=== PATIENT | female | born 1940 | race Caucasian/White ===

== ENCOUNTER 2020-07-02 05:53 | Day surgery (SDC) | payer MEDICARE, BC ==
[2020-06-30 13:35] VITALS: BMI 28.3
[~2020-07-02 05:53] MED LIST: ACETAMINOPHEN TAB 500 MG TAB PO PRN; DEXAMETHASONE SOD PHOSPHATE 4 MG/ML 1 ML VIAL IV ONE; LACTATED RINGERS 1,000 ML IV SCH; MIDAZOLAM 2 MG/2 ML VIAL IV PRN; ONDANSETRON 4 MG/2 ML VIAL IVP ONE; Pre Op ABX Message 1 EACH MISC MISCELLANE ONE
[2020-07-02] MEDS ORDERED: HEPARIN SODIUM,PORCINE 5,000 UNIT/ML 1 ML VIAL SQ PRN (06:00)
[2020-07-02 06:59] LABS: Glucose,Whole Blood 87 mg/dL (75-99)
[2020-07-02] MEDS ORDERED: HYDROmorphone 0.5 MG/0.5 ML SYRINGE IVP PRN (07:00)
[2020-07-02 07:27] LABS: Anisocytosis Slight; Basophils # (A) 0.1 k/uL (0-0.2); Basophils % (A) 1 %; Eosinophils # (A) 0.2 k/uL (0-0.7); Eosinophils % (A) 3 %; HCT 41.3 % (34.0-46.0); HGB 13.6 gm/dL (11.4-16.0); Lymphocytes # (A) 1.6 k/uL (1.0-4.8); Lymphocytes % (A) 25 %; MCH 29.6 pg (25.0-35.0); MCHC 32.8 g/dL (31.0-37.0); MCV 90.4 fL (80.0-100.0); Mean Platelet Volume 7.2; Monocytes # (A) 0.7 k/uL (0-1.0); Monocytes % (A) 10 %; Neutrophils # (A) 3.9 k/uL (1.3-7.7); Neutrophils % (A) 59 %; Platelet Count 228 k/uL (150-450); RBC 4.57 m/uL (3.80-5.40); RDW 16.6 % (11.5-15.5); WBC 6.6 k/uL (3.8-10.6)
[2020-07-02 07:36] LABS: Partial Thromboplastin Time 24.7 sec (22.0-30.0); Prothrombin Time 10.4 sec (9.0-12.0)
[2020-07-02 07:38] LABS: Albumin 3.4 g/dL (3.5-5.0); Calcium 9.5 mg/dL (8.4-10.2); Potassium 4.3 mmol/L (3.5-5.1); Total Bilirubin 1.2 mg/dL (0.2-1.3); Total Protein 6.1 g/dL (6.3-8.2)
[2020-07-02] MEDS ORDERED: SUCCINYLCHOLINE CHLORIDE 100 MG/5 ML SYR IV ONE (07:52)
[2020-07-02] MEDS ORDERED: PROPOFOL 10 MG/ML 20 ML VIAL IV ONE (07:52)
[2020-07-02] MEDS ORDERED: fentaNYL (PF) 50 MCG/ML 2 ML AMP ONE (07:52)
[2020-07-02] MEDS ORDERED: DEXAMETHASONE SOD PHOSPHATE 10 MG/ML 1 ML VIAL ONE (07:52)
[2020-07-02] MEDS ORDERED: ePHEDrine SULFATE/0.9% NACL/PF 50 MG/5 ML SYRINGE IV ONE (07:52)
[2020-07-02] MEDS ORDERED: LIDOCAINE 1% INJ 10MG/ML (20 ML MDV) ONE (07:52)
[2020-07-02] MEDS ORDERED: MIDAZOLAM 2 MG/2 ML VIAL ONE (07:52)
[2020-07-02] MEDS ORDERED: LACTATED RINGERS 1,000 ML IV ONE ×2 (09:19→09:40)
--- NOTE | 2020-07-02 09:35 | P.GSHP ---
History of Present Illness H&P Date: 07/02/20 Chief Complaint: Thyroid goiter This is a 72-year-old female who is developed a massive thyroid goiter. Patient is having compressive symptoms. She presents today for total thyroidectomy. 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 "recent ultrasound showed something on my kidney" History of Any Multi-Drug Resistant Organisms: None Reported Past Surgical History: Adenoidectomy, Appendectomy, Cholecystectomy, Orthopedic Surgery, Tonsillectomy Additional Past Surgical History / Comment(s): mona cataract surgery, bilateral knee surgeries, Past Anesthesia/Blood Transfusion Reactions: No Reported Reaction Smoking Status: Former smoker - Past Family History Mother Family Medical History: Diabetes Mellitus Son(s) Family Medical History: Cancer Additional Family Medical History / Comment(s): brain tumor Medications and Allergies Home Medications Medication Instructions Recorded Confirmed Type Aspirin 81 mg PO DAILY 06/11/15 07/02/20 History Benazepril [Lotensin] 10 mg PO DAILY 06/11/15 07/02/20 History Calcium Carbonate/Vitamin D3 1 each PO DAILY 06/11/15 07/02/20 History [Calcium 600 + Vit D Tablet] Furosemide [Lasix] 40 mg PO DAILY 06/11/15 07/02/20 History Glimepiride [Amaryl] 2 mg PO BID 06/11/15 07/02/20 History Metoprolol Tartrate 25 mg PO BID 06/11/15 07/02/20 History Oxybutynin Chloride 5 mg PO DAILY 06/11/15 07/02/20 History Simvastatin [Zocor] 20 mg PO HS 06/11/15 07/02/20 History Warfarin Sodium 4 mg PO DAILY 06/11/15 07/02/20 History Allergies Allergy/AdvReac Type Severity Reaction Status Date / Time No Known Allergies Allergy Verified 07/02/20 06:37 Surgical - Exam Vital Signs Temp Pulse Resp BP Pulse Ox 98.2 F 45 L 18 167/72 97 07/02/20 06:34 07/02/20 06:34 07/02/20 06:34 07/02/20 06:34 07/02/20 06:34 - General well developed, well nourished, no distress - Eyes PERRL - ENT normal pinna - Neck Massive thyroid gland with left side being greater than the right side no masses - Respiratory normal expansion - Cardiovascular Rhythm: regular - Abdomen Abdomen: soft, non tender Results - Labs 07/02/20 07:00 07/02/20 07:00 Abnormal Lab Results - Last 24 Hours (Table) 07/02/20 07/02/20 Range/Units 07:00 07:00 RDW 16.6 H (11.5-15.5) % Chloride 108 H (98-107) mmol/L BUN 37 H (7-17) mg/dL Creatinine 1.46 H (0.52-1.04) mg/dL Total Protein 6.1 L (6.3-8.2) g/dL Albumin 3.4 L (3.5-5.0) g/dL Diabetes panel 07/02/20 Range/Units 07:00 Sodium 141 (137-145) mmol/L Potassium 4.3 (3.5-5.1) mmol/L Chloride 108 H (98-107) mmol/L Carbon Dioxide 29 (22-30) mmol/L BUN 37 H (7-17) mg/dL Creatinine 1.46 H (0.52-1.04) mg/dL Glucose 93 (74-99) mg/dL Calcium 9.5 (8.4-10.2) mg/dL AST 29 (14-36) U/L ALT 20 (4-34) U/L Alkaline Phosphatase 60 (38-126) U/L Total Protein 6.1 L (6.3-8.2) g/dL Albumin 3.4 L (3.5-5.0) g/dL Calcium panel 07/02/20 Range/Units 07:00 Calcium 9.5 (8.4-10.2) mg/dL Albumin 3.4 L (3.5-5.0) g/dL Pituitary panel 07/02/20 Range/Units 07:00 Sodium 141 (137-145) mmol/L Potassium 4.3 (3.5-5.1) mmol/L Chloride 108 H (98-107) mmol/L Carbon Dioxide 29 (22-30) mmol/L BUN 37 H (7-17) mg/dL Creatinine 1.46 H (0.52-1.04) mg/dL Glucose 93 (74-99) mg/dL Calcium 9.5 (8.4-10.2) mg/dL Adrenal panel 07/02/20 Range/Units 07:00 Sodium 141 (137-145) mmol/L Potassium 4.3 (3.5-5.1) mmol/L Chloride 108 H (98-107) mmol/L Carbon Dioxide 29 (22-30) mmol/L BUN 37 H (7-17) mg/dL Creatinine 1.46 H (0.52-1.04) mg/dL Glucose 93 (74-99) mg/dL Calcium 9.5 (8.4-10.2) mg/dL Total Bilirubin 1.2 (0.2-1.3) mg/dL AST 29 (14-36) U/L ALT 20 (4-34) U/L Alkaline Phosphatase 60 (38-126) U/L Total Protein 6.1 L (6.3-8.2) g/dL Albumin 3.4 L (3.5-5.0) g/dL Assessment and Plan Assessment: Thyroid goiter with compressive symptoms. Patient will undergo total thyroidectomy. Patient aware the risks of surgery including injury to the re current laryngeal nerve and parathyroidectomy and vocal paralysis/hoarseness.
[2020-07-02] MEDS ORDERED: HYDROcodone/APAP 5-325MG 1 EACH TAB PO PRN (09:40)
[2020-07-02] MEDS ORDERED: NALOXONE 0.4 MG/ML 1 ML VIAL IV PRN (09:40)
[2020-07-02] MEDS ORDERED: Acetaminophen-Codeine 300-30mg TAB PO PRN (09:40)
[2020-07-02] MEDS ORDERED: ACETAMINOPHEN TAB 325 MG TAB PO PRN (09:40)
[2020-07-02] MEDS ORDERED: ONDANSETRON 4 MG/2 ML VIAL IVP PRN (09:40)
--- NOTE | 2020-07-02 09:40 | P.OP ---
Date of Procedure: 07/02/20 Preoperative Diagnosis: Thyroid goiter Postoperative Diagnosis: Thyroid goiter Procedure(s) Performed: Total thyroidectomy Anesthesia: REYNALDO Surgeon: Carmelo Kamara Estimated Blood Loss (ml): 100 Pathology: other (Thyroid) Condition: stable Disposition: PACU Description of Procedure: The patient was placed on the operative table in supine position. She received general anesthesia. Her neck was prepped and draped usual sterile fashion. Patient had a large thyroid goiter with the left side being greater than right side. A standard Keene incision was made and then using electrocautery the subcu tissues and platysma was divided. A week later traction placed a wound. The anatomy was distorted due to the large thyroid gland the strap muscles were divided midline. And then using blunt dissection the strap muscles were elevated off of the thyroid gland. The left thyroid gland was massive measured approximately 16 cm in length. The thyroid gland was rotated medially into the wound and then the superior thyroid vessels were ligated with 2-0 silk ties. The inferior thyroid vessels were ligated 2-0 silk ties. And then the gland was further rotated medially. Several small vessels were ligated with the Harmonic scissors. The middle thyroid vessels were ligated 2-0 silk ties. The gland was then dissected off of the trachea. Care was taken to identify and preserve the recurrent laryngeal nerve. The parathyroid glands could not be visualized. The dissection continued on top the trachea using the Harmonic scissors. And then the right thyroid gland was examined. The right thyroid gland appeared to be atrophic using the Harmonic scissors the right thyroid gland was dissected free. The specimen sent to pathology. The wound history of cysts. There is no bleeding seen. A piece of Surgicel was placed in the surgical bed. A MATT drains placed over top of this and brought out through separate stab incision. The strap muscle reapproximated in the midline using 3-0 Vicryl. Platysma was closed 3-0 Vicryl. Skin was closed interrupted 3-0 Monocryl. Dermabond was applied. Patient top she will was sent to recovery in stable condition.
[2020-07-02] MEDS ORDERED: CALCIUM CARBONATE 500 MG CHEWABLE PO PRN (09:45)
[2020-07-02 11:13] VITALS: RESP 16
[2020-07-02 11:53] LABS: Glucose,Whole Blood 218 mg/dL (75-99)
[2020-07-02] MEDS: KETOROLAC 15 MG/ML 1 ML VIAL IVP SCH ×3 (12:06→23:41)
[2020-07-02 17:06] LABS: Glucose,Whole Blood 337 mg/dL (75-99)
[2020-07-02] MEDS: INSULIN ASPART (NovoLOG) 100 UNIT/ML VIAL SQ SCH ×2 (19:05→20:42)
[2020-07-02 20:38] LABS: Glucose,Whole Blood 397 mg/dL (75-99)
[2020-07-02] MEDS: DOCUSATE 100 MG CAP PO SCH (20:42)
[2020-07-02] MEDS: METOPROLOL TARTRATE 25 MG TAB PO SCH (20:42)
[2020-07-03] MEDS: KETOROLAC 15 MG/ML 1 ML VIAL IVP SCH (04:22)
[2020-07-03 04:57] VITALS: BP 132/64; PULSE 63; TEMP 97.6
[2020-07-03 07:36] LABS: Glucose,Whole Blood 224 mg/dL (75-99)
[2020-07-03] MEDS: DOCUSATE 100 MG CAP PO SCH (08:04)
[2020-07-03] MEDS: METOPROLOL TARTRATE 25 MG TAB PO SCH (08:04)
[2020-07-03] MEDS: INSULIN ASPART (NovoLOG) 100 UNIT/ML VIAL SQ SCH (08:04)
[2020-07-03] MEDS ORDERED: CALCIUM CARB-VIT D 500 MG-5 MCG TAB PO SCH (09:00)
[2020-07-03] MEDS ORDERED: lisinopriL 10 MG TAB PO SCH (09:00)
[2020-07-03] MEDS ORDERED: ENOXAPARIN 40 MG/0.4 ML SYRINGE SQ SCH (09:00)
--- NOTE | 2020-07-03 11:34 | P.DS ---
Providers Expected date of discharge: 07/03/20 Attending physician: Carmelo Kamara Consults: 07/02/20 09:40 Consult Physician Routine Consulting Provider: Conner Warren Consult Reason/Comments: Medical management Do you want consulting provider notified?: Yes Primary care physician: Conner Warren Hospital Course: Patient doing well today after thyroidectomy yesterday. Drain with minimal o utput. Calcium 9.0. Patient would like to go home. We'll discharge after drain removal. Follow-up next week. Plan - Discharge Summary Discharge Rx Participant: Yes New Discharge Prescriptions: No Action Calcium Carbonate/Vitamin D3 [Calcium 600 + Vit D Tablet] 1 each PO DAILY Aspirin 81 mg PO DAILY Warfarin Sodium 4 mg PO DAILY Simvastatin [Zocor] 20 mg PO HS Benazepril [Lotensin] 10 mg PO DAILY Glimepiride [Amaryl] 2 mg PO BID Furosemide [Lasix] 40 mg PO DAILY Oxybutynin Chloride 5 mg PO DAILY Metoprolol Tartrate 25 mg PO BID Discharge Medication List Aspirin 81 mg PO DAILY 06/11/15 [History] Benazepril [Lotensin] 10 mg PO DAILY 06/11/15 [History] Calcium Carbonate/Vitamin D3 [Calcium 600 + Vit D Tablet] 1 each PO DAILY 06/11/15 [History] Furosemide [Lasix] 40 mg PO DAILY 06/11/15 [History] Glimepiride [Amaryl] 2 mg PO BID 06/11/15 [History] Metoprolol Tartrate 25 mg PO BID 06/11/15 [History] Oxybutynin Chloride 5 mg PO DAILY 06/11/15 [History] Simvastatin [Zocor] 20 mg PO HS 06/11/15 [History] Warfarin Sodium 4 mg PO DAILY 06/11/15 [History] Follow up Appointment(s)/Referral(s): Carmelo Kamara MD [STAFF PHYSICIAN] - 1 Week
[2020-07-03 12:15] LABS: Glucose,Whole Blood 133 mg/dL (75-99)
--- NOTE | 2020-07-03 20:43 | PN ---
PROGRESS NOTE DATE OF SERVICE: 07/03/2020 CHIEF COMPLAINT: Status post removal of goiter. HISTORY OF PRESENT ILLNESS: This lady is doing well. She is awake and alert. Speech seems to be normal. She has had no twitching or muscle cramps. PHYSICAL EXAMINATION: Chest is clear. Cardiac exam is normal. Abdomen is soft, nontender. Dressing is dry. IMPRESSION: 1. Status post removal of goiter. 2. Previous cerebrovascular accident. 3. Diabetes. PLAN: Increase activity and diet and probably home today or tomorrow. MMODL / IJN: [id number] /
--- NOTE | 2020-07-03 20:55 | CONS ---
CONSULTATION CHIEF COMPLAINT: Neck mass. HISTORY OF PRESENT ILLNESS: This is another admission for this 80-year-old white female who was discovered to have a large neck mass when she was in the office recently. She comes in infrequently. 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 She is on Coumadin and she follows her INR at home. She is brought in for an elective resection of the neck mass. REVIEW OF SYSTEMS: Other than her previous CVA she has had no other problems. She has had no headaches, visual changes, chest pain, shortness of breath, cough, hemoptysis, palpitations, angina, orthopnea, PND, abdominal pain, nausea, vomiting, melena, hematochezia, jaundice, etc. Past medical history, family history and personal and social histories reveal that she is not allergic to any medication. She is on Coumadin daily, benazepril 10 mg once a day, Simvastatin 20 mg once a day, glimepiride 4 mg twice a day, metoprolol 25 mg twice a day, Lasix 40 mg once a day, oxybutynin 5 mg twice a day, 81 mg of aspirin, and calcium 600 mg twice a day. Surgically, she has had a T and A, hysterectomy and cholecystectomy. She used to smoke but does not any longer. PHYSICAL EXAMINATION: Blood pressure is 110/60 with a pulse of 66 and regular, respirations 12, and she is afebrile. In general she appeared to be well developed, well nourished, in no acute distress. Skin color is normal. Skin is warm and dry. Lymph nodes are not enlarged. Head, ears, eyes, nose, mouth and throat were normal. Neck could not be assessed due to her surgical scar. Chest is clear to auscultation and percussion. Cardiac exam is normal sinus rhythm and no murmurs or extra sounds. Abdomen is soft and nontender without any visceromegaly or masses. Bowel sounds are present. Extremities are normal. Neurologically she is intact. She was admitted to the hospital with diagnoses: 1. Large neck mass, presumably goiter. 2. Previous cerebrovascular accident. 3. History of hypertension. 4. Type 2 diabetes mellitus. RECOMMENDATIONS: None at this time and she is in excellent condition for her proposed procedure. MMODL / IJN: [id number] /
== END 2020-07-03 14:20 ==
LOC: OR 05:53 → 5NMEDONC 10:23 → OR 07-03 14:20
PROVIDERS: ATTEND Surgery
DX: C73 Malignant neoplasm of thyroid gland (principal); E11.9 Type 2 diabetes mellitus without complications; E78.5 Hyperlipidemia, unspecified; I10 Essential (primary) hypertension; K76.9 Liver disease, unspecified; I69.351 Hemiplegia and hemiparesis following cerebral infarction affecting right dominant side; Z20.822 Contact with and (suspected) exposure to COVID-19; Z99.3 Dependence on wheelchair; Z86.19 Personal history of other infectious and parasitic diseases; Z90.89 Acquired absence of other organs; Z90.49 Acquired absence of other specified parts of digestive tract; Z98.890 Other specified postprocedural states; Z98.41 Cataract extraction status, right eye; Z98.42 Cataract extraction status, left eye; Z87.891 Personal history of nicotine dependence; Z79.82 Long term (current) use of aspirin; Z79.899 Other long term (current) drug therapy; Z79.84 Long term (current) use of oral hypoglycemic drugs; Z79.01 Long term (current) use of anticoagulants; Z90.710 Acquired absence of both cervix and uterus; Z97.2 Presence of dental prosthetic device (complete) (partial); Z83.3 Family history of diabetes mellitus; Z80.8 Family history of malignant neoplasm of other organs or systems
CPT/HCPCS: 60240; 80053; 82310; 85025; 85610; 85730; 88307; 87635; J2250; J1644; J1100 ×2; J2405; J2001; J1650; J3010; J1885; J0330; J2704

== ENCOUNTER → 2020-09-15 | Outpatient (CLI) | payer MEDICARE, BC | END | disposition home or self-care (01) | LOC: LABWHC1 10:25 | PROVIDERS: ATTEND Internal Medicine Endocrinology, Diabetes & Metabolism | DX: C73 Malignant neoplasm of thyroid gland (principal) | CPT/HCPCS: 36415; 84432; 84443; 86800 ==

== ENCOUNTER → 2020-12-06 | Outpatient (CLI) | payer MEDICARE, BC | END | disposition home or self-care (01) | LOC: LABWHC1 09:48 | PROVIDERS: ATTEND Internal Medicine Endocrinology, Diabetes & Metabolism | DX: C73 Malignant neoplasm of thyroid gland (principal) | CPT/HCPCS: 36415; 84432; 84443; 86800 ==

== ENCOUNTER → 2021-01-11 | Outpatient (CLI) | payer MEDICARE, BC ==
[2021-01-11 19:04] LABS: Basophils # (A) 0.06 X 10*3/uL (0.00-0.10); Basophils % (A) 0.8 %; Eosinophils # (A) 0.17 X 10*3/uL (0.04-0.35); Eosinophils % (A) 2.4 %; HCT 45.1 % (37.2-46.3); HGB 14.3 g/dL (12.0-15.0); Lymphocytes % (A) 22.7 %; MCHC 31.7 g/dL (32.0-37.0); MCV 94.5 fL (80.0-97.0); Mean Platelet Volume 10.3 fL (9.5-12.2); Monocytes # (A) 0.69 X 10*3/uL (0.20-1.00); Monocytes % (A) 9.8 %; Neutrophils # (A) 4.52 X 10*3/uL (1.80-7.70); Platelet Count 261 X 10*3/uL (140-440); RBC 4.77 X 10*6/uL (4.10-5.20); RDW 15.3 % (11.5-14.5); WBC 7.06 X 10*3/uL (4.50-10.00)
[2021-01-13 02:50] LABS: % Iron Saturation 16.84 (12.00-45.00); African American GFR (CKD) 37.7 (60.0-200.0); Albumin 3.7 g/dL (3.8-4.9); Anion Gap 14.6 mmol/L (4.00-12.00); BUN/Creat Ratio 19.28 Ratio (12.00-20.00); Blood Urea Nitrogen 29.3 mg/dL (9.0-27.0); Calcium 9.7 mg/dL (8.7-10.3); Carbon Dioxide 23.9 mmol/L (21.6-31.8); Ferritin 86.6 ng/mL (10.0-291.0); Magnesium 2.2 mg/dL (1.5-2.4); Non-African American GFR(CKD) 32.5 (60.0-200.0); Phosphorus 3.2 mg/dL (2.4-5.1); Potassium 5.1 mmol/L (3.5-5.5)
== END | disposition home or self-care (01) ==
LOC: LABWHC1 10:32
PROVIDERS: ATTEND Nurse Practitioner Family
DX: E55.9 Vitamin D deficiency, unspecified (principal); D63.1 Anemia in chronic kidney disease; N18.4 Chronic kidney disease, stage 4 (severe); N39.0 Urinary tract infection, site not specified; N25.81 Secondary hyperparathyroidism of renal origin; R80.9 Proteinuria, unspecified
CPT/HCPCS: 36415; 80048; 82040; 82306; 82728; 83540; 83550; 83735; 83970; 84100; 85025

== ENCOUNTER → 2021-04-25 | Outpatient (CLI) | payer MEDICARE, BC ==
[2021-04-25 11:54] LABS: Appearance,Urine Clear (Clear); Bacteria,Urine Occasional /hpf; Bilirubin,Urine Negative (Negative); Blood,Urine Negative (Negative); Color,Urine Colorless; Glucose,Urine (UA) Negative (Negative); Ketones,Urine Negative (Negative); Leukocyte Esterase,Urine Trace (Negative); Nitrite,Urine Negative (Negative); Protein,Urine Negative (Negative); Specific Gravity,Urine 1.007 (1.001-1.035); Squamous Epithelial Cell,Urine 1 /hpf (0-4); Urobilinogen,Urine <2.0 mg/dL (<2.0); WBC,Urine 2 /hpf (0-5)
[2021-04-25 12:08] LABS: Creatinine,Urine Random 16.3 mg/dL; Protein/Creatinine Ratio,Urine 0.736
[2021-04-25 14:19] LABS: Basophils # (A) 0.06 X 10*3/uL (0.00-0.10); Basophils % (A) 0.8 %; Eosinophils # (A) 0.17 X 10*3/uL (0.04-0.35); Eosinophils % (A) 2.2 %; HCT 47.8 % (37.2-46.3); HGB 14.8 g/dL (12.0-15.0); Lymphocytes # (A) 1.66 X 10*3/uL (0.90-5.00); Lymphocytes % (A) 21.2 %; MCH 29.2 pg (27.0-32.0); MCV 94.5 fL (80.0-97.0); Mean Platelet Volume 10.2 fL (9.5-12.2); Monocytes # (A) 0.79 X 10*3/uL (0.20-1.00); Monocytes % (A) 10.1 %; Neutrophils # (A) 5.13 X 10*3/uL (1.80-7.70); Neutrophils % (A) 65.4 %; Platelet Count 282 X 10*3/uL (140-440); RBC 5.06 X 10*6/uL (4.10-5.20); WBC 7.83 X 10*3/uL (4.50-10.00)
[2021-04-25 15:57] LABS: % Iron Saturation 15.24 (12.00-45.00); African American GFR (CKD) 42.4 (60.0-200.0); Albumin 3.8 g/dL (3.8-4.9); Anion Gap 11.3 mmol/L (10.00-18.00); BUN/Creat Ratio 15.55 Ratio (12.00-20.00); Blood Urea Nitrogen 21.3 mg/dL (9.0-27.0); Calcium 10.2 mg/dL (8.7-10.3); Carbon Dioxide 30.2 mmol/L (20.0-27.5); Ferritin 72.9 ng/mL (10.0-291.0); Non-African American GFR(CKD) 36.6 (60.0-200.0); Phosphorus 3.6 mg/dL (2.4-5.1); Potassium 4.2 mmol/L (3.5-5.5)
== END | disposition home or self-care (01) ==
LOC: LABWHC1 09:32
PROVIDERS: ATTEND Nurse Practitioner Family
DX: N18.4 Chronic kidney disease, stage 4 (severe) (principal); N39.0 Urinary tract infection, site not specified; D64.9 Anemia, unspecified; R80.9 Proteinuria, unspecified; E83.39 Other disorders of phosphorus metabolism
CPT/HCPCS: 36415; 80048; 81001; 82040; 82306; 82570; 82728; 83540; 83550; 83735; 83970; 84100; 84156; 85025

== ENCOUNTER → 2021-06-27 | Outpatient (CLI) | payer MEDICARE, BC | END | disposition home or self-care (01) | LOC: LABWHC1 14:27 | PROVIDERS: ATTEND Internal Medicine Endocrinology, Diabetes & Metabolism | DX: C73 Malignant neoplasm of thyroid gland (principal) | CPT/HCPCS: 36415; 84432; 84443; 86800 ==

== ENCOUNTER → 2021-08-25 | Outpatient (CLI) | payer MEDICARE, BC ==
[2021-08-25 17:51] LABS: Basophils # (A) 0.08 X 10*3/uL (0.00-0.10); Basophils % (A) 1.1 %; Eosinophils # (A) 0.12 X 10*3/uL (0.04-0.35); Eosinophils % (A) 1.7 %; HCT 44.4 % (37.2-46.3); HGB 13.5 g/dL (12.0-15.0); Immature Grans, Automated 0.4 %; Lymphocytes # (A) 1.76 X 10*3/uL (0.90-5.00); Lymphocytes % (A) 24.5 %; MCH 28.2 pg (27.0-32.0); MCHC 30.4 g/dL (32.0-37.0); MCV 92.9 fL (80.0-97.0); Mean Platelet Volume 10.6 fL (9.5-12.2); Monocytes # (A) 0.95 X 10*3/uL (0.20-1.00); Monocytes % (A) 13.2 %; NRBC Per 100 WBC 0 /100 WBCS (0.0-0.0); Neutrophils # (A) 4.25 X 10*3/uL (1.80-7.70); Neutrophils % (A) 59.1 %; Platelet Count 305 X 10*3/uL (140-440); RBC 4.78 X 10*6/uL (4.10-5.20); WBC 7.19 X 10*3/uL (4.50-10.00)
[2021-08-25 18:30] LABS: % Iron Saturation 17.06 (12.00-45.00); African American GFR (CKD) 29.7 (60.0-200.0); Anion Gap 10.6 mmol/L (10.00-18.00); Blood Urea Nitrogen 36.8 mg/dL (9.0-27.0); Calcium 9.6 mg/dL (8.7-10.3); Carbon Dioxide 27.3 mmol/L (20.0-27.5); Magnesium 2.2 mg/dL (1.5-2.4); Non-African American GFR(CKD) 25.6 (60.0-200.0); Phosphorus 3.7 mg/dL (2.4-5.1); Potassium 4.9 mmol/L (3.5-5.5); Uric Acid 10.2 mg/dL (2.9-7.7)
[2021-08-25 18:58] LABS: Albumin 3.7 g/dL (3.8-4.9)
== END | disposition home or self-care (01) ==
LOC: LABWHC1 10:25
PROVIDERS: ATTEND Internal Medicine Nephrology
DX: N18.4 Chronic kidney disease, stage 4 (severe) (principal)
CPT/HCPCS: 36415; 80048; 82040; 82306; 82728; 83540; 83550; 83735; 83970; 84100; 84550; 85025

== ENCOUNTER 2021-09-14 18:46 | Inpatient (IN) | payer MEDICARE, BC ==
--- NOTE | 2021-09-14 19:22 | ED ---
Fall HPI - General Chief Complaint: Fall Stated Complaint: Fall Time Seen by Provider: 09/14/21 19:05 Source: patient, EMS Mode of arrival: EMS - History of Present Illness Initial Comments: 81-year-old female who is a long-term resident who try to get into her wheelchair at 4 AM this morning when she was unsuccessful slipped out of bed. She vomited floor and injured her left foot. She presents now for evaluation for complaints or reports of head neck or back pain no nausea no vomiting no other symptoms reported complaints. MD Complaint: fall - Related Data Home Medications Medication Instructions Recorded Confirmed Aspirin 81 mg PO DAILY 06/11/15 09/14/21 Benazepril [Lotensin] 5 mg PO DAILY 06/11/15 09/14/21 Metoprolol Tartrate 25 mg PO BID 06/11/15 09/14/21 Oxybutynin Chloride 5 mg PO BID 06/11/15 09/14/21 Simvastatin [Zocor] 20 mg PO DAILY 06/11/15 09/14/21 Warfarin Sodium 4 mg PO Q48H 06/11/15 09/14/21 Glimepiride [Amaryl] 4 mg PO BID 09/14/21 09/14/21 Levothyroxine Sodium [Synthroid] 75 mcg PO DAILY 09/14/21 09/14/21 Warfarin [Coumadin] 3 mg PO Q48H 09/14/21 09/14/21 Allergies Allergy/AdvReac Type Severity Reaction Status Date / Time No Known Allergies Allergy Verified 09/14/21 20:31 Review of Systems ROS Statement: Those systems with pertinent positive or pertinent negative responses have been documented in the HPI. ROS Other: All systems not noted in ROS Statement are negative. 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 "recent ultrasound showed something on my kidney" History of Any Multi-Drug Resistant Organisms: None Reported Past Surgical History: Adenoidectomy, Appendectomy, Cholecystectomy, Hyste rectomy, Orthopedic Surgery, Tonsillectomy Additional Past Surgical History / Comment(s): mona cataract surgery, bilateral knee surgeries, Past Anesthesia/Blood Transfusion Reactions: No Reported Reaction Past Psychological History: No Psychological Hx Reported Smoking Status: Former smoker Past Alcohol Use History: None Reported Past Drug Use History: None Reported - Past Family History Mother Family Medical History: Diabetes Mellitus Son(s) Family Medical History: Cancer Additional Family Medical History / Comment(s): brain tumor General Exam - General Exam Comments Initial Comments: This is a well up well-nourished awake alert female demonstrate a Livingston Coma Scale of 15 Limitations: physical limitation General appearance: alert, in no apparent distress Head exam: Present: atraumatic, normocephalic, normal inspection Eye exam: Present: normal appearance, PERRL, EOMI. Absent: scleral icterus, conjunctival injection, periorbital swelling ENT exam: Present: normal exam, mucous membranes moist Neck exam: Present: normal inspection, full ROM, other (No stridor JVD or bruits). Absent: tenderness, meningismus, lymphadenopathy Respiratory exam: Present: normal lung sounds bilaterally. Absent: respiratory distress, wheezes, rales, rhonchi, stridor Cardiovascular Exam: Present: normal rhythm, bradycardia, normal heart sounds. Absent: systolic murmur, diastolic murmur, rubs, gallop, clicks GI/Abdominal exam: Present: soft, normal bowel sounds. Absent: distended, tenderness, guarding, rebound, rigid Extremities exam: Present: tenderness (Tenderness to palpation over the left hip as well as left foot with some discoloration noted to the foot patient has limited range of motion left side due to previous stroke.), normal capillary refill, other (Examination left foot demonstrates edema and some ecchymosis tenderness palpation no step-off or crepitation. No neurovascular compromise noted.). Absent: full ROM, pedal edema, joint swelling, calf tenderness Back exam: Present: normal inspection Neurological exam: Present: alert, oriented X3, CN II-XII intact, motor sensory deficit Psychiatric exam: Present: normal affect, normal mood Skin exam: Present: warm, dry, intact, normal color. Absent: rash Course Vital Signs 09/14/21 09/14/21 18:55 22:19 Temperature 98.5 F Pulse Rate 58 L 59 L Respiratory 16 18 Rate Blood Pressure 193/73 176/60 O2 Sat by Pulse 96 92 L Oximetry - Reevaluation(s) Reevaluation #1: 09/14/21 22:27 Reevaluation patient finds no new complaints other than the left hip which was ultimately x-rayed and found to be fractured. Patient has not required any pain medication thus far. Medical Decision Making - Medical Decision Making I did discuss findings with the patient and family members were present also with Dr. Gomez patient will be admitted with consultation to Dr. Lawson for medical clearance. 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 - Radiology Data Radiology results: report reviewed (Imaging reviewed x-rays of the foot show no evidence of fracture or subluxation there is however a left hip intertrochanteric fracture), image reviewed Disposition Clinical Impression: Fall, Closed left hip fracture Disposition: ADMITTED IP TO THIS [facility] Condition: Stable Referrals: Conner Warren MD [Primary Care Provider] - 1-2 days Decision Date: 09/14/21 Decision Time: 22:00
--- NOTE | 2021-09-14 19:44 | XR ---
EXAMINATION TYPE: XR foot complete LT DATE OF EXAM: 09/14/2021 7:37 PM INDICATION: Patient age:Female; 81 years old; Reason for study: Trauma; COMPARISON: None TECHNIQUE: The left foot was examined in the AP, oblique, and lateral projections. FINDINGS: No evidence of any acute osseous pathology. No evidence of soft tissue swelling. Joints are preserve d. Atherosclerosis of the arterial vasculature. Calcaneal Achilles enthesophyte. IMPRESSION: No evidence of acute fracture.
--- NOTE | 2021-09-14 22:27 | XR ---
EXAMINATION TYPE: XR Hip LT and AP Pelvis DATE OF EXAM: 09/14/2021 COMPARISON: NONE HISTORY: Fall. Pain. TECHNIQUE: 4 views FINDINGS: There is acute comminuted intertrochanteric fracture left femur. There is mild coxa vera de formity. Pelvic ring is intact. IMPRESSION: Acute intertrochanteric fracture left femur.
[2021-09-14] MEDS ORDERED: HYDROmorphone 0.5 MG/0.5 ML SYRINGE IVP PRN (22:28)
[2021-09-14] MEDS ORDERED: NALOXONE 0.4 MG/ML 1 ML VIAL IV PRN (22:28)
--- NOTE | 2021-09-14 22:28 | XR ---
EXAMINATION TYPE: XR chest 1V DATE OF EXAM: 09/14/2021 COMPARISON: 04/18/2012 HISTORY: Fall. Pain TECHNIQUE: 2 views FINDINGS: 2 AP supine views were obtained of the chest. Heart is normal. Lungs are clear of consolida tion. There is small linear density left midlung field. No heart failure seen. There is slight blunti ng of the costophrenic angles. IMPRESSION: Pulmonary edema and pleural fluid is mostly cleared compared to old exam and consistent w ith resolved heart failure. Normal heart size.
[2021-09-14] MEDS: SODIUM CHLORIDE 0.9% 1,000 ML IV SCH (23:03)
[2021-09-14 23:34] LABS: Basophils % (A) 0 %; Eosinophils # (A) 0.1 k/uL (0-0.7); Eosinophils % (A) 0 %; HCT 38.9 % (34.0-46.0); HGB 12.5 gm/dL (11.4-16.0); Hypochromasia Moderate; Lymphocytes # (A) 0.9 k/uL (1.0-4.8); Lymphocytes % (A) 7 %; MCH 29.1 pg (25.0-35.0); MCHC 32.2 g/dL (31.0-37.0); MCV 90.4 fL (80.0-100.0); Mean Platelet Volume 7.9; Monocytes # (A) 0.9 k/uL (0-1.0); Monocytes % (A) 7 %; Neutrophils # (A) 10.1 k/uL (1.3-7.7); Neutrophils % (A) 84 %; Platelet Count 287 k/uL (150-450); Poikilocytosis Slight; RDW 15.8 % (11.5-15.5)
[2021-09-14 23:47] LABS: Albumin 3.4 g/dL (3.5-5.0); Calcium 9.1 mg/dL (8.4-10.2); Potassium 4.6 mmol/L (3.5-5.1); Total Bilirubin 1.8 mg/dL (0.2-1.3)
[2021-09-15] MEDS: LEVOTHYROXINE 75 MCG TAB PO SCH (05:40)
[2021-09-15] MEDS: ASPIRIN 81 MG PO SCH (08:09)
[2021-09-15] MEDS: GLIMEPIRIDE 4 MG TAB PO SCH ×2 (08:09→21:44)
[2021-09-15] MEDS: OXYBUTYNIN CHLORIDE 5 MG TAB PO SCH ×2 (08:09→21:44)
[2021-09-15] MEDS: ATORVASTATIN 10 MG TAB PO SCH (08:09)
[2021-09-15] MEDS: METOPROLOL TARTRATE 25 MG TAB PO SCH ×2 (08:09→21:44)
[2021-09-15] MEDS: lisinopriL 5 MG TAB PO SCH (08:09)
--- NOTE | 2021-09-15 09:45 | P.HPOR ---
History of Present Illness H&P Date: 09/15/21 Chief Complaint: Left hip pain. This is a 81-year-old female with history of CVA several years ago resulting in left-sided hemiparesis. She typically uses a wheelchair. She was transferring to her wheelchair and fell, sustaining injury to her left hip. She was brought to the emergency department early this morning and admitted to our service for surgical intervention and care for an intertrochanteric hip fracture. The patient takes Coumadin daily for atrial fibrillation. Past Medical History Past Medical History: CVA/TIA, Diabetes Mellitus, Hyperlipidemia, Hypertension, Liver Disease, Thyroid Disorder Additional Past Medical History / Comment(s): Stroke 2005-left sided paralysis, rheumatic fever as child, goiter, hx hepatitis as child' "from water". "recent ultrasound showed something on my kidney" History of Any Multi-Drug Resistant Organisms: None Reported Past Surgical History: Adenoidectomy, Appendectomy, Cholecystectomy, Hysterectomy, Orthopedic Surgery, Tonsillectomy Additional Past Surgical History / Comment(s): mona cataract surgery, bilateral knee surgeries, Past Anesthesia/Blood Transfusion Reactions: No Reported Reaction Past Psychological History: No Psychological Hx Reported Smoking Status: Former smoker Past Alcohol Use History: None Reported Additional Past Alcohol Use History / Comment(s): quit smoking 2015, smoked since age 18 Past Drug Use History: None Reported - Past Family History Mother Family Medical History: Diabetes Mellitus Son(s) Family Medical History: Cancer Additional Family Medical History / Comment(s): brain tumor Medications and Allergies Home Medications Medication Instructions Recorded Confirmed Type Aspirin 81 mg PO DAILY 06/11/15 09/14/21 History Benazepril [Lotensin] 5 mg PO DAILY 06/11/15 09/14/21 History Metoprolol Tartrate 25 mg PO BID 06/11/15 09/14/21 History Oxybutynin Chloride 5 mg PO BID 06/11/15 09/14/21 History Simvastatin [Zocor] 20 mg PO DAILY 06/11/15 09/14/21 History Warfarin Sodium 4 mg PO Q48H 06/11/15 09/14/21 History Glimepiride [Amaryl] 4 mg PO BID 09/14/21 09/14/21 History Levothyroxine Sodium [Synthroid] 75 mcg PO DAILY 09/14/21 09/14/21 History Warfarin [Coumadin] 3 mg PO Q48H 09/14/21 09/14/21 History Allergies Allergy/AdvReac Type Severity Reaction Status Date / Time No Known Allergies Allergy Verified 09/14/21 20:31 Physical Examination This is a pleasant 81-year-old female in no acute distress. She is alert and oriented at this time. Exam of the head neck reveal no obvious deformity. She has full cervical spine motion without difficulty or pain. No paraspinal musculature tenderness noted. Exam of the upper extremities is unremarkable. She has paralysis to her left upper extremity. She has no active motion to the shoulder, elbow, wrist or fingers. Right upper extremity is unremarkable. Exam of the lower extremities reveals shortening and external rotation to the left leg. She does have inability to wiggle her toes slightly. Her pedal pulse is +1/4 bilaterally. Neurovascular status grossly intact to the right lower extremity. Results X-rays of the left hip reveal a comminuted intertrochanteric fracture. - Labs Labs: Abnormal Lab Results - Last 24 Hours (Table) 09/14/21 09/14/21 Range/Units 23:06 23:06 WBC 12.0 H (3.8-10.6) k/uL RDW 15.8 H (11.5-15.5) % Neutrophils # 10.1 H (1.3-7.7) k/uL Lymphocytes # 0.9 L (1.0-4.8) k/uL Chloride 111 H (98-107) mmol/L BUN 20 H (7-17) mg/dL Creatinine 1.27 H (0.52-1.04) mg/dL Glucose 211 H (74-99) mg/dL Total Bilirubin 1.8 H (0.2-1.3) mg/dL Creatine Kinase 159 H (30-135) U/L Total Protein 6.0 L (6.3-8.2) g/dL Albumin 3.4 L (3.5-5.0) g/dL H & H 09/14/21 Range/Units 23:06 Hgb 12.5 (11.4-16.0) gm/dL Hct 38.9 (34.0-46.0) % Result Diagrams: 09/14/21 23:06 09/14/21 23:06 Assessment and Plan (1) Closed intertrochanteric fracture of left hip Current Visit: Yes Status: Acute Code(s): S72.142A - DISPLACED INTERTROCHANTERIC FRACTURE OF LEFT FEMUR, INIT SNOMED Code(s): 50269395 Plan: The clinical and x-ray findings are discussed with the patient. We are planning closed reduction with insertion of intertrochanteric nail tomorrow if cleared medically. The patient is on Coumadin which has been held. She will likely require inpatient rehab postoperatively.
[2021-09-15] MEDS: SODIUM CHLORIDE 0.9% 1,000 ML IV SCH (13:52)
[2021-09-16] MEDS: ONDANSETRON 4 MG/2 ML VIAL IVP PRN ×2 (01:21→19:53)
[2021-09-16] MEDS: SODIUM CHLORIDE 0.9% 1,000 ML IV SCH ×3 (02:13→19:53)
[2021-09-16] MEDS: LEVOTHYROXINE 75 MCG TAB PO SCH (05:54)
[2021-09-16] MEDS ORDERED: ceFAZolin 2 GM in SODIUM CHLORIDE 0.9% 100 ML IVPB PRN (06:00)
[2021-09-16] MEDS ORDERED: TRANEXAMIC ACID 1,000 MG in SODIUM CHLORIDE 0.9% 100 ML IVPB PRN (06:13)
[2021-09-16] MEDS: OXYBUTYNIN CHLORIDE 5 MG TAB PO SCH ×2 (07:31→20:24)
[2021-09-16] MEDS: GLIMEPIRIDE 4 MG TAB PO SCH ×2 (07:31→20:24)
[2021-09-16] MEDS: ATORVASTATIN 10 MG TAB PO SCH (07:31)
[2021-09-16] MEDS: ASPIRIN 81 MG PO SCH (07:31)
[2021-09-16 08:56] LABS: INR 1.7 (<1.2); Prothrombin Time 17.6 sec (9.0-12.0)
[2021-09-16 09:33] LABS: ALT 15 U/L (4-34); AST 19 U/L (14-36); African American GFR (CKD) 53 (>60 ml/min/1.73 sqM); Albumin/Globulin Ratio 1.1; Alkaline Phosphatase 63 U/L (38-126); Anion Gap 7 mmol/L; Blood Urea Nitrogen 20 mg/dL (7-17); Calcium 8.7 mg/dL (8.4-10.2); Carbon Dioxide 25 mmol/L (22-30); Chloride 111 mmol/L (98-107); Globulin 2.7 g/dL; Glucose 253 mg/dL (74-99); Non-African American GFR(CKD) 46 (>60 ml/min/1.73 sqM); Potassium 4.7 mmol/L (3.5-5.1); Sodium 143 mmol/L (137-145); Total Bilirubin 1.4 mg/dL (0.2-1.3); Total Protein 5.7 g/dL (6.3-8.2)
[2021-09-16 09:42] LABS: Basophils # (A) 0.1 k/uL (0-0.2); Basophils % (A) 0 %; Eosinophils % (A) 0 %; HCT 38.2 % (34.0-46.0); HGB 11.9 gm/dL (11.4-16.0); Hypochromasia Marked; Lymphocytes # (A) 0.8 k/uL (1.0-4.8); Lymphocytes % (A) 6 %; MCH 28.9 pg (25.0-35.0); MCHC 31.2 g/dL (31.0-37.0); MCV 92.7 fL (80.0-100.0); Mean Platelet Volume 8.3; Monocytes # (A) 0.8 k/uL (0-1.0); Monocytes % (A) 6 %; Neutrophils # (A) 11.8 k/uL (1.3-7.7); Neutrophils % (A) 87 %; Platelet Count 307 k/uL (150-450); Poikilocytosis Slight; RBC 4.12 m/uL (3.80-5.40); RDW 15.9 % (11.5-15.5); WBC 13.6 k/uL (3.8-10.6)
[2021-09-16] MEDS: METOPROLOL TARTRATE 25 MG TAB PO SCH ×2 (10:13→20:24)
[2021-09-16] MEDS: lisinopriL 5 MG TAB PO SCH (10:13)
--- NOTE | 2021-09-16 11:20 | P.PN ---
Subjective Progress Note Date: 09/16/21 This is a 81-year-old female who is admitted for left hip fracture. Patient is seen and evaluated at bedside today. Patient developed coffee-ground emesis today and is being transferred to selective care unit for further management. Objective - Vital Signs Vital signs: Vital Signs Temp 98.2 F 09/16/21 07:12 Pulse 61 09/16/21 07:12 Resp 17 09/16/21 07:12 BP 122/66 09/16/21 07:12 Pulse Ox 97 09/16/21 07:12 FiO2 Intake & Output 09/15/21 09/16/21 09/16/21 18:59 06:59 18:59 Intake Total 120 Output Total 400 100 Balance -280 -100 Intake: Oral 120 Output: Urine 400 100 Other: Voiding Method External Catheter External Catheter # Bowel Movements 0 - Exam Vital signs are stable. Patient is in no acute distress and is alert and oriented 3. Calf is soft and nontender to palpation. Patient has full foot and ankle motion without pain or difficulty. Sensation intact. Neurovascular status and circulatory status are intact. - Labs CBC & Chem 7: 09/16/21 08:18 09/16/21 08:18 Labs: Abnormal Lab Results - Last 24 Hours (Table) 09/16/21 09/16/21 09/16/21 Range/Units 08:18 08:18 08:18 WBC 13.6 H (3.8-10.6) k/uL RDW 15.9 H (11.5-15.5) % Neutrophils # 11.8 H (1.3-7.7) k/uL Lymphocytes # 0.8 L (1.0-4.8) k/uL PT 17.6 H (9.0-12.0) sec INR 1.7 H (<1.2) Chloride 111 H (98-107) mmol/L BUN 20 H (7-17) mg/dL Creatinine 1.14 H (0.52-1.04) mg/dL Glucose 253 H (74-99) mg/dL Total Bilirubin 1.4 H (0.2-1.3) mg/dL Total Protein 5.7 L (6.3-8.2) g/dL Albumin 3.0 L (3.5-5.0) g/dL Assessment and Plan (1) GI bleed Current Visit: Yes Status: Acute Code(s): K92.2 - GASTROINTESTINAL HEMORRHAGE, UNSPECIFIED SNOMED Code(s): 50734834 (2) Closed intertrochanteric fracture of left hip Current Visit: Yes Status: Acute Code(s): S72.142A - DISPLACED INTERTROCHANTERIC FRACTURE OF LEFT FEMUR, INIT SNOMED Code(s): 02260875 (3) Fall Current Visit: Yes Status: Acute Code(s): W19.XXXA - UNSPECIFIED FALL, INITIAL ENCOUNTER SNOMED Code(s): 8190969 Plan: 1. Patient is being transferred to select care unit for management of GI bleed. Appreciate input from medicine. 2. Patient's surgery for today will be postponed until the patient is medically cleared.
--- NOTE | 2021-09-16 11:27 | CONS ---
CONSULTATION CHIEF COMPLAINT: Fall with pain in the left hip. HISTORY OF PRESENT ILLNESS: This is another admission for this 81-year-old white female. She has had a prior right- sided CVA with left hemiparesis, but is maintained very well at home by her . She apparently got up and her left leg gave out from under her. She denies any chest pain, dizziness, syncope, other neurologic signs or symptoms, etc. She states her leg frequently gives way and she is able usually to prevent a fall. She sustained a fracture and was admitted. REVIEW OF SYSTEMS: She denies any new neurologic signs or symptoms, and she has had no headaches, confusion, change in vision or hearing, chest pain, palpitations, abdominal pain, nausea, vomiting, diarrhea, urinary complaints, etc. Past medical history, family history and personal and social histories are otherwise unremarkable. She does have type 2 NIDDM and blood sugars have been good. Her PT/INR is usually well and checked in the therapeutic range. Past medical history, family history, personal and social histories reveal that she is on simvastatin 20 mg a day, glimepiride 4 mg twice a day, benazepril 10 mg once a day, Lasix 40 mg once a day, metoprolol 25 mg twice a day, Coumadin 4 mg a day, oxybutynin 5 mg twice a day, calcium and 81 mg of aspirin. The remainder of her history is unremarkable. PHYSICAL EXAMINATION: Blood pressure is 132/82 with a pulse of 75 and irregularly irregular. Respirations were 25. In general, she appeared to be well developed, well nourished, in no acute distress. Skin color is normal. Head, ears, eyes, nose, mouth and throat are normal. Chest is clear. She has atrial fibrillation. Abdomen is soft and nontender. There are no masses. Extremities normal except for the irritable left hip. She does have a left hemiparesis. Neurologic exam is usual for her. She is awake, alert, and very well oriented. Speech is fairly normal. IMPRESSION: 1. Fall with left hip fracture. 2. 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 3. Type 2 noninsulin dependent diabetes mellitus. 4. Atrial fibrillation. 5. History of carcinoma of the thyroid. PLAN: 1. Bedrest. 2. IV fluids. 3. Stop Coumadin. 4. Lovenox. 5. ORIF of left hip once determined that she is stable. MMODL / IJN: [id number] /
[2021-09-16 16:44] LABS: Glucose,Whole Blood 289 mg/dL (75-99)
--- NOTE | 2021-09-16 16:49 | CDI ---
Documentation Clarification Form Date: 09/16/2021 04:33:01 PM From: Monika Hoffman RN, CCDS Admit Date: 09/14/2021 10:28:00 PM Patient Name: Phoebe Matamoros Visit Number: [id number] Discharge Date: ATTENTION: The Clinical Documentation Specialists (CDI) and [facility] Coding Staff appreciate your assistance in clarifying documentation. Please respond to the clarification below the line at the bottom and electronically sign. The CDI & [facility] Coding staff will review the response and follow-up if needed. Please note: Queries are made part of the Legal Health Record. If you have any questions, please contact the author of this message via ITS. Dr. Conner Warren Atrial Fibrillation is documented in the past medical history and consult on 09/16/21. Additional clarification regarding the type of atrial fibrillation is requested. History/Risk Factors: Atrial Fibrillation, CVA with left side hemiparesis, Hypertension, Liver Disease, Diabetes Mellitus Clinical Indicators: 81-year-old female present from ECF fall left hip pain. She was ruled in for left comminuted intertrochanteric fracture. She has history of atrial fibrillation with ongoing treatment per home meds of Coumadin 3 mg po q 48 hours. 09/14 Vital signs 193/73 58 16 98.5 96 % on room air. Treatment: Cardiac/Telemetry monitoring Coumadin (hold per orders) Monitor PT/INR per orders Please clarify the type of atrial fibrillation, if known: [ ] Chronic [ ] Permanent [ ] Paroxysmal [ ] Persistent [ ] Other, please specify [ ] Unable to determine (Template Last Revised: August 2020) MTDD
--- NOTE | 2021-09-16 19:07 | PN ---
PROGRESS NOTE CHIEF COMPLAINT: Fracture of the left hip. HISTORY OF PRESENT ILLNESS: During the night this lady was having episodes of nausea and vomiting with some dark material. Her pulses remained slow, however, and her blood pressure has been study. On physical exam her color is good and she is awake and alert. She is not complaining of any abdominal pain. She has had no hematochezia or melena. Her chest is clear. Cardiac exam is unchanged. The abdomen is soft and nontender. IMPRESSION: 1. Fracture of the left hip. 2. Nausea and vomiting, etiology unknown. PLAN: 1. Cancel surgery for today. 2. CBC and chemistry profile. 3. Protonix IV. MMODL / IJN: [id number] /
[2021-09-16 20:10] LABS: Glucose,Whole Blood 275 mg/dL (75-99)
[2021-09-17] MEDS: LEVOTHYROXINE 75 MCG TAB PO SCH (05:58)
[2021-09-17 06:17] LABS: Glucose,Whole Blood 221 mg/dL (75-99)
[2021-09-17] MEDS: OXYBUTYNIN CHLORIDE 5 MG TAB PO SCH ×2 (08:56→20:49)
[2021-09-17] MEDS: GLIMEPIRIDE 4 MG TAB PO SCH ×3 (08:56→20:49)
[2021-09-17] MEDS: lisinopriL 5 MG TAB PO SCH (08:56)
[2021-09-17] MEDS: METOPROLOL TARTRATE 25 MG TAB PO SCH ×2 (08:56→20:49)
[2021-09-17] MEDS: ASPIRIN 81 MG PO SCH (08:56)
--- NOTE | 2021-09-17 10:08 | P.PN ---
Subjective Progress Note Date: 09/17/21 Principal diagnosis: Intertrochanteric fracture left hip. Acute GI bleed. This is a 81-year-old female who was admitted to [facility] on 09/15/2021 after falling and sustaining injury to her left hip. The next evening she had multiple episodes of vomiting with coffee-ground emesis. Surgery was held secondary to GI bleed. The patient is currently nothing by ezequiel and has had decreased vomiting. She has not yet been cleared for surgical intervention for the hip. Vital signs are stable. No new labs today. Objective - Vital Signs Vital signs: Vital Signs Temp 97.8 F 09/17/21 08:00 Pulse 64 09/17/21 08:00 Resp 18 09/17/21 08:00 BP 191/81 09/17/21 08:00 Pulse Ox 90 L 09/17/21 08:00 FiO2 Intake & Output 09/16/21 09/17/21 09/17/21 18:59 06:59 18:59 Intake Total 150 1485 Output Total 202 Balance 150 1283 Intake: Intake, IV Titration 150 1000 Amount Sodium Chloride 0.9% 1, 150 1000 000 ml @ 75 mls/hr IV . [id number] [facility] Rx#:[id number] Oral 485 Output: Urine 202 Other: Voiding Method Indwelling Catheter External Catheter - Exam This is a pleasant 81-year-old female in no acute distress. She is alert and oriented to person and place. She does have some confusion as to recent events. Exam is essentially unchanged. She has external rotation and shortening to the left hip. She has full foot and ankle motion without difficulty or pain. Neurovascular status to the lower extremity is intact. - Labs CBC & Chem 7: 09/16/21 08:18 09/16/21 08:18 Labs: Abnormal Lab Results - Last 24 Hours (Table) 09/16/21 09/16/21 09/17/21 Range/Units 16:42 20:08 06:15 POC Glucose (mg/dL) 289 H 275 H 221 H (75-99) mg/dL Assessment and Plan (1) Closed intertrochanteric fracture of left hip Current Visit: Yes Status: Acute Code(s): S72.142A - DISPLACED I NTERTROCHANTERIC FRACTURE OF LEFT FEMUR, INIT SNOMED Code(s): 17174710 Plan: The clinical and x-ray findings are discussed with the patient. We are planning closed reduction with insertion of intertrochanteric nail whenever she is cleared medically. We will await word from primary care as to when we can proceed. She will likely require inpatient rehab postoperatively.
[2021-09-17 11:44] LABS: Glucose,Whole Blood 185 mg/dL (75-99)
[2021-09-17] MEDS ORDERED: METOCLOPRAMIDE 5 MG/ML 2 ML VIAL IVP PRN (12:47)
[2021-09-17 13:35] LABS: HCT 35.6 % (34.0-46.0); HGB 10.9 gm/dL (11.4-16.0); Hypochromasia Marked; MCHC 30.6 g/dL (31.0-37.0); MCV 94.7 fL (80.0-100.0); Mean Platelet Volume 8.1; Platelet Count 284 k/uL (150-450); Poikilocytosis Slight; RBC 3.76 m/uL (3.80-5.40); RDW 15.7 % (11.5-15.5); WBC 14.9 k/uL (3.8-10.6)
[2021-09-17 13:46] LABS: INR 1.7 (<1.2); Prothrombin Time 16.9 sec (9.0-12.0)
[2021-09-17] MEDS: hydrALAZINE HCL 10 MG TAB PO SCH ×2 (14:20→20:49)
[2021-09-17] MEDS: PANTOPRAZOLE 40 MG/10 ML VIAL IVP SCH ×2 (14:20→20:48)
[2021-09-17] MEDS: lisinopriL 20 MG TAB PO SCH (14:20)
--- NOTE | 2021-09-17 15:21 | PN ---
PROGRESS NOTE CHIEF COMPLAINT: Fracture of left hip. HISTORY OF PRESENT ILLNESS: This lady is stable. There has been concern about whether not she has an upper GI bleed, but she has never developed melena, hematochezia or tachycardia. It is likely she has gastritis. She still awaits surgery. EKG was ordered yesterday, but has not been performed. IV Protonix was also given as a verbal order a nurse yesterday, and it has not been instituted. REVIEW OF SYSTEMS: She has no complaints other than the discomfort. PHYSICAL EXAMINATION: Vital signs are normal. Her chest is clear. Cardiac exam is normal. Abdomen is soft, nontender. Bowel sounds are normal. IMPRESSION: 1. Fracture of the left hip. 2. Previous right-sided cerebrovascular accident with left hemiparesis. 3. History of thyroid carcinoma. PLAN: 1. Reorder Protonix IV. 2. Reorder EKG. 3. Reglan and Maalox will be prescribed. She should be able to go to surgery tomorrow pending any other issues. This is also pending electrocardiogram report. Otherwise, she is cleared for surgery. MMODL / IJN: [id number] /
[2021-09-17] MEDS: MAG HYDROX/AL HYDROX/SIMETH 30 ML CUP PO SCH ×3 (15:52→20:49)
[2021-09-17 16:39] LABS: Glucose,Whole Blood 191 mg/dL (75-99)
[2021-09-17] MEDS: INSULIN ASPART (NovoLOG) 100 UNIT/ML VIAL SQ SCH (18:45)
[2021-09-17] MEDS: SODIUM CHLORIDE 0.9% 1,000 ML IV SCH (19:39)
[2021-09-17 20:21] LABS: Glucose,Whole Blood 174 mg/dL (75-99)
[2021-09-18] MEDS: INSULIN ASPART (NovoLOG) 100 UNIT/ML VIAL SQ SCH ×3 (05:44→18:00)
[2021-09-18] MEDS: LEVOTHYROXINE 75 MCG TAB PO SCH (05:44)
[2021-09-18] MEDS: SODIUM CHLORIDE 0.9% 1,000 ML IV SCH ×3 (06:15→21:37)
[2021-09-18 06:17] LABS: Glucose,Whole Blood 118 mg/dL (75-99)
[2021-09-18] MEDS: MAG HYDROX/AL HYDROX/SIMETH 30 ML CUP PO SCH ×4 (07:31→19:56)
[2021-09-18] MEDS: GLIMEPIRIDE 4 MG TAB PO SCH ×2 (07:31→19:55)
[2021-09-18] MEDS: ASPIRIN 81 MG PO SCH (08:01)
[2021-09-18] MEDS: lisinopriL 20 MG TAB PO SCH (08:34)
[2021-09-18] MEDS: OXYBUTYNIN CHLORIDE 5 MG TAB PO SCH ×2 (08:34→19:55)
[2021-09-18] MEDS: hydrALAZINE HCL 10 MG TAB PO SCH ×2 (08:35→22:10)
[2021-09-18] MEDS: METOPROLOL TARTRATE 25 MG TAB PO SCH (08:35)
[2021-09-18] MEDS: PANTOPRAZOLE 40 MG/10 ML VIAL IVP SCH (08:35)
--- NOTE | 2021-09-18 09:04 | P.GSCN ---
History of Present Illness Consult date: 09/18/21 Reason for Consult: Upper GI bleeding History of present illness: 81-year-old female hospitalized after a fall with hip fracture. Patient with history of previous CVA. Is on Coumadin at home. During the hospital stay has had what sounds like 3 separate episodes of vomiting 2 of which were thought to be coffee ground with some blood. The last episode was yesterday morning at 2 AM and this was bilious. Denies abdominal pain. No history of ulcers. Does not take NSAIDs at home. No melanotic stools per the patient. Review of Systems The patient denies any acute changes in vision or hearing, no dysphagia or odynophagia, no chest pain or shortness of breath, no dysuria or hematuria, no headache, no runny nose, no rectal bleeding or melena, no unexplained weight loss Past Medical History Past Medical History: CVA/TIA, Diabetes Mellitus, Hyperlipidemia, Hypertension, Liver Disease, Thyroid Disorder Additional Past Medical History / Comment(s): Stroke 2005-left sided paralysis, rheumatic fever as child, goiter, hx hepatitis as child' "from water". "recent ultrasound showed something on my kidney" History of Any Multi-Drug Resistant Organisms: None Reported Past Surgical History: Adenoidectomy, Appendectomy, Cholecystectomy, Hysterectomy, Orthopedic Surgery, Tonsillectomy Additional Past Surgical History / Comment(s): mona cataract surgery, bilateral knee surgeries, Past Anesthesia/Blood Transfusion Reactions: No Reported Reaction Past Psychological History: No Psychological Hx Reported Smoking Status: Former smoker Past Alcohol Use History: None Reported Additional Past Alcohol Use History / Comment(s): quit smoking 2015, smoked since age 18 Past Drug Use History: None Reported - Past Family History Mother Family Medical History: Diabetes Mellitus Son(s) Family Medical History: Cancer Additional Family Medical History / Comment(s): brain tumor Medications and Allergies Home Medications Medication Instructions Recorded Confirmed Type Aspirin 81 mg PO DAILY 06/11/15 09/14/21 History Benazepril [Lotensin] 5 mg PO DAILY 06/11/15 09/14/21 History Metoprolol Tartrate 25 mg PO BID 06/11/15 09/14/21 History Oxybutynin Chloride 5 mg PO BID 06/11/15 09/14/21 History Simvastatin [Zocor] 20 mg PO DAILY 06/11/15 09/14/21 History Warfarin Sodium 4 mg PO Q48H 06/11/15 09/14/21 History Glimepiride [Amaryl] 4 mg PO BID 09/14/21 09/14/21 History Levothyroxine Sodium [Synthroid] 75 mcg PO DAILY 09/14/21 09/14/21 History Warfarin [Coumadin] 3 mg PO Q48H 09/14/21 09/14/21 History Allergies Allergy/AdvReac Type Severity Reaction Status Date / Time No Known Allergies Allergy Verified 09/14/21 20:31 Surgical - Exam Vital Signs Temp Pulse Resp BP Pulse Ox 98.5 F 58 L 16 193/73 96 09/14/21 18:55 09/14/21 18:55 09/14/21 18:55 09/14/21 18:55 09/14/21 18:55 Physical exam: General: Well-developed, well-nourished HEENT: Normocephalic, sclerae nonicteric Abdomen: Nontender, nondistended Extremities: Left hip swelling Neuro: Alert and oriented Results - Labs 09/17/21 13:05 09/16/21 08:18 Abnormal Lab Results - Last 24 Hours (Table) 09/17/21 09/17/21 09/17/21 Range/Units 11:37 13:05 13:05 WBC 14.9 H (3.8-10.6) k/uL RBC 3.76 L (3.80-5.40) m/uL Hgb 10.9 L (11.4-16.0) gm/dL MCHC 30.6 L (31.0-37.0) g/dL RDW 15.7 H (11.5-15.5) % PT 16.9 H (9.0-12.0) sec INR 1.7 H (<1.2) POC Glucose (mg/dL) 185 H (75-99) mg/dL 09/17/21 09/17/21 09/18/21 Range/Units 16:38 20:19 06:16 WBC (3.8-10.6) k/uL RBC (3.80-5.40) m/uL Hgb (11.4-16.0) gm/dL MCHC (31.0-37.0) g/dL RDW (11.5-15.5) % PT (9.0-12.0) sec INR (<1.2) POC Glucose (mg/dL) 191 H 174 H 118 H (75-99) mg/dL Assessment and Plan (1) GI bleed Narrative/Plan: 81-year-old female with upper GI bleed that appears to be resolving. Patient is stable to proceed with hip surgery from our point of view at this time. Hold anticoagulation for now other than DVT prophylaxis. We'll tentatively proceed with upper endoscopy on Sunday. Continue antiacids. Current Visit: Yes Status: Acute Code(s): K92.2 - GASTROINTESTINAL HEMORRHAGE, UNSPECIFIED SNOMED Code(s): 30333038
[2021-09-18] MEDS ORDERED: GLYCOPYRROLATE 0.2 MG/ML 2 ML VIAL ONE (09:37)
[2021-09-18] MEDS ORDERED: fentaNYL (PF) 50 MCG/ML 2 ML AMP ONE (09:37)
[2021-09-18] MEDS ORDERED: NEOSTIGMINE 1 MG/ML 10 ML VIAL ONE (09:37)
[2021-09-18] MEDS ORDERED: ePHEDrine 50 MG/ML 1 ML VIAL ONE (09:37)
[2021-09-18] MEDS ORDERED: LIDOCAINE 2% INJ 20 MG/ML (2 ML VIAL) ONE (09:37)
[2021-09-18] MEDS ORDERED: ONDANSETRON 4 MG/2 ML VIAL ONE (09:37)
[2021-09-18] MEDS ORDERED: ROCURONIUM 10 MG/ML (5 ML VIAL) IV ONE (09:37)
[2021-09-18] MEDS ORDERED: PROPOFOL 10 MG/ML 20 ML VIAL IV ONE (09:37)
[2021-09-18] MEDS ORDERED: SODIUM CHLORIDE 0.9% 1,000 ML IV ONE (09:40)
[2021-09-18] MEDS ORDERED: HYDROmorphone 0.5 MG/0.5 ML SYRINGE IVP PRN ×3 (10:27)
[2021-09-18] MEDS ORDERED: MAGNESIUM HYDROXIDE 2,400 MG/10 ML CUP PO PRN (10:27)
[2021-09-18] MEDS ORDERED: NALOXONE 0.4 MG/ML 1 ML VIAL IV PRN (10:27)
--- NOTE | 2021-09-18 10:37 | P.OP ---
Date of Procedure: 09/18/21 Preoperative Diagnosis: Four-part intertrochanteric fracture left hip Postoperative Diagnosis: Four-part intertrochanteric fracture left hip Procedure(s) Performed: Close reduction and intramedullary nailing left hip Implants: [employer] Tri[employer] Intertan nail 125, 11.5 mm x 18 cm. [employer] Intertan integrated-interlocking lag screw, 100 mm lag screw, 95 mm compression screw. [employer] L-P screw, 5.0 mm x 35 mm. Anesthesia: spinal Surgeon: Christiano Stock Estimated Blood Loss (ml): 50 Pathology: none sent Condition: stable Disposition: PACU Indications for Procedure: This is a 81-year-old female that sustained a ground-level fall at home. She was originally scheduled for a close reduction and intramedullary nailing of her left hip on Sunday, but due to medical complications her surgery was delayed. I've seen and evaluated patient as well as reviewed the x-rays and discussed the surgical treatment options with the patient and her family. They're agreeable to close intramedullary nailing of her left hip and informed consent was obtained. Operative Findings: The operative findings are consistent with a four-part intertrochanteric fracture left hip. Description of Procedure: The patient was seen in the preoperative area, consent was reviewed, and the operative site was marked with a skin marker. The surgical procedure was discussed at length with both the patient and the family at the bedside. All questions were answered to the best of my ability. The patient was brought to the operating room and placed on the fracture table. Anesthesia was administered by the anesthesia department. 2 g of Ancef were administered intravenously. The patient was placed supine on the fracture table with the fractured extremity in traction boot. The other extremity was placed in a well leg peterson and the bony prominences were well padded. A universal timeout was then performed which confirmed the patient's name, surgical site, ALLERGIES, and consent. Fracture reduction was performed with a traction and abduction maneuver which was confirmed with fluoroscopy, both AP and lateral views.. After reduction was performed, the extremity was then prepped with ChloraPrep solution and draped in the usual sterile fashion. Utilizing fluoroscopy to identify the tip of the greater trochanter, a 3 cm longitudinal incision was made just proximal to the greater trochanter. Incision was carried through the fascia to the tip of the greater trochanter. Utilizing a curved awl, the entry point was created at the tip of the greater trochanter and centralized in the AP and lateral planes. These locations were confirmed by fluoroscopy. A guidewire was then inserted down the medullary canal. Sequentially reaming of the femur was performed to 13 mm distally and 17 mm proximally with the channel reamer. After reaming, appropriate size nail was inserted over the guidewire. The nail was inserted to the appropriate depth and the guidewire was removed. Placement of the johny was confirmed with both AP and lateral fluoroscopic views. The lag screw drill sleeve was placed in the jig and a small skin incision was made on the lateral aspect of the leg and the lag screw drill sleeve was locked into the guide. The 3.2 mm guide pin sleeve was inserted through the lag screw drill sleeve down to bone. A 3.2 mm distally threaded guidewire was inserted through the guide pin sleeve. The guidewire was inserted in the desired position in the femoral head, both anterior and posterior. The lag screw length cage was inserted over the guidepin to the back of the lag screw drill sleeve. Lag screw length was then measured from the cage. Next, the 7.0 mm compression screw starter drill was inserted in the lag screw drill sleeve beneath the guidepin. The compression screw starter drill was advanced under power until it abutted the back and of the lag screw drill sleeve. The 7.0 mm compression screw drill was inserted through the lag screw drill sleeve into the hole created by the compression screw starter drill. This was advanced under fluoroscopy to a depth 5 mm less and the measurement taken for the guidepin. The compression screw drill was removed and the antirotation bar was inserted into the same hole. The 3.2 mm guide pin sleeve was then removed from the drill guide. The lag screw drill was then inserted to a depth that was measured by the lag screw gauge. This was done under fluoroscopy. The lag screw was inserted over the guidewire to the appropriate depth using fluoroscopy. Traction was then released. The antirotation bar was then removed and the compression screw was advanced through the lag screw drill sleeve beneath the lag screw. This was advanced to the appropriate compression was achieved. The proximal drill guide was then removed and the distal drill guide was then inserted in the jig. Skin incision was made down to bone and the distal drill guide was then placed. Distal hole was then drilled with a 4.0 mm drill and measured to the appropriate depth. Distal screw was then placed. The entire assembly was then removed and final fluoroscopic x-rays were obtained. The wounds were then irrigated copiously with saline solution. Fascia was closed with 0-Vicryl. Subcutaneous tissues were closed with 2-0 Vicryl and the skin was closed with maya. Sterile dressings were applied. The patient was transported to the recovery room in stable condition.
--- NOTE | 2021-09-18 10:42 | FL ---
EXAMINATION TYPE: FL guidance operating room DATE OF EXAM: 09/18/2021 HISTORY: Fluoroscopy time 31 seconds of fluoroscopy provided. IMPRESSION: 1. Fluoroscopy time.
--- NOTE | 2021-09-18 10:43 | XR ---
EXAMINATION TYPE: XR Hip Limited LT DATE OF EXAM: 09/18/2021 COMPARISON: NONE HISTORY: Postop TECHNIQUE: One view submitted. FINDINGS: There is postsurgical change in near anatomic alignment. There is soft tissue edema and emphysema. IMPRESSION: 1. Postoperative change. Appears in near-anatomic alignment.
[2021-09-18 11:04] LABS: Glucose,Whole Blood 99 mg/dL (75-99)
[2021-09-18] MEDS ORDERED: HYDROmorphone 0.5 MG/0.5 ML SYRINGE IVP ONE (11:15)
[2021-09-18 11:35] LABS: Appearance,Urine Turbid (Clear); Bacteria,Urine Many /hpf; Bilirubin,Urine Negative (Negative); Blood,Urine Small (Negative); Color,Urine Yellow; Glucose,Urine (UA) Negative (Negative); Ketones,Urine Trace (Negative); Leukocyte Esterase,Urine Large (Negative); Nitrite,Urine Positive (Negative); Protein,Urine 2+ (Negative); RBC,Urine 30 /hpf (0-5); Specific Gravity,Urine 1.021 (1.001-1.035); Squamous Epithelial Cell,Urine 6 /hpf (0-4); Urobilinogen,Urine <2.0 mg/dL (<2.0); WBC,Urine >182 /hpf (0-5)
[2021-09-18 12:10] LABS: Basophils # (A) 0.1 k/uL (0-0.2); Basophils % (A) 1 %; Eosinophils # (A) 0.2 k/uL (0-0.7); Eosinophils % (A) 2 %; HCT 34.9 % (34.0-46.0); HGB 10.3 gm/dL (11.4-16.0); Hypochromasia Marked; Lymphocytes # (A) 1.1 k/uL (1.0-4.8); Lymphocytes % (A) 11 %; MCH 27.9 pg (25.0-35.0); MCHC 29.5 g/dL (31.0-37.0); MCV 94.6 fL (80.0-100.0); Mean Platelet Volume 9.9; Monocytes # (A) 0.9 k/uL (0-1.0); Monocytes % (A) 9 %; Neutrophils # (A) 7.2 k/uL (1.3-7.7); Neutrophils % (A) 75 %; Platelet Count 244 k/uL (150-450); Poikilocytosis Slight; RBC 3.69 m/uL (3.80-5.40); RDW 15.6 % (11.5-15.5); WBC 9.7 k/uL (3.8-10.6)
--- NOTE | 2021-09-18 13:03 | PN ---
PROGRESS NOTE DATE OF SERVICE: 09/18/2021 CHIEF COMPLAINT: Status post ORIF of the left hip. HISTORY OF PRESENT ILLNESS: This lady is doing well postoperatively. She is not having any chest pain, shortness of breath, confusion, nausea, etc. PHYSICAL EXAMINATION: Her chest is clear. Cardiac exam is normal. The abdomen is soft and nontender. Dressing on the left hip is dry. IMPRESSION: 1. Fracture of the left hip, status post open reduction internal fixation. 2. Old right-sided cerebrovascular accident. 3. Nausea and vomiting, resolved. PLAN: 1. Follow for routine medical management postoperatively. 2. EKG was ordered twice and has still not been done. MMODL / IJN: [id number] /
[2021-09-18 16:28] LABS: Glucose,Whole Blood 64 mg/dL (75-99)
[2021-09-18 16:49] LABS: Glucose,Whole Blood 67 mg/dL (75-99)
[2021-09-18 17:09] LABS: Glucose,Whole Blood 81 mg/dL (75-99)
[2021-09-18] MEDS ORDERED: DILTIAZEM DRIP BOLUS FROM BAG 1 MG SOLN IV ONE (17:36)
[2021-09-18] MEDS ORDERED: ENOXAPARIN 40 MG/0.4 ML SYRINGE SQ STA (17:37)
[2021-09-18] MEDS ORDERED: DILTIAZEM 125 MG in SODIUM CHLORIDE 0.9% 100 ML IV SCH (17:45)
[2021-09-18] MEDS: ACETAMINOPHEN TAB 325 MG TAB PO PRN (18:11)
[2021-09-18] MEDS: METOPROLOL SUCCINATE (ER) 25 MG TAB.ER.24H PO SCH (18:12)
[2021-09-18] MEDS: SENNOSIDES-DOCUSATE SODIUM 1 EACH TAB PO SCH (19:56)
[2021-09-18] MEDS: PANTOPRAZOLE 40 MG TABLET PO SCH (19:56)
[2021-09-18 20:34] LABS: Glucose,Whole Blood 120 mg/dL (75-99)
[2021-09-18] MEDS: LACTATED RINGERS 1,000 ML IV SCH (21:36)
[2021-09-19] MEDS: ACETAMINOPHEN TAB 325 MG TAB PO PRN (01:47)
[2021-09-19 06:14] LABS: Glucose,Whole Blood 55 mg/dL (75-99)
[2021-09-19 06:41] LABS: Glucose,Whole Blood 67 mg/dL (75-99)
[2021-09-19] MEDS: INSULIN ASPART (NovoLOG) 100 UNIT/ML VIAL SQ SCH ×3 (06:43→17:06)
[2021-09-19] MEDS: LEVOTHYROXINE 75 MCG TAB PO SCH (06:50)
[2021-09-19 07:07] LABS: Glucose,Whole Blood 85 mg/dL (75-99)
[2021-09-19] MEDS: SODIUM CHLORIDE 0.9% 1,000 ML IV SCH ×2 (09:06→17:06)
[2021-09-19] MEDS: MAG HYDROX/AL HYDROX/SIMETH 30 ML CUP PO SCH ×4 (09:09→19:49)
[2021-09-19] MEDS: ENOXAPARIN 40 MG/0.4 ML SYRINGE SQ SCH (09:13)
[2021-09-19] MEDS: lisinopriL 20 MG TAB PO SCH (09:13)
[2021-09-19] MEDS: OXYBUTYNIN CHLORIDE 5 MG TAB PO SCH ×2 (09:13→19:50)
[2021-09-19] MEDS: PANTOPRAZOLE 40 MG TABLET PO SCH ×2 (09:13→19:49)
[2021-09-19] MEDS: METOPROLOL SUCCINATE (ER) 25 MG TAB.ER.24H PO SCH (09:13)
[2021-09-19] MEDS: LACTATED RINGERS 1,000 ML IV SCH (09:14)
[2021-09-19 11:46] LABS: Glucose,Whole Blood 220 mg/dL (75-99)
--- NOTE | 2021-09-19 12:07 | P.PN ---
Subjective Progress Note Date: 09/19/21 CHIEF COMPLAINT: Upper GI bleed HISTORY OF PRESENT ILLNESS: Surgical service is following in regards to helen elias's upper GI bleed. She had been having coffee ground emesis. This has resolved. Patient did have atrial fibrillation with rapid ventricular response and is currently on a Cardizem drip. Cardiology is now on consult. Patient denies any abdominal pain. Hemoglobin yesterday 10.3. CBC for today is pending PHYSICAL EXAM: VITAL SIGNS: Reviewed. GENERAL: Well-developed in no acute distress. HEENT: No sclera icterus. Extraocular movements grossly intact. Moist buccal mucosa. Head is atraumatic, normocephalic. ABDOMEN: Soft. Nondistended. Nontender. NEUROLOGIC: Alert and oriented. Cranial nerves II through XII grossly intact. ASSESSMENT: 1. Upper GI bleed with coffee-ground emesis. Now resolved. 2. Atrial fibrillation with rapid ventricular response. Followed by cardiology 3. Left hip fracture status post orthopedic intervention PLAN: -Patient tentatively scheduled for EGD tomorrow, 09/20/[address] Borwn -continue PPI -Continue to hold Coumadin -Continue to monitor hemoglobin -Continue to monitor for any signs or symptoms of bleeding Physician Control Room Operator note has been reviewed by physician. Signing provider agrees with the documented findings, assessment, and plan of care. Patient doing well. No further nausea or vomiting. Denies abdominal pain. Pain at the left hip improving. Continue antiacids. Tentatively plan EGD tomorrow. Objective - Vital Signs Vital signs: Vital Signs Temp 98.0 F 09/19/21 09:00 Pulse 121 H 09/19/21 11:11 Resp 16 09/19/21 11:11 BP 92/64 09/19/21 11:11 Pulse Ox 90 L 09/19/21 11:38 FiO2 Intake & Output 09/18/21 09/19/21 09/19/21 18:59 06:59 18:59 Intake Total 720 240 Output Total 225 325 Balance 495 -85 Intake: IV 450 Oral 270 240 Output: Urine 175 325 Stool 0 Urine/Stool Mix 0 Emesis 0 Estimated Blood Loss 50 Other: Voiding Method External Catheter Indwelling Catheter Indwelling Catheter # Voids 0 # Bowel Movements 0 - Labs CBC & Chem 7: 09/19/21 12:08 09/16/21 08:18 Labs: Abnormal Lab Results - Last 24 Hours (Table) 09/18/21 09/18/21 09/18/21 Range/Units 11:58 16:26 16:47 RBC 3.69 L (3.80-5.40) m/uL Hgb 10.3 L (11.4-16.0) gm/dL MCHC 29.5 L (31.0-37.0) g/dL RDW 15.6 H (11.5-15.5) % POC Glucose (mg/dL) 64 L 67 L (75-99) mg/dL 09/18/21 09/19/21 09/19/21 Range/Units 20:33 06:13 06:39 RBC (3.80-5.40) m/uL Hgb (11.4-16.0) gm/dL MCHC (31.0-37.0) g/dL RDW (11.5-15.5) % POC Glucose (mg/dL) 120 H 55 L 67 L (75-99) mg/dL 09/19/21 Range/Units 11:45 RBC (3.80-5.40) m/uL Hgb (11.4-16.0) gm/dL MCHC (31.0-37.0) g/dL RDW (11.5-15.5) % POC Glucose (mg/dL) 220 H (75-99) mg/dL Microbiology - Last 24 Hours (Table) 09/18/21 10:55 Urine Culture - Preliminary Urine,Voided
[2021-09-19] MEDS ORDERED: METOPROLOL TARTRATE 25 MG TAB PO STA (12:11)
[2021-09-19] MEDS: hydrALAZINE HCL 10 MG TAB PO SCH (12:15)
[2021-09-19] MEDS: GLIMEPIRIDE 4 MG TAB PO SCH (12:15)
[2021-09-19 12:23] LABS: HCT 34.5 % (34.0-46.0); HGB 10.1 gm/dL (11.4-16.0); Hypochromasia Marked; MCH 27.6 pg (25.0-35.0); MCHC 29.3 g/dL (31.0-37.0); MCV 94.3 fL (80.0-100.0); Mean Platelet Volume 8.9; Platelet Count 309 k/uL (150-450); Poikilocytosis Slight; RBC 3.65 m/uL (3.80-5.40); RDW 15.6 % (11.5-15.5); WBC 11.6 k/uL (3.8-10.6)
--- NOTE | 2021-09-19 13:03 | XR ---
EXAMINATION TYPE: XR chest 1V DATE OF EXAM: 09/19/2021 COMPARISON: 09/14/2021 HISTORY: 81 year-old female shortness of breath TECHNIQUE: Single frontal view of the chest is obtained. FINDINGS: Heart upper limits of normal in size. Hyperinflation. Interstitial prominence persists. Wo rsening bilateral lower lung airspace opacities. IMPRESSION: Worsening bilateral lower lung airspace opacities. Correlate for possible pneumonia.
--- NOTE | 2021-09-19 13:41 | P.PN ---
Subjective Progress Note Date: 09/19/21 This patient is a 81-year-old female who is status-post closed reduction and intramedullary nailing left hip. Today is postoperative day #1. The patient is seen and examined bedside. She is currently up to the bedside chair. She states the pain in the left hip is well controlled. Currently patient in atrial fibrillation with RVR and is receiving a Cardizem drip. Patient is tentatively scheduled for an EGD with Dr. Brown tomorrow for upper GI bleed. Patient has no new complaints this morning. Objective - Vital Signs Vital signs: Vital Signs Temp 98.0 F 09/19/21 09:00 Pulse 121 H 09/19/21 11:11 Resp 16 09/19/21 11:11 BP 92/64 09/19/21 11:11 Pulse Ox 90 L 09/19/21 11:38 FiO2 Intake & Output 09/18/21 09/19/21 09/19/21 18:59 06:59 18:59 Intake Total 720 240 Output Total 225 325 Balance 495 -85 Intake: IV 450 Oral 270 240 Output: Urine 175 325 Stool 0 Urine/Stool Mix 0 Emesis 0 Estimated Blood Loss 50 Other: Voiding Method External Catheter Indwelling Catheter Indwelling Catheter # Voids 0 # Bowel Movements 0 - Exam on examination, the patient is sitting up in the bedside chair in no apparent distress. She is alert and oriented 3. Inspection of her left hip, there is a clean, dry, intact surgical dressing in place. No bleeding or drainage to the dressing. There is mild swelling in the thigh, the thigh soft and compressible. Patient is able to wiggle her left toes appropriately. The dorsalis pedis pulses palpable, the left lower extremity is warm and well perfused with brisk capillary refill distally. Calf is soft and nontender to palpation. - Labs CBC & Chem 7: 09/19/21 12:08 09/16/21 08:18 Labs: Abnormal Lab Results - Last 24 Hours (Table) 09/18/21 09/18/21 09/18/21 Range/Units 16:26 16:47 20:33 WBC (3.8-10.6) k/uL RBC (3.80-5.40) m/uL Hgb (11.4-16.0) gm/dL MCHC (31.0-37.0) g/dL RDW (11.5-15.5) % POC Glucose (mg/dL) 64 L 67 L 120 H (75-99) mg/dL Troponin I (0.000-0.034) ng/mL 09/19/21 09/19/21 09/19/21 Range/Units 06:13 06:39 11:45 WBC (3.8-10.6) k/uL RBC (3.80-5.40) m/uL Hgb (11.4-16.0) gm/dL MCHC (31.0-37.0) g/dL RDW (11.5-15.5) % POC Glucose (mg/dL) 55 L 67 L 220 H (75-99) mg/dL Troponin I (0.000-0.034) ng/mL 09/19/21 09/19/21 Range/Units 12:08 12:08 WBC 11.6 H (3.8-10.6) k/uL RBC 3.65 L (3.80-5.40) m/uL Hgb 10.1 L (11.4-16.0) gm/dL MCHC 29.3 L (31.0-37.0) g/dL RDW 15.6 H (11.5-15.5) % POC Glucose (mg/dL) (75-99) mg/dL Troponin I 0.045 H* (0.000-0.034) ng/mL Microbiology - Last 24 Hours (Table) 09/18/21 10:55 Urine Culture - Preliminary Urine,Voided Assessment and Plan Assessment: Status-post closed reduction and intramedullary nailing left hip on 09/18/21. Post-operative day #1. Plan: - Toe-touch weightbearing on the operative extremity. Up with assistance, with a walker. - Physical therapy for gait and balance training. - Daily dressing changes to left hip. - Patient currently receiving Lovenox for DVT prophylaxis. We will defer anti- coagulation to internal medicine, as patient has upper GI bleeding and is scheduled for EGD tomorrow with Dr. Brown. - Pain management as needed. - Medical management per internal medicine, cardiology. - Case management consult for discharge planning.
[2021-09-19 16:46] LABS: Glucose,Whole Blood 182 mg/dL (75-99)
[2021-09-19] MEDS ORDERED: FUROSEMIDE 10 MG/ML 4 ML VIAL IV STA (17:55)
[2021-09-19] MEDS: HYDROcodone/APAP 5-325MG 1 EACH TAB PO PRN (19:06)
--- NOTE | 2021-09-19 19:08 | PN ---
PROGRESS NOTE DATE OF SERVICE: 09/15/2021 CHIEF COMPLAINT: Fracture of the left hip. HISTORY OF PRESENT ILLNESS: This lady is fairly comfortable. Because she fractured the hip on her paralytic side, her sensation is diminished. She is on Coumadin, and this will be stopped. She is being prepared for surgery, but further studies should be performed first, including EKG. There is also a history that she has been throwing up some dark material. Her pulse has been slow at 59 and blood pressure is stable. She has had no diarrhea or melena. PHYSICAL EXAMINATION: Her color is good. She is awake and alert. Chest is clear. Cardiac exam sounds like sinus rhythm. Abdomen is soft and nontender. There is no tenderness in the epigastrium. Bowel sounds are present. IMPRESSION: 1. Fracture of the left hip. 2. Nausea and vomiting. 3. Possible hematemesis. 4. Previous right-sided cerebrovascular accident with left hemiparesis. PLAN: 1. Stop Coumadin. 2. Follow vital signs closely. 3. Start IV Protonix. 4. Hold surgery today, possible. MMODL / IJN: [id number] /
--- NOTE | 2021-09-19 19:14 | PN ---
PROGRESS NOTE DATE OF SERVICE: 09/19/2021 CHIEF COMPLAINT: Status post left hip fracture with ORIF. HISTORY OF PRESENT ILLNESS: This lady has had some difficulties. She has gone back into atrial fibrillation with a fairly rapid ventricular response, considering her age and condition. Rates are going up to around 120. Her pulse ox is fluctuating slightly and she seems a little bit short of breath. She denies any chest pain. She has had no further vomiting. She does have a slightly elevated troponin as well as a BNP. PHYSICAL EXAMINATION: Color is good. She is awake and alert. She does not seem to be short of breath and she is not complaining of any chest pain or nausea. Chest is clear and the cardiac exam demonstrates a rate which is irregularly irregular over 110. Abdomen is soft and non-tender. Extremities are normal. The dressing is dry. IMPRESSION: 1. Status post open reduction internal fixation of the left hip. 2. Atrial fibrillation with rapid ventricular response. 3. Congestive heart failure. 4. Previous right-sided cerebrovascular accident with left hemiparesis. 5. Elevated troponin. PLAN: Cardizem has been administered. Her pulse remains fairly high. She will be referred to Cardiology. A daughter called that yesterday her . He was not a patient of mine, but apparently he [facility] and had recently had a myocardial infarction and placement of a stent. He then developed COVID and wound up in a [facility] on a ventilator. Considering this patient's lack of stability, it was decided that she would not be told of her 's demise for another 24 hours. MMODL / IJN: [id number] /
[2021-09-19] MEDS: METOPROLOL TARTRATE 25 MG TAB PO SCH (19:49)
[2021-09-19] MEDS: SENNOSIDES-DOCUSATE SODIUM 1 EACH TAB PO SCH (19:50)
[2021-09-19] MEDS: ALBUTEROL NEBULIZED 2.5 MG/3 ML INHALATION SCH (20:06)
[2021-09-19 20:41] LABS: Glucose,Whole Blood 175 mg/dL (75-99)
[2021-09-20] MEDS ORDERED: DILTIAZEM 125 MG in SODIUM CHLORIDE 0.9% 100 ML IV SCH (02:45)
[2021-09-20] MEDS: HYDROcodone/APAP 5-325MG 1 EACH TAB PO PRN (03:31)
[2021-09-20 06:23] LABS: Glucose,Whole Blood 72 mg/dL (75-99)
[2021-09-20] MEDS: INSULIN ASPART (NovoLOG) 100 UNIT/ML VIAL SQ SCH ×3 (06:23→17:10)
[2021-09-20 07:52] LABS: Basophils % (A) 1 %; Eosinophils # (A) 0.3 k/uL (0-0.7); Eosinophils % (A) 3 %; HCT 32.4 % (34.0-46.0); HGB 9.6 gm/dL (11.4-16.0); Hypochromasia Marked; Lymphocytes # (A) 1.2 k/uL (1.0-4.8); Lymphocytes % (A) 13 %; MCH 27.8 pg (25.0-35.0); MCHC 29.7 g/dL (31.0-37.0); MCV 93.6 fL (80.0-100.0); Mean Platelet Volume 8.3; Monocytes % (A) 10 %; Neutrophils % (A) 73 %; Platelet Count 298 k/uL (150-450); Poikilocytosis Slight; RBC 3.46 m/uL (3.80-5.40); WBC 9.7 k/uL (3.8-10.6)
[2021-09-20] MEDS: ALBUTEROL NEBULIZED 2.5 MG/3 ML INHALATION SCH ×3 (08:20→20:28)
--- NOTE | 2021-09-20 08:49 | P.PN ---
Progress Note - Text Progress Note Date: 09/20/21 Orthopedics: History of present illness: Patient is a very pleasant 81-year-old female who is seen and examined at bedside for follow up evaluation of her left hip. She is status post left closed reduction and intramedullary nailing of the left hip performed by Dr. Christiano Stock on 09/18/2021. Patient does continue to have some pain at her left hip. Patient states she does have chronic weakness with her left lower extremity which has been ongoing over the past 16 years following a CVA with left-sided hemiparesis. She has chronic difficulty with active range of motion of her left lower extremity. She usually uses a wheelchair to aid in ambulation. She is able to wiggle her toes at the bedside today. Currently her left hip pain is actively controlled. She is currently being seen and examined by general surgery for upper GI bleed. She is currently scheduled for EGD testing today. She currently being seen by cardiology who is planning for bedside testing this morning. Patient has no other complaints at the bedside. She is currently nothing by mouth status. Physical Exam: Status post surgical day number 2 Patient is examined lying in bed Patient is awake and alert, and oriented 3 Vital signs stable Adequate chest excursion with deep inspiration and expiration; patient currently on O2 nasal cannula No signs or symptoms of DVT; no calf pain Lower extremity cuffs not currently in place bilaterally Dressing of the hip is clean, dry, and intact; no erythema, purulence, or signs of infection No pain with palpation over the surgical sites Patient has significant difficulty with any active range of motion of the left lower extremity, which the patient states is chronic over the past 16 years Patient is able to wiggle toes of the left lower extremity independently Neurovascularly intact left lower extremity Assessment: Status post closed reduction left intramedullary nailing for left intertrochanteric hip fracture Status post fall Left hip pain Chronic left lower extremity weakness Upper GI bleed Atrial fibrillation with rapid ventricular response History of CVA with resulted left-sided hemiparesis Diabetes mellitus Hypertension Hyperlipidemia History of liver disease History of thyroid disorder Plan: 1. Patient to remain toe-touch weightbearing on the left lower extremity with the assistance of a walker; patient may work with physical therapy to increase mobility and ambulation 2. Keep dressing over the left hip clean, dry, and intact 3. Continue pain control with oral Silt and IV Dilaudid as needed for pain control 4. Continue with anticoagulation therapy with Lovenox; will defer anticoagulation to internal medicine 5. Medicine, general surgery, and cardiology to continue following the patient for their other medical diagnosis 6. We'll continue to follow the patient closely; patient may need discharge to a rehabilitation facility at the time of discharge 7. Patient can follow-up with Dr. Christiano Stock at [facility] in 2-3 weeks following discharge
[2021-09-20] MEDS ORDERED: DEXTROSE 5% IN WATER 100 ML with AMIODARONE 150 MG IV ONE (09:00)
[2021-09-20] MEDS ORDERED: AMIODARONE 360 MG in DEXTROSE 5% IN WATER 200 ML IV ONE ×2 (09:20)
--- NOTE | 2021-09-20 10:42 | P.CRDCN ---
History of Present Illness History of present illness: HISTORY OF PRESENTING ILLNESS This is a pleasant 81-year-old female past medical history significant for rheumatic fever, CVA 16 years ago and states she was started on Coumadin (she denies every being told of an arrythmia or atrial fibrillation), hypothyroidism, dyslipidemia, hypertension. She does not follow with a physician credentialing specialist. We have been asked to see in consultation for atrial fibrillation with RVR. Patient presented to the ER [facility], she apparently slipped out of bed. She presented with left hip pain. Xray revealed acute intertrochanteric fracture left femur. She underwent close reduction and intramedullarly nailing left hip on 09/18/21. She also had episodes of coffee ground emesis, surgery was consulted. And plan for EGD today. She denies any history of CAD, IA, diabetes, atrial fibrillation or atrial flutter. Patient seen and examined at bedside, no distress. She denies any chest pain, shortness of breath, palpitations, lightheadedness or dizziness. Patient was in atrial fibrillation with rapid ventricular response yesterday, she was started on IV Cardizem, she converted to sinus rhythm around 4PM on 09/19. Overnight patient went back into each fibrillation with rapid ventricular response heart rate in the [id number]. Patient is currently asymptomatic. She states her left hip pain is controlled DIAGNOSTICS EKG initially on admission revealed sinus rhythm, heart rate 70, nonspecific ST-T-wave abnormalities Repeat EKG revealed atrial fibrillation with rapid ventricular response Chest xray Hyperinflation, heart is mildly enlarged. Worsening bilateral lower lung airspace opacities Laboratory reviewed, troponin negative, proBNP 14,600, WBC 9.7, hemoglobin 9.6, platelets 298 Current home cardiac medications include Coumadin, simvastatin 20 mg daily, metoprolol titrate 25 mg twice a day, benazepril 5 mg daily, aspirin 81 mg daily REVIEW OF SYSTEMS At the time of my exam: CONSTITUTIONAL: Denies fever or chills. CARDIOVASCULAR: Denies chest pain, shortness of breath, orthopnea, PND or palpitations. RESPIRATORY: Denies cough. GASTROINTESTINAL: Denies abdominal pain, diarrhea, constipation, nausea or vomiting. MUSCULOSKELETAL: Denies myalgias. NEUROLOGIC: Denies numbness, tingling, headacbe or weakness. ENDOCRINE: Denies fatigue, weight change, polydipsia or polyurina. GENITOURINARY: Denies burning, hematuria or urgency with micturation. HEMATOLOGIC: Denies history of anemia or bleeding. PHYSICAL EXAMINATION Blood pressure 136/56, heart rate 126, afebrile, saturations 98% on 2 L nasal cannula CONSTITUTIONAL: No apparent distress. HEENT: Head is normocephalic. Pupils are equal, round. Sclerae anicteric. Mucous membranes of the mouth are moist. No JVD. No carotid bruit. CHEST EXAMINATION: Lungs are diminished to auscultation. No chest wall tenderness is noted on palpation or with deep breathing. HEART EXAMINATION: Irregular tachycardic rate and rhythm. S1, S2 heard. Systolic ejection murmur at apex, no gallops or rub. ABDOMEN: Soft, nontender. Positive bowel sounds. EXTREMITIES: 2+ peripheral pulses, no lower extremity edema and no calf tenderness. NEUROLOGIC EXAMINATION: Patient is awake, alert and oriented x3. ASSESSMENT Paroxysmal atrial fibrillation with RVR Acute intertrochanteric fracture left femur s/p close reduction and intramedullarly nailing left hip on 09/18/21 Reports of coffee ground emesis Acute on chronic kidney disease Hypothyroidism Dyslipidemia Hypertension History of rheumatic fever History of CVA 16 years ago and started on Coumadin at that time PLAN Start IV amiodarone 150mg bolus and drip Stop Cardizem Continue metoprolol tartrate 25mg BID Coumadin on hold secondary to EGD and coffee ground emesis and recent orthopedic surgery, recommend restarting anticoagulation pending clearance from Surgery. Ok to restart from Orthopedics. Patient could be evaluated for Eliquis coverage Obtain 2D echocardiogram and doppler study to assess cardiac structure and func tion. Further recommendations based on clinical course Nurse practitioner note has been reviewed by physician. Signing provider agrees with the documented findings, assessment, and plan of care. 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 "recent ultrasound showed something on my kidney" History of Any Multi-Drug Resistant Organisms: None Reported Past Surgical History: Adenoidectomy, Appendectomy, Cholecystectomy, Hysterectomy, Orthopedic Surgery, Tonsillectomy Additional Past Surgical History / Comment(s): mona cataract surgery, bilateral knee surgeries, Past Anesthesia/Blood Transfusion Reactions: No Reported Reaction Past Psychological History: No Psychological Hx Reported Smoking Status: Former smoker Past Alcohol Use History: None Reported Additional Past Alcohol Use History / Comment(s): quit smoking 2015, smoked since age 18 Past Drug Use History: None Reported - Past Family History Mother Family Medical History: Diabetes Mellitus Son(s) Family Medical History: Cancer Additional Family Medical History / Comment(s): brain tumor Medications and Allergies Home Medications Medication Instructions Recorded Confirmed Type Aspirin 81 mg PO DAILY 06/11/15 09/14/21 History Benazepril [Lotensin] 5 mg PO DAILY 06/11/15 09/14/21 History Metoprolol Tartrate 25 mg PO BID 06/11/15 09/14/21 History Oxybutynin Chloride 5 mg PO BID 06/11/15 09/14/21 History Simvastatin [Zocor] 20 mg PO DAILY 06/11/15 09/14/21 History Warfarin Sodium 4 mg PO Q48H 06/11/15 09/14/21 History Glimepiride [Amaryl] 4 mg PO BID 09/14/21 09/14/21 History Levothyroxine Sodium [Synthroid] 75 mcg PO DAILY 09/14/21 09/14/21 History Warfarin [Coumadin] 3 mg PO Q48H 09/14/21 09/14/21 History Allergies Allergy/AdvReac Type Severity Reaction Status Date / Time No Known Allergies Allergy Verified 09/14/21 20:31 Physical Exam Vitals: Vital Signs Temp Pulse Resp BP Pulse Ox 09/19/21 11:38 90 L 09/19/21 11:13 93 L 09/19/21 11:11 121 H 16 92/64 94 L 09/19/21 09:03 94 L 09/19/21 09:00 98.0 F 139 H 20 125/71 95 09/19/21 04:00 98.1 F 126 H 16 106/69 95 09/18/21 23:40 97.9 F 128 H 16 110/60 93 L 09/18/21 21:39 99/64 09/18/21 20:00 98.4 F 129 H 16 90/64 95 09/18/21 16:00 136 H 18 132/62 94 L Intake and Output 06/09/0409/19/21 09/19/21 22:59 06:59 14:59 Intake Total 270 240 Output Total 175 325 Balance 95 -85 Intake: Oral 270 240 Output: Urine 175 325 Other: Voiding Method Indwelling Catheter Indwelling Catheter Indwelling Catheter Results 09/20/21 07:17 09/16/21 08:18 Cardiac Enzymes 09/19/21 Range/Units 12:08 Troponin I 0.045 H* (0.000-0.034) ng/mL CBC 09/19/21 Range/Units 12:08 WBC 11.6 H (3.8-10.6) k/uL RBC 3.65 L (3.80-5.40) m/uL Hgb 10.1 L (11.4-16.0) gm/dL Hct 34.5 (34.0-46.0) % Plt Count 309 (150-450) k/uL Current Medications Generic Name Dose Route Start Last Admin Trade Name Freq PRN Reason Stop Dose Admin Acetaminophen 650 mg 09/14/21 22:28 09/19/21 01:47 Acetaminophen Tab 325 Mg Tab PO 650 mg Q6HR PRN Administration Mild Pain or Fever > 100.5 Hydrocodone Bitart/Acetaminophen 1 each 09/18/21 10:27 Hydrocodone/Apap 5-325mg 1 Each Tab PO Q6HR PRN Pain Al Hydroxide/Mg Hydroxide 30 ml 09/17/21 13:00 09/19/21 12:37 Mag Hydrox/Al Hydrox/Simeth 30 Ml Cup PO Not Given QID [facility] Enoxaparin Sodium 40 mg 09/19/21 09:00 09/19/21 09:13 Enoxaparin 40 Mg/0.4 Ml Syringe SQ 40 mg DAILY NETTIE Administration Hydromorphone HCl 0.125 mg 09/18/21 10:27 Hydromorphone 0.5 Mg/0.5 Ml Syringe IVP Q3HR PRN Pain Scale 1 to 3 Hydromorphone HCl 0.25 mg 09/18/21 10:27 Hydromorphone 0.5 Mg/0.5 Ml Syringe IVP Q3HR PRN Pain Scale 4 to 6 Hydromorphone HCl 0.5 mg 09/18/21 10:27 Hydromorphone 0.5 Mg/0.5 Ml Syringe IVP Q3HR PRN Pain Scale 7 to 10 Lactated Ringer's 1,000 mls @ 20 mls/hr 09/18/21 09:55 09/19/21 09:14 Lactated Ringers IV Not Given .Q24H NETTIE Sodium Chloride 1,000 mls @ 100 mls/hr 09/18/21 10:30 09/19/21 09:06 Saline 0.9% IV Not Given .Q10H NETTIE Diltiazem HCl 125 mg/ Sodium 125 mls @ 5 mls/hr 09/18/21 17:45 09/18/21 18:10 Chloride IV 5 mg/hr .Q24H NETTIE 5 mls/hr Administration 5 MG/HR Insulin Aspart 0 unit 09/17/21 17:30 09/19/21 12:37 Insulin Aspart (Novolog) 100 Unit/Ml Vial SQ 3 unit AC-TID NETTIE Administration Protocol Levothyroxine Sodium 75 mcg 09/15/21 06:30 09/19/21 06:50 Levothyroxine 75 Mcg Tab PO 75 mcg DAILY@0630 NETTIE Administration Lisinopril 20 mg 09/17/21 12:45 09/19/21 09:13 Lisinopril 20 Mg Tab PO 20 mg DAILY NETTIE Administration Magnesium Hydroxide 2,400 mg 09/18/21 10:27 Magnesium Hydroxide 2,400 Mg/10 Ml Cup PO DAILY PRN Constipation Metoclopramide HCl 5 mg 09/17/21 12:47 Metoclopramide 5 Mg/Ml 2 Ml Vial IVP Q6HR PRN Nausea And Vomiting Metoprolol Tartrate 25 mg 09/19/21 21:00 Metoprolol Tartrate 25 Mg Tab PO BID [facility] Naloxone HCl 0.2 mg 09/18/21 10:27 Naloxone 0.4 Mg/Ml 1 Ml Vial IV Q2M PRN Opioid Reversal Ondansetron HCl 4 mg 09/16/21 01:13 09/16/21 19:53 Ondansetron 4 Mg/2 Ml Vial IVP 4 mg Q6HR PRN Administration Nausea And Vomiting Oxybutynin Chloride 5 mg 09/15/21 09:00 09/19/21 09:13 Oxybutynin Chloride 5 Mg Tab PO 5 mg BID NETTIE Administration Pantoprazole Sodium 40 mg 09/18/21 21:00 09/19/21 09:13 Pantoprazole 40 Mg Tablet PO 40 mg BID NETTIE Administration Senna/Docusate Sodium 2 each 09/18/21 21:00 09/18/21 19:56 Sennosides-Docusate Sodium 1 Each Tab PO 2 each HS NETTIE Administration Intake and Output 09/18/21 09/19/21 09/19/21 22:59 06:59 14:59 Intake Total 270 240 Output Total 175 325 Balance 95 -85 Intake: Oral 270 240 Output: Urine 175 325 Other: Voiding Method Indwelling Catheter Indwelling Catheter Indwelling Catheter 09/19/21 12:08 09/16/21 08:18
[2021-09-20 11:29] LABS: African American GFR (CKD) 56 (>60 ml/min/1.73 sqM); Anion Gap 3 mmol/L; Blood Urea Nitrogen 20 mg/dL (7-17); Calcium 8.2 mg/dL (8.4-10.2); Carbon Dioxide 28 mmol/L (22-30); Chloride 108 mmol/L (98-107); Glucose 116 mg/dL (74-99); Non-African American GFR(CKD) 49 (>60 ml/min/1.73 sqM); Sodium 139 mmol/L (137-145)
--- NOTE | 2021-09-20 11:32 | CA ---
Transthoracic Echo Report Name: Phoebe Matamoros Age: 81 Gender: F : 1940 Exam Date: 09/20/2021 07:51 Exam Location: [facility] Ht (in): 62 Wt (lb): 162 Ordering Physician: Sonia Loza Attending/Referring Phys: Yoga Teacher Rosana Guillen RDCS Procedure CPT: Indications: a fib Cardiac Hx: Hx of stroke, rhuematic fever, murmur,htn,chol and diabetes Technical Quality: Good Contrast 1: Total Dose (mL): Contrast 2: Total Dose (mL): MEASUREMENTS (Male / Female) Normal Values 2D ECHO LV Diastolic Diameter PLAX 2.1 cm 4.2 - 5.9 / 3.9 - 5.3 cm LV Systolic Diameter PLAX 1.0 cm IVS Diastolic Thickness 1.1 cm 0.6 - 1.0 / 0.6 - 0.9 cm LVPW Diastolic Thickness 1.1 cm 0.6 - 1.0 / 0.6 - 0.9 cm LV Relative Wall Thickness 1.0 RV Internal Dim ED PLAX 3.3 cm LA Volume 50.9 cm??? 18 - 58 / 22 - 52 cm??? M-MODE Aortic Root Diameter MM 3.0 cm LA Systolic Diameter MM 3.0 cm LA Ao Ratio MM 1.0 MV E Point Septal Separation 0.9 cm AV Cusp Separation MM 1.1 cm DOPPLER AV Peak Velocity 114.3 cm/s AV Peak Gradient 5.2 mmHg MR Peak Velocity 98.2 cm/s MR Peak Gradient 3.9 mmHg TR Peak Velocity 124.7 cm/s TR Peak Gradient 6.2 mmHg Right Ventricular Systolic Press 20.7 mmHg PV Peak Velocity 113.0 cm/s PV Peak Gradient 5.1 mmHg PI Peak Gradient 23.6 mmHg FINDINGS Left Ventricle Pt in Afib. Normal Left ventricular size, wall thickness, systolic function with no obvious regional wall motion abnormalities. Normal Left ventricular diastolic filling pattern. Left ventricular ejection fraction is estimated at 55-60_ %. Right Ventricle The right ventricle is normal in size and function. Right Atrium The right atrium is normal in size. Left Atrium The left atrium is normal in size. Mitral Valve Structurally normal mitral valve without significant stenosis or prolapse. There is mild mitral regurgitation. Mitral valve thickened. Aortic Valve Structurally normal aortic valve without significant sclerosis or stenosis. There is no aortic regurgitation. Tricuspid Valve Structurally normal tricuspid valve without significant stenosis. Pulmonary artery systolic pressure is normal. Mild tricuspid regurgitation. Pulmonic Valve Structurally normal pulmonic valve without significant stenosis. There is mild pulmonic regurgitation. Pericardium Normal pericardium without effusion. Echo free space anterior to the right ventricle likely represents a fat pad. Aorta Normal aortic root dimension. CONCLUSIONS #1. Normal left ventricle size and function. #2 patient is in A. fib with RVR #3. Normal valvular function Previewed by: Dr. Nellie Vance MD (Electronically Signed) Final Date: 20 September 2021 11:31
[2021-09-20 11:36] LABS: Glucose,Whole Blood 136 mg/dL (75-99)
--- NOTE | 2021-09-20 11:49 | XR ---
EXAMINATION TYPE: XR chest 1V portable DATE OF EXAM: 09/20/2021 COMPARISON: 09/19/2021. HISTORY: Shortness of breath TECHNIQUE: Single frontal view of the chest is obtained. FINDINGS: Heart upper limits of normal in size. Hyperinflation. Interstitial prominence persists. St able bilateral lower lung airspace opacities. Atherosclerotic change aorta. IMPRESSION: Stable bilateral infiltrates. Follow resolution to exclude underlying neoplasm.
[2021-09-20] MEDS: MAG HYDROX/AL HYDROX/SIMETH 30 ML CUP PO SCH ×5 (11:56→21:09)
[2021-09-20] MEDS: OXYBUTYNIN CHLORIDE 5 MG TAB PO SCH ×2 (12:11→19:52)
[2021-09-20] MEDS: METOPROLOL TARTRATE 25 MG TAB PO SCH ×2 (12:11→19:52)
[2021-09-20] MEDS: LEVOTHYROXINE 75 MCG TAB PO SCH (12:11)
[2021-09-20] MEDS: PANTOPRAZOLE 40 MG TABLET PO SCH ×2 (12:11→19:52)
[2021-09-20] MEDS: lisinopriL 20 MG TAB PO SCH (12:12)
[2021-09-20] MEDS: ENOXAPARIN 40 MG/0.4 ML SYRINGE SQ SCH (12:12)
[2021-09-20 12:18] LABS: Potassium 4.2 mmol/L (3.5-5.1)
[2021-09-20] MEDS: SULFAMETHOX-TMP 800-160MG 1 EACH TAB PO SCH ×2 (12:23→19:52)
--- NOTE | 2021-09-20 12:40 | P.PN ---
Subjective Progress Note Date: 09/20/21 CHIEF COMPLAINT: Upper GI bleed HISTORY OF PRESENT ILLNESS: Surgical service is following in regards to helen elias's upper GI bleed. Patient has had no further episode of coffee-ground emesis. She denies any nausea or vomiting. Denies any abdominal pain. Hemoglobin has gone down from 10.1-9.6. Patient has been in atrial fibrillation with rapid ventricular response they have added an amiodarone drip today. Patient followed by cardiology. Afebrile heart rate 129 PHYSICAL EXAM: VITAL SIGNS: Reviewed. GENERAL: Well-developed in no acute distress. HEENT: No sclera icterus. Extraocular movements grossly intact. Moist buccal mucosa. Head is atraumatic, normocephalic. ABDOMEN: Soft. Nondistended. Nontender. NEUROLOGIC: Alert and oriented. Cranial nerves II through XII grossly intact. ASSESSMENT: 1. Upper GI bleed with coffee-ground emesis. Now resolved. 2. Atrial fibrillation with rapid ventricular response. Followed by cardiology 3. Left hip fracture status post orthopedic intervention PLAN: -We will hold off on EGD today due to atrial fibrillation with rapid ventricular response. Patient will need an EGD when medically stable. -Start patient on heart healthy carbohydrate consistent diet -continue PPI -Continue to hold Coumadin -Continue to monitor hemoglobin -Continue to monitor for any signs or symptoms of bleeding Physician Wire Frame Lampshade Maker note has been reviewed by physician. Signing provider agrees with the documented findings, assessment, and plan of care. I have personally seen and examined the patient, reviewed the SHAKER TENDER /PAs history, exam and MDM and agree with the assessment and plan as written. Based on total visit time, I have performed more than 50% of the visit. As above: Patient doing better today. Her pain is improved. Hemoglobin 9.6. She has not had a bowel movement since her fall. Son was present at the bedside. We discussed options of endoscopy with both of them. If melanotic stools noted would recommend EGD this admission. If stool is brown and no further symptoms patient would like to hold off on EGD and I think that is reasonable. Continue antiacids for now. Will follow. Objective - Vital Signs Vital signs: Vital Signs Temp 98.9 F 09/20/21 11:42 Pulse 76 09/20/21 11:49 Resp 20 09/20/21 11:42 BP 115/69 09/20/21 11:42 Pulse Ox 94 L 09/20/21 11:42 FiO2 Intake & Output 09/19/21 09/20/21 09/20/21 18:59 06:59 18:59 Intake Total 720 Output Total 300 1700 250 Balance 420 -1700 -250 Intake: Oral 720 Output: Urine 300 1700 250 Other: Voiding Method Indwelling Catheter External Catheter External Catheter - Labs CBC & Chem 7: 09/20/21 07:17 09/20/21 10:50 Labs: Abnormal Lab Results - Last 24 Hours (Table) 09/19/21 09/19/21 09/19/21 Range/Units 12:08 16:44 20:34 RBC (3.80-5.40) m/uL Hgb (11.4-16.0) gm/dL Hct (34.0-46.0) % MCHC (31.0-37.0) g/dL RDW (11.5-15.5) % Chloride (98-107) mmol/L BUN (7-17) mg/dL Creatinine (0.52-1.04) mg/dL Glucose (74-99) mg/dL POC Glucose (mg/dL) 182 H 175 H (75-99) mg/dL Calcium (8.4-10.2) mg/dL Troponin I 0.045 H* (0.000-0.034) ng/mL 09/20/21 09/20/21 09/20/21 Range/Units 06:21 07:17 10:50 RBC 3.46 L (3.80-5.40) m/uL Hgb 9.6 L (11.4-16.0) gm/dL Hct 32.4 L (34.0-46.0) % MCHC 29.7 L (31.0-37.0) g/dL RDW 16.0 H (11.5-15.5) % Chloride 108 H (98-107) mmol/L BUN 20 H (7-17) mg/dL Creatinine 1.09 H (0.52-1.04) mg/dL Glucose 116 H (74-99) mg/dL POC Glucose (mg/dL) 72 L (75-99) mg/dL Calcium 8.2 L (8.4-10.2) mg/dL Troponin I (0.000-0.034) ng/mL 09/20/21 Range/Units 11:34 RBC (3.80-5.40) m/uL Hgb (11.4-16.0) gm/dL Hct (34.0-46.0) % MCHC (31.0-37.0) g/dL RDW (11.5-15.5) % Chloride (98-107) mmol/L BUN (7-17) mg/dL Creatinine (0.52-1.04) mg/dL Glucose (74-99) mg/dL POC Glucose (mg/dL) 136 H (75-99) mg/dL Calcium (8.4-10.2) mg/dL Troponin I (0.000-0.034) ng/mL Microbiology - Last 24 Hours (Table) 09/18/21 10:55 Urine Culture - Final Urine,Voided Enterobacter cloacae
[2021-09-20 14:21] VITALS: BMI 28.5
[2021-09-20] MEDS: AMIODARONE 450 MG in DEXTROSE 5% IN WATER 250 ML IV SCH ×2 (16:19)
[2021-09-20] MEDS: LACTATED RINGERS 1,000 ML IV SCH (16:25)
[2021-09-20 16:34] LABS: Glucose,Whole Blood 135 mg/dL (75-99)
[2021-09-20] MEDS: SENNOSIDES-DOCUSATE SODIUM 1 EACH TAB PO SCH (19:52)
[2021-09-20 19:57] LABS: Glucose,Whole Blood 170 mg/dL (75-99)
--- NOTE | 2021-09-20 20:48 | MISC ---
MISCELLANOUS REPORT QUERY: Atrial fibrillation, chronic. MMODL / IJN: [id number] /
--- NOTE | 2021-09-20 20:48 | PN ---
PROGRESS NOTE DATE OF SERVICE: 09/20/2021 CHIEF COMPLAINT: Status post left hip fracture and congestive heart failure. HISTORY OF PRESENT ILLNESS: This lady is doing much better. Pulse is slowed down. Her breathing is better. She remains wide awake, oriented and alert and not in a great deal of pain. PHYSICAL EXAMINATION: Breath sounds are clear bilaterally when heard while she is lying in bed. She still has tachycardia. Abdomen is soft, nontender. IMPRESSION: 1. Status post left hip fracture. 2. Acute congestive heart failure. 3. Atrial fibrillation. 4. Previous cerebrovascular accident. PLAN: Continue with diuresis and continue to monitor her heart failure and start to work on a discharge plan. MMODL / IJN: [id number] /
[2021-09-21 05:50] LABS: Glucose,Whole Blood 90 mg/dL (75-99)
[2021-09-21] MEDS: LEVOTHYROXINE 75 MCG TAB PO SCH (05:52)
[2021-09-21] MEDS: INSULIN ASPART (NovoLOG) 100 UNIT/ML VIAL SQ SCH ×3 (06:03→17:04)
--- NOTE | 2021-09-21 08:03 | P.PN ---
Subjective Progress Note Date: 09/21/21 Principal diagnosis: Intertrochanteric fracture left hip. Acute GI bleed. Atrial fibrillation with RVR. This is a 81-year-old female who was admitted to [facility] on 09/15/2021 after falling and sustaining injury to her left hip. The next evening she had multiple episodes of vomiting with coffee-ground emesis. Surgery was held secondary to GI bleed. She did end up going to surgery on 09/18/2021 for close reduction with insertion of intertrochanteric nail of the left hip. 09/21/2021: Today is postoperative day #3 status post closed reduction with insertion of intertrochanteric nail of the left hip. She remains inpatient on the Cardiac step down unit with a-fib w RVR. Orthopedically she is stable. Vital signs are stable. Objective - Vital Signs Vital signs: Vital Signs Temp 98.2 F 09/21/21 03:40 Pulse 53 L 09/21/21 03:40 Resp 18 09/21/21 03:40 BP 144/60 09/21/21 03:40 Pulse Ox 94 L 09/21/21 03:40 FiO2 Intake & Output 09/20/21 09/21/21 09/21/21 18:59 06:59 18:59 Intake Total 469.8 116.113 Output Total 250 500 Balance 219.8 -383.887 Weight 70.76 kg Intake: Intake, IV Titration 469.8 116.113 Amount Amiodarone 360 mg In 199.8 Dextrose 5% in Water 200 ml @ 1 MG/MIN 33.333 mls/ hr IV .Q6H [facility] Rx#: [id number] Amiodarone 450 mg In 116.113 Dextrose 5% in Water 250 ml @ 0.5 MG/MIN 16.667 mls/hr IV .Q15H [facility] Rx#: [id number] Dextrose 5% in Water 100 100 ml @ 618 mls/hr IV .Q10M [facility] with Amiodarone 150 mg Rx#:[id number] Diltiazem 125 mg In 10 Sodium Chloride 0.9% 100 ml @ 5 MG/HR 5 mls/hr IV .Q24H [facility] Rx#:[id number] Sodium Chloride 0.9% 1, 160 000 ml @ 100 mls/hr IV . Q10H [facility] Rx#:[id number] Output: Urine 250 500 Other: Voiding Method External Catheter External Catheter - Exam This is a pleasant 81-year-old female in no acute distress. She is alert and oriented to person and place. Exam of the Left hip reveals Serosanguineous drainage from the proximal incision. There is mild soft tissue swelling. She has full foot and ankle motion without difficulty or pain. Neurovascular status to the lower extremity is intact. - Labs CBC & Chem 7: 09/20/21 07:17 09/20/21 10:50 Labs: Abnormal Lab Results - Last 24 Hours (Table) 09/20/21 09/20/21 09/20/21 Range/Units 10:50 11:34 16:33 Chloride 108 H (98-107) mmol/L BUN 20 H (7-17) mg/dL Creatinine 1.09 H (0.52-1.04) mg/dL Glucose 116 H (74-99) mg/dL POC Glucose (mg/dL) 136 H 135 H (75-99) mg/dL Calcium 8.2 L (8.4-10.2) mg/dL 09/20/21 Range/Units 19:56 Chloride (98-107) mmol/L BUN (7-17) mg/dL Creatinine (0.52-1.04) mg/dL Glucose (74-99) mg/dL POC Glucose (mg/dL) 170 H (75-99) mg/dL Calcium (8.4-10.2) mg/dL Microbiology - Last 24 Hours (Table) 09/18/21 10:55 Urine Culture - Final Urine,Voided Enterobacter cloacae Assessment and Plan (1) Closed intertrochanteric fracture of left hip Current Visit: Yes Status: Acute Code(s): S72.142A - DISPLACED INTERTROCHANTERIC FRACTURE OF LEFT FEMUR, INIT SNOMED Code(s): 59800980 Plan: The clinical and x-ray findings are discussed with the patient. She is cleared from an orthopedic standpoint for discharge. We will transfer tending to internal medicine.
[2021-09-21] MEDS: AMIODARONE 450 MG in DEXTROSE 5% IN WATER 250 ML IV SCH ×2 (08:06)
[2021-09-21] MEDS: MAG HYDROX/AL HYDROX/SIMETH 30 ML CUP PO SCH ×4 (08:07→20:10)
[2021-09-21] MEDS: OXYBUTYNIN CHLORIDE 5 MG TAB PO SCH ×2 (08:11→20:02)
[2021-09-21] MEDS: METOPROLOL TARTRATE 25 MG TAB PO SCH ×2 (08:11→20:02)
[2021-09-21] MEDS: PANTOPRAZOLE 40 MG TABLET PO SCH ×2 (08:11→20:02)
[2021-09-21] MEDS: ENOXAPARIN 40 MG/0.4 ML SYRINGE SQ SCH (08:11)
[2021-09-21] MEDS: lisinopriL 20 MG TAB PO SCH (08:11)
[2021-09-21] MEDS: SULFAMETHOX-TMP 800-160MG 1 EACH TAB PO SCH ×2 (08:11→20:03)
[2021-09-21] MEDS: LACTATED RINGERS 1,000 ML IV SCH (08:12)
[2021-09-21] MEDS: ALBUTEROL NEBULIZED 2.5 MG/3 ML INHALATION SCH ×3 (08:21→19:12)
[2021-09-21 08:44] LABS: Anisocytosis Slight; HCT 32.6 % (34.0-46.0); Hypochromasia Marked; MCH 28.7 pg (25.0-35.0); MCHC 30.6 g/dL (31.0-37.0); MCV 93.8 fL (80.0-100.0); Mean Platelet Volume 8.6; Platelet Count 337 k/uL (150-450); Poikilocytosis Slight; RBC 3.48 m/uL (3.80-5.40); RDW 16.3 % (11.5-15.5)
[2021-09-21] MEDS: AMIODARONE 200 MG TAB PO SCH (08:46)
--- NOTE | 2021-09-21 11:18 | CDI ---
Documentation Clarification Form Date: 09/21/2021 10:49:25 AM From: Monika Hoffman RN, CCDS Admit Date: 09/14/2021 10:28:00 PM Patient Name: Phoebe Matamoros Visit Number: [id number] Discharge Date: ATTENTION: The Clinical Documentation Specialists (CDI) and [facility] Coding Staff appreciate your assistance in clarifying documentation. Please respond to the clarification below the line at the bottom and electronically sign. The CDI & [facility] Coding staff will review the response and follow-up if needed. Please note: Queries are made part of the Legal Health Record. If you have any questions, please contact the author of this message via ITS. Dr. Conner Warren Your patient has the documented diagnosis of unspecified acute CHF in your progress note on 09/20/21. Additional information regarding the type of CHF is requested. History/Risk Factors: Atrial fibrillation, CVA, Diabetes Mellitus, Hypertension Hypothyroidism , Dyslipidemia Clinical Indicators: 75-year-old female status post fall with left hip fracture with ORIF. 09/19 VS/Pulse OX: (11:11) 92/64 121 16 94 % 2/l NC 09/19 BNP: 98967, Troponin 0.045 09/20 Echocardiogram Results: Patient in Afib. Normal left ventricular size. Left ventricular ejection fraction is estimated at 55-60 %. Milt mitral regurgitation. 09/19 Chest X Ray: Worsening bilateral lower lung airspace opacities. 09/20 Chest X-ray: Stable bilateral infiltrates. Correlate for possible pneumonia. Treatment: Cardiac/Telemetry monitoring Lopressor 25 MG PO BID Lasix 40 MG IV Once (09/19) In your professional opinion, can you please clarify the type of acute CHF if known? [ ] Acute Diastolic Heart Failure (preserved EF) [ ] Other, please specify [ ] Unable to determine (Template Last Revised: May 2020) MTDD
[2021-09-21 11:42] LABS: Glucose,Whole Blood 169 mg/dL (75-99)
--- NOTE | 2021-09-21 11:47 | CDI ---
Documentation Clarification Form Date: 09/21/2021 11:23:31 AM From: Monika Hoffman RN, CCDS Admit Date: 09/14/2021 10:28:00 PM Patient Name: Phoebe Matamoros Visit Number: [id number] Discharge Date: ATTENTION: The Clinical Documentation Specialists (CDI) and [facility] Coding Staff appreciate your assistance in clarifying documentation. Please respond to the clarification below the line at the bottom and electronically sign. The CDI & [facility] Coding staff will review the response and follow-up if needed. Please note: Queries are made part of the Legal Health Record. If you have any questions, please contact the author of this message via ITS. Dr. Conner Warren Your patient has an abnormal lab value: urine final culture Enterobacter cloacae on , Please clarify if there is an additional diagnosis and/or clinical significance related to this value. History/Risk Factors: Atrial fibrillation, CVA, Diabetes Mellitus, Hypertension Hypothyroidism Dyslipidemia Clinical indicators: 81-year-old female present to ED with fall ruled in for closed left hip fracture. 09/18/21 UA: appearance Turbid, Urine Nitrite Positive, Ur Leukocyte esterase - Large, wbc >182; Urine culture Final: Enterobacter cloacae Treatment: Bactrim Ds 1 PO BID (09/20-09/21 Is there an additional diagnosis and/or clinical significance related to the above lab result/information? [ ] UTI with Enterobacter cloacae POA [ ] UA and urine culture, No additional diagnosis/Not clinically significant [ ] Other, please specify [ ] Unable to determine (Template Last Revised: May 2020) MTDD
--- NOTE | 2021-09-21 12:34 | P.PN ---
Subjective This is a pleasant 81-year-old female past medical history significant for rheumatic fever, CVA 16 years ago and states she was started on Coumadin (she denies every being told of an arrythmia or atrial fibrillation), hypothyroidism, dyslipidemia, hypertension. She does not follow with a mobile developer. We have been asked to see in consultation for atrial fibrillation with RVR. Patient presented to the ER 09/14/2021 with fall at longterm, she apparently slipped out of bed. She presented with left hip pain. Xray revealed acute intertrochanteric fracture left femur. She underwent close reduction and intramedullarly nailing left hip on 09/18/21. She also had episode of coffee ground emesis, surgery was consulted, was tentatively doing an EGD but held due to no further bleeding and brown stools, possibly being considered as outpatient. She denies any history of CAD, MT, diabetes, atrial fibrillation or atrial flutter. EKG initially on admission revealed sinus rhythm, heart rate 70, nonspecific ST-T-wave abnormalities Repeat EKG revealed atrial fibrillation with rapid ventricular response 09/20/2021 Patient was in atrial fibrillation with rapid ventricular response yesterday, she was started on IV Cardizem, she converted to sinus rhythm around 4PM on 09/19. Overnight patient went back into each fibrillation with rapid ventricular res ponse heart rate in the [id number]. Patient is currently asymptomatic. She states her left hip pain is controlled. She was started on IV Amiodarone and cardizem discontinued 09/21/2021 Patient seen and examined at bedside, no distress. She denies any chest pain, shortness of breath, palpitations, lightheadedness or dizziness. Denies any bleeding. She continues to be on IV amiodarone. Patient converted to sinus mechanism with heart rate in the 50s-60, 2 second pauses noted on telemetry. Echocardiogram revealed an EF of 5560%, no significant wall motion abnormalities. PHYSICAL EXAMINATION Blood pressure 155/58, heart rate 56, afebrile, oximetry 95% 2 L nasal cannula CONSTITUTIONAL: No apparent distress. HEENT: Neck Supple. No JVD. CHEST EXAMINATION: Lungs are diminished to auscultation. No chest wall tenderness is noted on palpation or with deep breathing. HEART EXAMINATION: Regular rate and rhythm. S1, S2 heard. Systolic ejection murmur at apex, no gallops or rub. ABDOMEN: Soft, nontender. Positive bowel sounds. EXTREMITIES: 2+ peripheral pulses, no lower extremity edema and no calf tenderness. NEUROLOGIC EXAMINATION: Patient is awake, alert and oriented x3. ASSESSMENT Paroxysmal atrial fibrillation with RVR [id number] score 6, maintaining sinus mechanism Acute intertrochanteric fracture left femur s/p close reduction and intramedullarly nailing left hip on 09/18/21 Report of coffee ground emesis Acute on chronic kidney disease Hypothyroidism Dyslipidemia Hypertension History of rheumatic fever History of CVA 16 years ago and started on Coumadin at that time PLAN Transition to PO amiodarone 200mg Daily Continue metoprolol tartrate 25mg BID Coumadin on hold secondary to EGD and coffee ground emesis and recent orthopedic surgery, recommend restarting anticoagulation. Ok to restart per Dr. Brown and Orthopedics. Recommend restarting coumadin Patient could be evaluated for Eliquis coverage From cardiology perspective, patient is stable. Please reach out with any further questions or concerns. Nurse practitioner note has been reviewed by physician. Signing provider agrees with the documented findings, assessment, and plan of care. Objective - Vital Signs Vital signs: Vital Signs Temp 99.2 F 09/21/21 11:31 Pulse 60 09/21/21 12:06 Resp 20 09/21/21 11:31 BP 155/58 09/21/21 11:31 Pulse Ox 95 09/21/21 11:31 FiO2 Intake & Output 09/20/21 09/21/21 09/21/21 18:59 06:59 18:59 Intake Total 469.8 116.113 360 Output Total 250 500 Balance 219.8 -383.887 360 Weight 70.76 kg Intake: Intake, IV Titration 469.8 116.113 Amount Amiodarone 360 mg In 199.8 Dextrose 5% in Water 200 ml @ 1 MG/MIN 33.333 mls/ hr IV .Q6H [facility] Rx#: [id number] Amiodarone 450 mg In 116.113 Dextrose 5% in Water 250 ml @ 0.5 MG/MIN 16.667 mls/hr IV .Q15H [facility] Rx#: [id number] Dextrose 5% in Water 100 100 ml @ 618 mls/hr IV .Q10M [facility] with Amiodarone 150 mg Rx#:[id number] Diltiazem 125 mg In 10 Sodium Chloride 0.9% 100 ml @ 5 MG/HR 5 mls/hr IV .Q24H [facility] Rx#:[id number] Sodium Chloride 0.9% 1, 160 000 ml @ 100 mls/hr IV . Q10H [facility] Rx#:[id number] Oral 360 Output: Urine 250 500 Other: Voiding Method External Catheter External Catheter External Catheter # Voids 1 - Labs CBC & Chem 7: 09/21/21 08:26 09/20/21 10:50 Labs: Abnormal Lab Results - Last 24 Hours (Table) 09/20/21 09/20/21 09/21/21 Range/Units 16:33 19:56 08:26 RBC 3.48 L (3.80-5.40) m/uL Hgb 10.0 L (11.4-16.0) gm/dL Hct 32.6 L (34.0-46.0) % MCHC 30.6 L (31.0-37.0) g/dL RDW 16.3 H (11.5-15.5) % POC Glucose (mg/dL) 135 H 170 H (75-99) mg/dL 09/21/21 Range/Units 11:41 RBC (3.80-5.40) m/uL Hgb (11.4-16.0) gm/dL Hct (34.0-46.0) % MCHC (31.0-37.0) g/dL RDW (11.5-15.5) % POC Glucose (mg/dL) 169 H (75-99) mg/dL Microbiology - Last 24 Hours (Table) 09/18/21 10:55 Urine Culture - Final Urine,Voided Enterobacter cloacae
--- NOTE | 2021-09-21 13:13 | P.PN ---
Subjective Progress Note Date: 09/21/21 CHIEF COMPLAINT: Upper GI bleed HISTORY OF PRESENT ILLNESS: Surgical service is following in regards to helen elias's upper GI bleed. Patient has had no further episode of coffee-ground emesis. She denies any nausea or vomiting. Denies any abdominal pain. Patient's hemoglobin has gone up from 9.6-10. She has converted from atrial fibrillation to sinus rhythm. She denies any bowel movements. She is having flatus. Afebrile. She has been cleared by orthopedics for discharge. PHYSICAL EXAM: VITAL SIGNS: Reviewed. GENERAL: Well-developed in no acute distress. HEENT: No sclera icterus. Extraocular movements grossly intact. Moist buccal mucosa. Head is atraumatic, normocephalic. ABDOMEN: Soft. Nondistended. Nontender. NEUROLOGIC: Alert and oriented. Cranial nerves II through XII grossly intact. ASSESSMENT: 1. Upper GI bleed with coffee-ground emesis. Now resolved. 2. Atrial fibrillation with rapid ventricular response. Followed by cardiology 3. Left hip fracture status post orthopedic intervention PLAN: -We will hold off on EGD unless patient starts to have melanotic stools. -continue PPI -Okay to resume Coumadin from surgical standpoint -Continue to monitor hemoglobin -Continue to monitor for any signs or symptoms of bleeding Physician Ballast Regulator Operator note has been reviewed by physician. Signing provider agrees with the documented findings, assessment, and plan of care. I have personally seen and examined the patient, reviewed the PROCUREMENT CONSULTANT /PAs history, exam and MDM and agree with the assessment and plan as written. Based on total visit time, I have performed more than 50% of the visit. As above: Patient without further issues. No nausea or vomiting. Tolerating d iet. No pain. No bowel movement yet. Continue diet. Continue antiacids. Will follow. Objective - Vital Signs Vital signs: Vital Signs Temp 99.2 F 09/21/21 11:31 Pulse 60 09/21/21 12:18 Resp 20 09/21/21 11:31 BP 155/58 09/21/21 11:31 Pulse Ox 95 09/21/21 11:31 FiO2 Intake & Output 09/20/21 09/21/21 09/21/21 18:59 06:59 18:59 Intake Total 469.8 116.113 360 Output Total 250 500 Balance 219.8 -383.887 360 Weight 70.76 kg Intake: Intake, IV Titration 469.8 116.113 Amount Amiodarone 360 mg In 199.8 Dextrose 5% in Water 200 ml @ 1 MG/MIN 33.333 mls/ hr IV .Q6H [facility] Rx#: [id number] Amiodarone 450 mg In 116.113 Dextrose 5% in Water 250 ml @ 0.5 MG/MIN 16.667 mls/hr IV .Q15H [facility] Rx#: [id number] Dextrose 5% in Water 100 100 ml @ 618 mls/hr IV .Q10M [facility] with Amiodarone 150 mg Rx#:[id number] Diltiazem 125 mg In 10 Sodium Chloride 0.9% 100 ml @ 5 MG/HR 5 mls/hr IV .Q24H [facility] Rx#:[id number] Sodium Chloride 0.9% 1, 160 000 ml @ 100 mls/hr IV . Q10H [facility] Rx#:[id number] Oral 360 Output: Urine 250 500 Other: Voiding Method External Catheter External Catheter External Catheter # Voids 1 - Labs CBC & Chem 7: 09/21/21 08:26 09/20/21 10:50 Labs: Abnormal Lab Results - Last 24 Hours (Table) 09/20/21 09/20/21 09/21/21 Range/Units 16:33 19:56 08:26 RBC 3.48 L (3.80-5.40) m/uL Hgb 10.0 L (11.4-16.0) gm/dL Hct 32.6 L (34.0-46.0) % MCHC 30.6 L (31.0-37.0) g/dL RDW 16.3 H (11.5-15.5) % POC Glucose (mg/dL) 135 H 170 H (75-99) mg/dL 09/21/21 Range/Units 11:41 RBC (3.80-5.40) m/uL Hgb (11.4-16.0) gm/dL Hct (34.0-46.0) % MCHC (31.0-37.0) g/dL RDW (11.5-15.5) % POC Glucose (mg/dL) 169 H (75-99) mg/dL Microbiology - Last 24 Hours (Table) 09/18/21 10:55 Urine Culture - Final Urine,Voided Enterobacter cloacae
[2021-09-21 13:17] LABS: INR 1.1 (<1.2); Prothrombin Time 11.6 sec (9.0-12.0)
[2021-09-21] MEDS: HYDROcodone/APAP 5-325MG 1 EACH TAB PO PRN (13:18)
--- NOTE | 2021-09-21 14:43 | PN ---
PROGRESS NOTE CHIEF COMPLAINT: Fracture left hip. HISTORY OF PRESENT ILLNESS: This lady is doing well. Heart failure seems to be under better control. She is less short of breath. She was told about the recent demise of her . REVIEW OF SYSTEMS: She has no complaints. PHYSICAL EXAMINATION: Blood pressure is 155/58 with a pulse of 60 now. Temperature is 99.2. Chest is clear. Cardiac exam is unchanged. Abdomen is soft and nontender. IMPRESSION: 1. Status post status post ORIF of left hip. 2. Congestive heart failure. 3. Previous right-sided cerebrovascular accident. PLAN: 1. Continue to increase activity. 2. Repeat EKG, to ensure that she is in sinus rhythm. 3. Await for discharge to care home soon. MMODL / IJN: [id number] /
[2021-09-21 16:40] LABS: Glucose,Whole Blood 150 mg/dL (75-99)
[2021-09-21] MEDS ORDERED: WARFARIN 2 MG TAB PO ONE (18:00)
[2021-09-21 19:44] LABS: Glucose,Whole Blood 182 mg/dL (75-99)
[2021-09-21] MEDS: SENNOSIDES-DOCUSATE SODIUM 1 EACH TAB PO SCH (20:03)
[2021-09-22 05:36] LABS: Glucose,Whole Blood 112 mg/dL (75-99)
[2021-09-22] MEDS: INSULIN ASPART (NovoLOG) 100 UNIT/ML VIAL SQ SCH ×2 (05:37→12:07)
[2021-09-22] MEDS: LEVOTHYROXINE 75 MCG TAB PO SCH (05:41)
[2021-09-22] MEDS: ENOXAPARIN 40 MG/0.4 ML SYRINGE SQ SCH (08:26)
[2021-09-22] MEDS: MAG HYDROX/AL HYDROX/SIMETH 30 ML CUP PO SCH ×2 (08:26→11:59)
[2021-09-22] MEDS: SULFAMETHOX-TMP 800-160MG 1 EACH TAB PO SCH (08:27)
[2021-09-22] MEDS: lisinopriL 20 MG TAB PO SCH (08:27)
[2021-09-22] MEDS: METOPROLOL TARTRATE 25 MG TAB PO SCH (08:27)
[2021-09-22] MEDS: OXYBUTYNIN CHLORIDE 5 MG TAB PO SCH (08:28)
[2021-09-22] MEDS: AMIODARONE 200 MG TAB PO SCH (08:28)
[2021-09-22] MEDS: PANTOPRAZOLE 40 MG TABLET PO SCH (08:28)
[2021-09-22] MEDS: ALBUTEROL NEBULIZED 2.5 MG/3 ML INHALATION SCH ×2 (08:55→11:46)
--- NOTE | 2021-09-22 11:37 | P.PN ---
Subjective Progress Note Date: 09/22/21 CHIEF COMPLAINT: Upper GI bleed HISTORY OF PRESENT ILLNESS: Surgical service is following in regards to helen elias's upper GI bleed. Patient has had no further episode of coffee-ground emesis. She denies any nausea or vomiting. Denies any abdominal pain. Patient was restarted on her Coumadin yesterday for her atrial fibrillation. Patient reports having flatus. Denies bowel movement. Afebrile. Last hemoglobin 10. Possible discharge to [facility] later today. PHYSICAL EXAM: VITAL SIGNS: Reviewed. GENERAL: Well-developed in no acute distress. HEENT: No sclera icterus. Extraocular movements grossly intact. Moist buccal mucosa. Head is atraumatic, normocephalic. ABDOMEN: Soft. Nondistended. Nontender. NEUROLOGIC: Alert and oriented. Cranial nerves II through XII grossly intact. ASSESSMENT: 1. Upper GI bleed with 1 episode of coffee-ground emesis. Now resolved. 2. Atrial fibrillation with rapid ventricular response. Followed by cardiology 3. Left hip fracture status post orthopedic intervention PLAN: -Patient can be discharged from surgical standpoint when medically stable -Continue PPI -No plans for EGD at this time Physician Corporate Associate note has been reviewed by physician. Signing provider agrees with the documented findings, assessment, and plan of care. I have personally seen and examined the patient, reviewed the PHOTO MACHINE OPERATOR /PAs history, exam and MDM and agree with the assessment and plan as written. Based on total visit time, I have performed more than 50% of the visit. As above: Patient doing well today. No pain. Tolerating diet. No bowel movement. Plan for transfer to rehab today. Objective - Vital Signs Vital signs: Vital Signs Temp 97.4 F L 09/22/21 08:10 Pulse 62 09/22/21 08:55 Resp 16 09/22/21 08:10 BP 157/50 09/22/21 08:10 Pulse Ox 92 L 09/22/21 08:10 FiO2 Intake & Output 09/21/21 09/22/21 09/22/21 18:59 06:59 18:59 Intake Total 880 200 660 Output Total 300 Balance 880 200 360 Intake: Intake, IV Titration 160 Amount Sodium Chloride 0.9% 1, 160 000 ml @ 0 mls/hr IV .[facility] Rx#:[id number] Oral 720 200 660 Output: Urine 300 Other: Voiding Method External Catheter External Catheter External Catheter # Voids 1 1 1 - Labs CBC & Chem 7: 09/21/21 08:26 09/22/21 10:22 Labs: Abnormal Lab Results - Last 24 Hours (Table) 09/21/21 09/21/21 09/21/21 Range/Units 11:41 16:39 19:43 POC Glucose (mg/dL) 169 H 150 H 182 H (75-99) mg/dL 09/22/21 Range/Units 05:34 POC Glucose (mg/dL) 112 H (75-99) mg/dL
[2021-09-22 11:38] LABS: Glucose,Whole Blood 144 mg/dL (75-99)
[2021-09-22 11:41] LABS: Calcium 8.6 mg/dL (8.4-10.2); Magnesium 2.1 mg/dL (1.6-2.3); Potassium 4.9 mmol/L (3.5-5.1)
[2021-09-22 12:05] VITALS: RESP 17
[2021-09-22] MEDS: ACETAMINOPHEN TAB 325 MG TAB PO PRN (12:07)
[2021-09-22] MEDS: LACTATED RINGERS 1,000 ML IV SCH (12:11)
--- NOTE | 2021-09-22 12:11 | DS ---
DISCHARGE SUMMARY CHIEF COMPLAINT: Fracture of the left hip. HISTORY OF PRESENT ILLNESS AND PHYSICAL EXAMINATION: Details of this lady's history and physical can be found in the initial workup. LABORATORY STUDIES: While she was in the hospital she had laboratory studies, details of which can be found in the laboratory section of her chart. COURSE IN THE HOSPITAL: After admission she was placed on bedrest and started on intravenous fluids. Surgery was delayed for a day or two because she had coffee-grounds emesis, but her pulse, blood pressure and hemoglobin remained stable. She subsequently was taken to the operating room for ORIF. She had some difficulty after that with atrial fibrillation, rapid ventricular response and subsequent congestive heart failure. This was treated and her pulse was slowed. She had no further evidence of any coffee-grounds emesis. As she continued to improve, arrangements were made for her to go to a residential. While she was in the hospital her also , and she handled this well. It was felt that she could go to [facility] on October 22. FINAL DIAGNOSIS: 1. Fracture of the left hip. 2. 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 3. Supraventricular tachycardia. 4. Acute congestive heart failure. 5. Depression. OPERATION: ORIF of the left hip. CONSULTATIONS: 1. Orthopedic Surgery. 2. Cardiology. MMODL / IJN: [id number] /
[2021-09-22 12:49] LABS: INR 1.2 (<1.2); Prothrombin Time 12.7 sec (9.0-12.0)
--- NOTE | 2021-09-22 13:57 | P.PN ---
Subjective Progress Note Date: 09/22/21 This patient is a 81-year-old female who is status-post closed reduction and intramedullary nailing left hip on 09/18/21. Today is postoperative day #4. The patient is seen and examined bedside. She states the pain in the left hip is well controlled. Upper GI bleed has resolved and there are no plans for EGD at this time. There are plans for discharge today. Vital signs stable. Objective - Vital Signs Vital signs: Vital Signs Temp 98.0 F 09/22/21 11:51 Pulse 69 09/22/21 11:51 Resp 17 09/22/21 11:51 BP 180/70 09/22/21 11:51 Pulse Ox 94 L 09/22/21 11:51 FiO2 Intake & Output 09/21/21 09/22/21 09/22/21 18:59 06:59 18:59 Intake Total 880 200 660 Output Total 300 Balance 880 200 360 Intake: Intake, IV Titration 160 Amount Sodium Chloride 0.9% 1, 160 000 ml @ 0 mls/hr IV .Lumexis ONE Rx#:[id number] Oral 720 200 660 Output: Urine 300 Other: Voiding Method External Catheter External Catheter External Catheter # Voids 1 1 1 - Exam on examination, the patient is sitting up in bed in no apparent distress. She is alert and oriented 3. On inspection of her left hip, there is a surgical dressing in place with some serosanguineous drainage present. No active drainage. There is mild swelling in the thigh, the thigh soft and compressible. Patient is able to wiggle her left toes appropriately. The dorsalis pedis pulses palpable, the left lower extremity is warm and well perfused with brisk capillary refill distally. Calf is soft and nontender to palpation. - Labs CBC & Chem 7: 09/21/21 08:26 09/22/21 10:22 Labs: Abnormal Lab Results - Last 24 Hours (Table) 09/21/21 09/21/21 09/22/21 Range/Units 16:39 19:43 05:34 PT (9.0-12.0) sec INR (<1.2) BUN (7-17) mg/dL Creatinine (0.52-1.04) mg/dL Glucose (74-99) mg/dL POC Glucose (mg/dL) 150 H 182 H 112 H (75-99) mg/dL 09/22/21 09/22/21 09/22/21 Range/Units 10:22 10:22 11:36 PT 12.7 H (9.0-12.0) sec INR 1.2 H (<1.2) BUN 18 H (7-17) mg/dL Creatinine 1.10 H (0.52-1.04) mg/dL Glucose 145 H (74-99) mg/dL POC Glucose (mg/dL) 144 H (75-99) mg/dL Assessment and Plan Assessment: Status-post closed reduction and intramedullary nailing left hip on 09/18/21. Post-operative day #4. Plan: - Toe-touch weightbearing on the operative extremity. Up with assistance, with a walker. - Physical therapy for gait and balance training. - Daily dressing changes to left hip. - DVT prophylaxis per internal medicine. - Pain management as needed. - Medical management per internal medicine, cardiology. - Anticipate discharge to rehab. Follow-up with Dr. Stock in 2 weeks.
[2021-09-22] MEDS: HYDROcodone/APAP 5-325MG 1 EACH TAB PO PRN (14:43)
[2021-09-22 16:02] VITALS: BP 159/62; PULSE 63; TEMP 97.6
[2021-09-22] MEDS ORDERED: WARFARIN 5 MG TAB PO ONE (18:00)
--- NOTE | 2021-09-26 06:39 | CDI ---
Documentation Clarification Form Date: 09/26/21 From: Tatiana Estrada Admit Date: 09/14/2021 10:28:00 PM Patient Name: Phoebe Matamoros Visit Number: [id number] Discharge Date: 09/22/2021 03:08:00 PM ATTENTION: The Clinical Documentation Specialists (CDI) and [facility] Coding Staff appreciate your assistance in clarifying documentation. Please respond to the clarification below the line at the bottom and electronically sign. The CDI & [facility] Coding staff will review the response and follow-up if needed. Please note: Queries are made part of the Legal Health Record. If you have any questions, please contact the author of this message via ITS. Dr. Conner Warren, Chronic CKD is documented in Dr Posada's consult and 09/21 PN. Additional clarification regarding the stage of CKD is requested. History/Risk Factors: Left intertrochanteric fx, acute kidney failure, hematemesis, left hemiplegia, SVT & chronic A fib, HLD, hypothyroidism, liver disease, nontoxic goiter, liver disease, depression Current Labs: BUN: 20, 20, 20, 18 CR: 1.27, 1.14, 1.09, 1.10 GFR : 40, 46, 49, 48 Clinical Indicators: 75-year-old female status post fall with left hip fracture with ORIF. Recent US showed something on her kidney. Treatment: Monitored renal labs, IV fluids Please clarify the stage of the CKD, if known: [ ] CKD Stage 1 (GFR > 90) [ ] CKD Stage 2 (GFR 60-89) [ ] CKD Stage 3 (GFR 30-59) [ ] CKD Stage 3a (GFR 45-59) [ ] CKD Stage 3b (GFR 30-44) [ ] CKD Stage 4 (GFR 15-29) [ ] CKD Stage 5 (GFR <15) [ ] ESRD [ ] Other, please specify [ ] Unable to determine MTDD
--- NOTE | 2021-09-26 18:23 | MISC ---
MISCELLANOUS REPORT QUERY: Acute diastolic heart failure. MMODL / IJN: [id number] /
--- NOTE | 2021-09-27 08:41 | MISC ---
MISCELLANOUS REPORT QUERY: UTI with Enterobacter. MMODL / IJN: [id number] /
--- NOTE | 2021-09-27 08:41 | MISC ---
MISCELLANOUS REPORT QUERY: Stage 3A. MMODL / IJN: [id number] /
== END 2021-09-22 15:08 | DRG 480 ==
LOC: EC 18:46 → 4SSUR 22:28 → 3SCARD 09-16 14:28
PROVIDERS: ADMIT Family Medicine; ATTEND Family Medicine
PROC: 0QS736Z Reposition Left Upper Femur with Intramedullary Internal Fixation Device, Percutaneous Approach (ICD-10-PCS; principal; 2021-09-18 09:00)
DX: S72.142A Displaced intertrochanteric fracture of left femur, initial encounter for closed fracture (principal); I50.31 Acute diastolic (congestive) heart failure; N17.9 Acute kidney failure, unspecified; K92.0 Hematemesis; I69.354 Hemiplegia and hemiparesis following cerebral infarction affecting left non-dominant side; I47.1 Supraventricular tachycardia; I48.20 Chronic atrial fibrillation, unspecified; I13.0 Hypertensive heart and chronic kidney disease with heart failure and stage 1 through stage 4 chronic kidney disease, or unspecified chronic kidney disease; N39.0 Urinary tract infection, site not specified; E11.22 Type 2 diabetes mellitus with diabetic chronic kidney disease; N18.31 Chronic kidney disease, stage 3a; Z20.822 Contact with and (suspected) exposure to COVID-19; B96.89 Other specified bacterial agents as the cause of diseases classified elsewhere; E78.5 Hyperlipidemia, unspecified; E03.9 Hypothyroidism, unspecified; E04.9 Nontoxic goiter, unspecified; K76.9 Liver disease, unspecified; F32.A Depression, unspecified; K29.70 Gastritis, unspecified, without bleeding; Z79.82 Long term (current) use of aspirin; Z79.84 Long term (current) use of oral hypoglycemic drugs; Z79.890 Hormone replacement therapy; Z79.01 Long term (current) use of anticoagulants; Z79.899 Other long term (current) drug therapy; Z86.19 Personal history of other infectious and parasitic diseases; Z90.89 Acquired absence of other organs; Z90.49 Acquired absence of other specified parts of digestive tract; Z87.19 Personal history of other diseases of the digestive system; Z90.710 Acquired absence of both cervix and uterus; Z98.42 Cataract extraction status, left eye; Z98.41 Cataract extraction status, right eye; Z87.42 Personal history of other diseases of the female genital tract; Z87.891 Personal history of nicotine dependence; Z98.890 Other specified postprocedural states; W06.XXXA Fall from bed, initial encounter; Y92.122 Bedroom in nursing home as the place of occurrence of the external cause; Z83.3 Family history of diabetes mellitus; Z80.8 Family history of malignant neoplasm of other organs or systems
CPT/HCPCS: 71045; 73501; 73502; 80048; 80053; 81001; 82550; 83735; 83880; 84443; 84484; 85025; 85027; 85610; 87077; 87086; 87186; 87635; 93005; 93306; 94640; 94760; 99285

== ENCOUNTER 2021-10-27 05:18 | Observation (INO) | payer MEDICARE, BC ==
[2021-10-27] MEDS ORDERED: ONDANSETRON 4 MG/2 ML VIAL IVP STA (05:32)
[2021-10-27] MEDS ORDERED: PANTOPRAZOLE 40 MG/10 ML VIAL IVP STA (05:32)
[2021-10-27 06:51] LABS: Anisocytosis Slight; Basophils # (A) 0.1 k/uL (0-0.2); Basophils % (A) 0 %; Eosinophils % (A) 0 %; HCT 42.6 % (34.0-46.0); HGB 12.8 gm/dL (11.4-16.0); Hypochromasia Marked; Lymphocytes % (A) 7 %; MCH 27.8 pg (25.0-35.0); MCV 92.6 fL (80.0-100.0); Mean Platelet Volume 8.6; Monocytes # (A) 0.7 k/uL (0-1.0); Monocytes % (A) 6 %; Neutrophils # (A) 11.1 k/uL (1.3-7.7); Neutrophils % (A) 86 %; Platelet Count 288 k/uL (150-450); RDW 16.1 % (11.5-15.5)
--- NOTE | 2021-10-27 06:54 | XR ---
EXAMINATION TYPE: XR chest 1V portable DATE OF EXAM: 10/27/2021 COMPARISON: 09/20/2021 HISTORY: Chest pain TECHNIQUE: Single view FINDINGS: There is coarse interstitial infiltrates in the mid and lower lung cline. Heart size is no rmal. No obvious heart failure. There are chest leads. No pneumothorax. IMPRESSION: There is a changing pattern of coarse predominantly interstitial infiltrates in the lung cline that could relate to interstitial fibrosis and interstitial pneumonia and atelectasis. No hear t failure seen
[2021-10-27 06:56] LABS: INR 1.1 (<1.2)
[2021-10-27 06:57] LABS: Partial Thromboplastin Time 27.1 sec (22.0-30.0); Prothrombin Time 11.5 sec (9.0-12.0)
[2021-10-27 06:59] LABS: Albumin 3.3 g/dL (3.5-5.0); Calcium 9.2 mg/dL (8.4-10.2); Potassium 4.6 mmol/L (3.5-5.1); Total Protein 6.1 g/dL (6.3-8.2)
[2021-10-27] MEDS ORDERED: NALOXONE 0.4 MG/ML 1 ML VIAL IV PRN (07:38)
[2021-10-27] MEDS ORDERED: ONDANSETRON 4 MG/2 ML VIAL IVP PRN (07:43)
[2021-10-27] MEDS ORDERED: AZITHROMYCIN 500 MG TAB PO STA (08:08)
--- NOTE | 2021-10-27 08:11 | ED ---
GI Bleed HPI - General Chief complaint: GI Bleed Stated complaint: Vomiting Time Seen by Provider: 10/27/21 05:21 Source: patient Mode of arrival: EMS Limitations: physical limitation - History of Present Illness Initial comments: This patient is a 81-year-old woman sent from care home to have evaluation for suspected GI bleeding. The patient reports that she has been having a number of episodes of vomiting she states greater than 8-10 episodes over the course of tonight. Staff at the care home noted that with the last couple of episodes of vomiting there was coffee-ground material. Patient denies any abdominal pain. She did not note any symptoms of anemia, no chest pain, dyspnea, palpitations. She did not note any change in bowel movements no tarry or bloody stools reported. MD complaint: gross hematemesis -: hour(s) Severity scale (1-10): 0 Consistency: constant Improves with: none Worsens with: none Context: blood thinners Associated Symptoms: nausea, vomiting - Related Data Home Medications Medication Instructions Recorded Confirmed Aspirin 81 mg PO DAILY@1700 06/11/15 10/27/21 Benazepril [Lotensin] 5 mg PO DAILY@0800 06/11/15 10/27/21 Metoprolol Tartrate 12.5 mg PO BID@0800,169906/11/15 10/27/21 Oxybutynin Chloride 5 mg PO BID@0800,1700 06/11/15 10/27/21 Levothyroxine Sodium [Synthroid] 75 mcg PO DAILY@0600 09/14/21 10/27/21 Amiodarone [Cordarone] 100 mg PO DAILY@0800 10/27/21 10/27/21 Apixaban [Eliquis] 5 mg PO BID@0800,1700 10/27/21 10/27/21 Dulaglutide [Trulicity] 0.75 mg SQ WE 10/27/21 10/27/21 HYDROcodone/APAP 5-325MG [[place] 5] 1 tab PO Q6HR PRN 10/27/21 10/27/21 Magnesium Hydroxide [Milk of 7,200 mg PO DAILY PRN 10/27/21 10/27/21 Magnesia Concentrate] Na Phos,M-B/Na Phos,Di-Ba [Fleet 133 ml RECTAL DAILY PRN 10/27/21 10/27/21 Adult] Pantoprazole [Protonix] 40 mg PO BID@0800,1700 10/27/21 10/27/21 bisacodyL [Dulcolax] 10 mg RECTAL DAILY PRN 10/27/21 10/27/21 metFORMIN HCL [Glucophage] 500 mg PO DAILY@0800 10/27/21 10/27/21 Allergies Allergy/AdvReac Type Severity Reaction Status Date / Time No Known Allergies Allergy Verified 10/27/21 07:30 Review of Systems ROS Statement: Those systems with pertinent positive or pertinent negative responses have been documented in the HPI. ROS Other: All systems not noted in ROS Statement are negative. Constitutional: Denies: fever, chills Respiratory: Denies: cough, dyspnea Cardiovascular: Denies: chest pain, palpitations, edema Gastrointestinal: Reports: nausea, vomiting, hematemesis. Denies: abdominal pain, diarrhea, constipation, melena, hematochezia Genitourinary: Denies: dysuria, hematuria Musculoskeletal: Denies: back pain Skin: Denies: rash Neurological: Denies: headache, weakness, numbness Past Medical History Past Medical History: CVA/TIA, Diabetes Mellitus, Hyperlipidemia, Hypertension, Liver Disease, Thyroid Disorder Additional Past Medical History / Comment(s): Stroke 2006-left sided paralysis, rheumatic fever as child, goiter, hx hepatitis as child' "from water". "recent ultrasound showed something on my kidney" History of Any Multi-Drug Resistant Organisms: None Reported Past Surgical History: Adenoidectomy, Appendectomy, Cholecystectomy, Hysterectomy, Orthopedic Surgery, Tonsillectomy Additional Past Surgical History / Comment(s): mona cataract surgery, bilateral knee surgeries, Past Anesthesia/Blood Transfusion Reactions: No Reported Reaction Past Psychological History: No Psychological Hx Reported Smoking Status: Former smoker Past Alcohol Use History: None Reported Past Drug Use History: None Reported - Past Family History Mother Family Medical History: Diabetes Mellitus Son(s) Family Medical History: Cancer Additional Family Medical History / Comment(s): brain tumor General Exam Limitations: physical limitation General appearance: alert, in no apparent distress Head exam: Present: atraumatic, normocephalic Eye exam: Present: normal appearance. Absent: scleral icterus, conjunctival injection ENT exam: Present: mucous membranes dry Neck exam: Present: normal inspection Respiratory exam: Present: normal lung sounds bilaterally. Absent: respiratory distress, wheezes, rales, rhonchi, stridor Cardiovascular Exam: Present: regular rate, normal rhythm, normal heart sounds. Absent: systolic murmur, diastolic murmur, rubs, gallop GI/Abdominal exam: Present: soft. Absent: distended, tenderness, guarding, rebound, rigid, mass Extremities exam: Present: normal inspection, tenderness (To left hip/pelvis), normal capillary refill. Absent: calf tenderness Back exam: Present: normal inspection Skin exam: Present: warm, dry, intact, normal color. Absent: rash Course Vital Signs 10/27/21 10/27/21 05:22 06:31 Temperature 99.6 F Pulse Rate 71 62 Respiratory 20 18 Rate Blood Pressure 183/66 184/65 O2 Sat by Pulse 82 L Oximetry Medical Decision Making - Medical Decision Making Patient is 81-year-old woman transferred from care home for evaluation of coffee-ground emesis. Patient also found with low pulse oximetry readings here. Given appearance of chest x-ray and pulse oximetry reading, will cover patient with azithromycin. Patient admitted to have serial hemoglobin. Discussed CODE STATUS, patient states that she would not want CPR or mechanical ventilation. Case discussed with admitting physician. Orders entered. - Lab Data Result diagrams: 10/27/21 05:50 10/27/21 05:33 Lab Results 10/27/21 10/27/21 10/27/21 Range/Units 05:33 05:33 05:33 WBC (3.8-10.6) k/uL RBC (3.80-5.40) m/uL Hgb (11.4-16.0) gm/dL Hct (34.0-46.0) % MCV (80.0-100.0) fL MCH (25.0-35.0) pg MCHC (31.0-37.0) g/dL RDW (11.5-15.5) % Plt Count (150-450) k/uL MPV Neutrophils % % Lymphocytes % % Monocytes % % Eosinophils % % Basophils % % Neutrophils # (1.3-7.7) k/uL Lymphocytes # (1.0-4.8) k/uL Monocytes # (0-1.0) k/uL Eosinophils # (0-0.7) k/uL Basophils # (0-0.2) k/uL Hypochromasia Anisocytosis PT 11.5 (9.0-12.0) sec INR 1.1 (<1.2) APTT 27.1 (22.0-30.0) sec Sodium 137 (137-145) mmol/L Potassium 4.6 (3.5-5.1) mmol/L Chloride 106 (98-107) mmol/L Carbon Dioxide 27 (22-30) mmol/L Anion Gap 4 mmol/L BUN 19 H (7-17) mg/dL Creatinine 1.18 H (0.52-1.04) mg/dL Est GFR (CKD-EPI)AfAm 51 (>60 ml/min/1.73 sqM) Est GFR (CKD-EPI)NonAf 44 (>60 ml/min/1.73 sqM) Glucose 304 H (74-99) mg/dL Calcium 9.2 (8.4-10.2) mg/dL Total Bilirubin 1.0 (0.2-1.3) mg/dL AST 24 (14-36) U/L ALT 12 (4-34) U/L Alkaline Phosphatase 108 (38-126) U/L Troponin I <0.012 (0.000-0.034) ng/mL Total Protein 6.1 L (6.3-8.2) g/dL Albumin 3.3 L (3.5-5.0) g/dL Blood Type Blood Type Recheck Bld Type Recheck Status Antibody Screen Spec Expiration Date 10/27/21 10/27/21 Range/Units 05:50 05:50 WBC 13.0 H (3.8-10.6) k/uL RBC 4.60 (3.80-5.40) m/uL Hgb 12.8 (11.4-16.0) gm/dL Hct 42.6 (34.0-46.0) % MCV 92.6 (80.0-100.0) fL MCH 27.8 (25.0-35.0) pg MCHC 30.0 L (31.0-37.0) g/dL RDW 16.1 H (11.5-15.5) % Plt Count 288 (150-450) k/uL MPV 8.6 Neutrophils % 86 % Lymphocytes % 7 % Monocytes % 6 % Eosinophils % 0 % Basophils % 0 % Neutrophils # 11.1 H (1.3-7.7) k/uL Lymphocytes # 1.0 (1.0-4.8) k/uL Monocytes # 0.7 (0-1.0) k/uL Eosinophils # 0.0 (0-0.7) k/uL Basophils # 0.1 (0-0.2) k/uL Hypochromasia Marked Anisocytosis Slight PT (9.0-12.0) sec INR (<1.2) APTT (22.0-30.0) sec Sodium (137-145) mmol/L Potassium (3.5-5.1) mmol/L Chloride (98-107) mmol/L Carbon Dioxide (22-30) mmol/L Anion Gap mmol/L BUN (7-17) mg/dL Creatinine (0.52-1.04) mg/dL Est GFR (CKD-EPI)AfAm (>60 ml/min/1.73 sqM) Est GFR (CKD-EPI)NonAf (>60 ml/min/1.73 sqM) Glucose (74-99) mg/dL Calcium (8.4-10.2) mg/dL Total Bilirubin (0.2-1.3) mg/dL AST (14-36) U/L ALT (4-34) U/L Alkaline Phosphatase (38-126) U/L Troponin I (0.000-0.034) ng/mL Total Protein (6.3-8.2) g/dL Albumin (3.5-5.0) g/dL Blood Type AB Positive Blood Type Recheck No Previous Record Bld Type Recheck Status CABO Indicated Antibody Screen NEGATIVE Spec Expiration Date 10/30/20212349
[2021-10-27] MEDS: SODIUM CHLORIDE 0.9% 1,000 ML IV SCH ×2 (08:35→21:09)
[2021-10-27 08:45] LABS: INR 1.1 (<1.2); Partial Thromboplastin Time 27.3 sec (22.0-30.0); Prothrombin Time 11.3 sec (9.0-12.0)
[2021-10-27] MEDS ORDERED: MAGNESIUM HYDROXIDE 2,400 MG/10 ML CUP PO PRN (11:06)
[2021-10-27] MEDS ORDERED: bisacodyL 10 MG SUPP RECTAL PRN (11:06)
[2021-10-27 12:24] LABS: Glucose,Whole Blood 249 mg/dL (70-110)
[2021-10-27] MEDS: ACETAMINOPHEN TAB 325 MG TAB PO PRN (14:07)
[2021-10-27 14:45] LABS: Anisocytosis Slight; Basophils # (A) 0.1 k/uL (0-0.2); Basophils % (A) 1 %; Eosinophils % (A) 0 %; HCT 40.8 % (34.0-46.0); HGB 12.5 gm/dL (11.4-16.0); Hypochromasia Marked; Lymphocytes # (A) 1.6 k/uL (1.0-4.8); Lymphocytes % (A) 14 %; MCH 28.7 pg (25.0-35.0); MCHC 30.7 g/dL (31.0-37.0); MCV 93.5 fL (80.0-100.0); Mean Platelet Volume 9.7; Monocytes # (A) 0.9 k/uL (0-1.0); Monocytes % (A) 8 %; Neutrophils # (A) 8.2 k/uL (1.3-7.7); Neutrophils % (A) 75 %; Platelet Count 311 k/uL (150-450); RBC 4.36 m/uL (3.80-5.40); RDW 16.3 % (11.5-15.5); WBC 10.9 k/uL (3.8-10.6)
[2021-10-27] MEDS ORDERED: PANTOPRAZOLE 40 MG TABLET PO SCH (17:00)
[2021-10-27 17:39] LABS: Glucose,Whole Blood 234 mg/dL (70-110)
[2021-10-27] MEDS: METOPROLOL TARTRATE 12.5 MG TAB PO SCH (17:50)
--- NOTE | 2021-10-27 19:57 | HP ---
HISTORY AND PHYSICAL CHIEF COMPLAINT: Coffee-ground emesis. HISTORY OF PRESENT ILLNESS: This is another admission for this 81-year-old white female. She recently fractured her left hip and was placed in [facility] for physical therapy and rehab. She has had a prior CVA. Overnight a nurse called that she was coughing up dark brown material, thinking it was hematemesis. She was moved to the hospital. REVIEW OF SYSTEMS: She denies any headaches, neurologic changes, abdominal pain, melena, hematochezia, urinary incontinence, etc. Past medical history, family history, and personal and social histories are all otherwise unremarkable or unchanged from her recent admitting and discharge summaries. She has been on Coumadin for many years for atrial fibrillation. PHYSICAL EXAMINATION: Blood pressure 183/66 with a pulse of 75, respirations of 30, and she is afebrile. In general she appeared to be well developed, well nourished, in no acute distress. Skin color was normal. She was not pale. Head, ears, eyes, nose, mouth and throat were normal. The chest is clear. Cardiac exam demonstrated what sounded like atrial fibrillation. Abdomen is soft and nontender without any masses. Extremities are normal. The left hip incision is almost completely healed. Neurologically she was intact except for her hemiparesis. She is admitted to the hospital with the diagnoses: 1. Hematemesis. 2. Recent left hip fracture. 3. Atrial fibrillation. 4. Diabetes. PLAN: 1. Bedrest. 2. IV fluids. 3. Treat for upper GI bleed. 4. Control diabetes. 5. Control blood pressure. 6. She wants to be DNR. MMSHAYY / SHANTN: [id number] /
[2021-10-27 20:20] LABS: Anisocytosis Slight; Basophils # (A) 0.1 k/uL (0-0.2); Basophils % (A) 1 %; Eosinophils # (A) 0.1 k/uL (0-0.7); Eosinophils % (A) 1 %; HCT 40.3 % (34.0-46.0); HGB 12.1 gm/dL (11.4-16.0); Hypochromasia Marked; Lymphocytes # (A) 2.1 k/uL (1.0-4.8); Lymphocytes % (A) 24 %; MCH 28.5 pg (25.0-35.0); MCHC 30.1 g/dL (31.0-37.0); MCV 94.7 fL (80.0-100.0); Mean Platelet Volume 9.2; Monocytes # (A) 0.8 k/uL (0-1.0); Monocytes % (A) 9 %; Neutrophils # (A) 5.6 k/uL (1.3-7.7); Neutrophils % (A) 63 %; Platelet Count 300 k/uL (150-450); RBC 4.26 m/uL (3.80-5.40); RDW 16.2 % (11.5-15.5); WBC 8.9 k/uL (3.8-10.6)
[2021-10-27] MEDS ORDERED: INSULIN DETEMIR (LEVEMIR) 100 UNIT/ML SYR SQ SCH (21:00)
[2021-10-27] MEDS: INSULIN ASPART (NovoLOG) 100 UNIT/ML VIAL SQ SCH (21:08)
[2021-10-27 21:09] LABS: Glucose,Whole Blood 165 mg/dL (70-110)
[2021-10-28] MEDS: ACETAMINOPHEN TAB 325 MG TAB PO PRN (02:49)
[2021-10-28] MEDS ORDERED: LEVOTHYROXINE 75 MCG TAB PO SCH (06:00)
[2021-10-28 07:23] LABS: Glucose,Whole Blood 92 mg/dL (70-110)
[2021-10-28 07:45] VITALS: BP 146/57; PULSE 55; RESP 18; TEMP 97.6
[2021-10-28] MEDS ORDERED: PANTOPRAZOLE 40 MG/10 ML VIAL IV SCH (09:00)
[2021-10-28] MEDS: INSULIN ASPART (NovoLOG) 100 UNIT/ML VIAL SQ SCH ×2 (09:19→14:30)
[2021-10-28] MEDS: METOPROLOL TARTRATE 12.5 MG TAB PO SCH (09:20)
[2021-10-28 11:38] LABS: Glucose,Whole Blood 94 mg/dL (70-110)
--- NOTE | 2021-10-28 12:50 | DS ---
DISCHARGE SUMMARY CHIEF COMPLAINT: Nausea, vomiting and coffee-grounds emesis. HISTORY OF PRESENT ILLNESS AND PHYSICAL EXAMINATION: Details of this lady's history and physical can be found in the initial workup. LABORATORY STUDIES: While she was in the hospital she had laboratory studies, details of which can be found in the laboratory section of her chart. COURSE IN THE HOSPITAL: After admission she was placed on bedrest, started on intravenous fluids and hemoglobin and vital signs remained stable. She was anxious to get back to the snf for rehab. She will go back to [facility] on the same medications she has been on, but 81 mg of aspirin will be stopped and her apixaban will be dropped down to 2.5 mg twice a day. FINAL DIAGNOSES: 1. Nausea and vomiting. 2. Possible upper GI bleed. 3. Recent left hip fracture. 4. 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 5. Type 2 IDDM. OPERATIONS: None. CONSULTATIONS: None. She is improved. MMSHAYY / SHANTN: [id number] /
[2021-10-28] MEDS: SODIUM CHLORIDE 0.9% 1,000 ML IV SCH (14:29)
[2021-10-28] MEDS ORDERED: PANTOPRAZOLE 40 MG TABLET PO SCH (17:30)
== END 2021-10-28 15:22 ==
LOC: EC 05:18 → 6NMEDSUR 07:49
PROVIDERS: ADMIT Family Medicine; ATTEND Family Medicine
DX: R11.2 Nausea with vomiting, unspecified (principal); E11.9 Type 2 diabetes mellitus without complications; I48.91 Unspecified atrial fibrillation; I10 Essential (primary) hypertension; E78.5 Hyperlipidemia, unspecified; I69.354 Hemiplegia and hemiparesis following cerebral infarction affecting left non-dominant side; K76.9 Liver disease, unspecified; E04.9 Nontoxic goiter, unspecified; S72.002D Fracture of unspecified part of neck of left femur, subsequent encounter for closed fracture with routine healing; Z66 Do not resuscitate; Z79.82 Long term (current) use of aspirin; Z79.890 Hormone replacement therapy; Z79.01 Long term (current) use of anticoagulants; Z79.84 Long term (current) use of oral hypoglycemic drugs; Z79.899 Other long term (current) drug therapy; Z86.19 Personal history of other infectious and parasitic diseases; Z90.49 Acquired absence of other specified parts of digestive tract; Z90.710 Acquired absence of both cervix and uterus; Z98.42 Cataract extraction status, left eye; Z98.41 Cataract extraction status, right eye; Z98.890 Other specified postprocedural states; Z87.891 Personal history of nicotine dependence; Z83.3 Family history of diabetes mellitus; Z80.8 Family history of malignant neoplasm of other organs or systems
CPT/HCPCS: 96376 ×2; 96361 ×2; 96374; 96375; 99285; 36415; 97162; 97166; 86900; 86901; 80053; 84484; 85025; 85610; 85730; 86850; 87635; 71045; G0378 ×2; J2405; C9113 ×2

== ENCOUNTER → 2021-12-20 | Outpatient (CLI) | payer MEDICARE, BC ==
--- NOTE | 2021-12-22 21:03 | US ---
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 SIDE PERFORMED: bilateral 1) Color flow is present and patency is documented in the following vessels. No DVT or SVT is noted . Common Femoral Vein Deep Femoral Vein Femoral Vein Popliteal Vein Proximal Calf Veins Greater Saph Vein Upper Small Saph Vein 2) There is venous reflux noted at the following venous levels: Right mild reflux in GSV. Right Small saphenous vein and calf veins not scanned. See below. Left DFV, popliteal veins, SSV not scanned. See below Due to a stroke, patient unable to maintain a viable position for technologist to scan vessels. Patie nt uncomfortable and in pain that got increasingly worse as test progressed. Patient constantly movin g throughout exam. No notation of left side venous anomaly reflux by technologist. IMPRESSION: 1. Reflux within the right greater saphenous vein. 2. Right side venous structures incompletely evaluated due to patient cooperation and comfort.
== END | disposition home or self-care (01) ==
LOC: RADUSWWP 21:42
PROVIDERS: ATTEND Nurse Practitioner Family
DX: I70.245 Atherosclerosis of native arteries of left leg with ulceration of other part of foot (principal)
CPT/HCPCS: 93922; 93970

== ENCOUNTER → 2022-01-24 | Outpatient (CLI) | payer MEDICARE, BC ==
--- NOTE | 2022-01-25 16:07 | CT ---
EXAMINATION TYPE: CT angio abd aorta w/Runoff CT DLP: 1237 mGycm, Automated exposure control for dose reduction was used. DATE OF EXAM: 01/24/2022 5:03 PM COMPARISON: None CLINICAL INDICATION:Female, 82 years old with history of I70.92, non healing wound of left foot TECHNIQUE: Multiple thin slice sub-millimeter images were obtained through the abdomen, pelvis, and l ower extremities after administration of contrast. 3-D reconstructed images and maximum intensity pr ojection images were obtained of the abdomen, pelvis, and lower extremities. CT Contrast: Contrast used:80 mL of Isovue 370 with IV Contrast, Oral contrast used: None FINDINGS: CTA Abdomen and pelvis: The very distal aorta demonstrates calcified and noncalcified atherosclerosis . The common iliac arteries are patent and demonstrate moderate atherosclerotic disease. The external iliac arteries bilaterally are patent with atherosclerotic disease. CTA Lower extremities: Right: The common femoral is patent. There is occlusion of the superficial femoral artery just past i ts origin with reconstitution near the popliteal artery which is is patent. Anterior and posterior ti bial arteries as well as the peroneal artery are patent. Significant atherosclerosis of the leg arter ial vasculature with only the posterior tibial artery definitively crossing the ankle. There is a dim inutive appearance of the anterior tibial artery. Left: The common femoral is patent. There is occlusion of the superficial femoral artery just past it s origin with reconstitution in the distal portion. The popliteal artery is patent. Anterior and post erior tibial arteries as well as the peroneal artery are patent. Significant atherosclerosis of the l eg arterial vasculature with only the anterior tibial artery definitively crossing the ankle. There i s a diminutive appearance of the posterior tibial artery. Soft tissue skin defect noted along the medial aspect along the metatarsals phalangeal joint of the f irst digit with focus of gas seen within the left first metatarsal. There is subcutaneous edema most pronounced throughout the leg and calf of the left lower extremity. LOWER CHEST: No evidence of focal consolidation, pneumothorax or pleural effusion. LIVER: Visualized portions are unremarkable. GALLBLADDER AND BILE DUCTS: Not visualized PANCREAS: Visualized portions are unremarkable. SPLEEN: Visualized portions are unremarkable. ADRENAL GLANDS: Not visualized KIDNEYS AND URETERS: Visualized portions are unremarkable. PELVIS BLADDER: Unremarkable REPRODUCTIVE: Unremarkable. ABDOMEN & PELVIS STOMACH AND BOWEL: No evidence of bowel obstruction. Scattered clonic diverticula are present. PERITONEUM: No evidence of pneumoperitoneum or free fluid. VASCULATURE: No evidence of aortic aneurysm. Atherosclerosis of the arterial vasculature. MUSCULOSKELETAL: No acute osseous abnormalities, left femur fixation hardware with hardware appearing intact. There is a moderate left knee joint effusion. Multilevel degeneration changes of the visuali zed spine. LYMPH NODES: No gross evidence for lymphadenopathy. SOFT TISSUE/ABDOMINAL WALL: Unremarkable IMPRESSION 1. 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 The re is at least one vessel crossing the ankles bilaterally, on the right the posterior tibial artery a nd on the left anterior tibial artery. 2. Superficial wound involving the left foot medial aspect near the first digit middle tarsal phalang eal joint with focus of gas within the first metatarsal which may represent dry gangrene changes.
== END | disposition home or self-care (01) ==
LOC: RADCTMAIN 13:24
PROVIDERS: ATTEND Surgery
DX: S90.932A Unspecified superficial injury of left great toe, initial encounter (principal); I70.92 Chronic total occlusion of artery of the extremities
CPT/HCPCS: 82565; 84520; 75635; 36415; Q9967

== ENCOUNTER 2022-02-21 14:18 | Inpatient (IN) | payer MEDICARE, BC ==
--- NOTE | 2022-02-21 17:06 | ED ---
General Adult HPI - General Chief complaint: Skin/Abscess/Foreign Body Stated complaint: LEFT FOOT WOUND,SENT FROM WOUND CARE Time Seen by Provider: 02/21/22 16:50 Source: patient, family, RN notes reviewed Mode of arrival: wheelchair Limitations: no limitations - History of Present Illness Initial comments: Patient is a pleasant 82-year-old female presenting to the emergency Department with left foot wound. Patient does have chronic wound with discussion of amputation. Patient is supposed to see Dr. Andrew however this has been rescheduled twice. There is starting to become older. Patient is going to wound care. Patient was sent from wound care today for hospital admission. Patient has had occasional intermittent low-grade fevers last week or so. - Related Data Home Medications Medication Instructions Recorded Confirmed Benazepril [Lotensin] 5 mg PO DAILY@0800 06/11/15 10/27/21 Metoprolol Tartrate 12.5 mg PO BID@0800,1700 06/11/15 10/27/21 Oxybutynin Chloride 5 mg PO BID@0800,1700 06/11/15 10/27/21 Levothyroxine Sodium [Synthroid] 75 mcg PO DAILY@0600 09/14/21 10/27/21 Dulaglutide [Trulicity] 0.75 mg SQ WE 10/27/21 10/27/21 HYDROcodone/APAP 5-325MG [[place] 1 tab PO Q6HR PRN 10/27/21 10/27/21 5-325] Magnesium Hydroxide [Milk of 7,200 mg PO DAILY PRN 10/27/21 10/27/21 Magnesia Concentrate] Na Phos,M-B/Na Phos,Di-Ba [Fleet 133 ml RECTAL DAILY PRN 10/27/21 10/27/21 Adult] Pantoprazole [Protonix] 40 mg PO BID@0800,1700 10/27/21 10/27/21 bisacodyL [Dulcolax] 10 mg RECTAL DAILY PRN 10/27/21 10/27/21 metFORMIN HCL [Glucophage] 500 mg PO DAILY@0800 10/27/21 10/27/21 Previous Rx's Medication Instructions Recorded Apixaban [Eliquis] 2.5 mg PO BID@0800,1700 30 Days 10/28/21 tab Insulin Detemir (Levemir) [Levemir] 10 unit SQ HS #90 each 10/28/21 Allergies Allergy/AdvReac Type Severity Reaction Status Date / Time No Known Allergies Allergy Verified 02/21/22 14:22 Review of Systems ROS Statement: Those systems with pertinent positive or pertinent negative responses have been documented in the HPI. ROS Other: All systems not noted in ROS Statement are negative. Constitutional: Reports: as per HPI, fever Eyes: Denies: eye pain ENT: Denies: ear pain Respiratory: Denies: dyspnea Cardiovascular: Denies: chest pain Endocrine: Denies: fatigue Gastrointestinal: Denies: abdominal pain Genitourinary: Denies: dysuria Musculoskeletal: Denies: back pain Skin: Reports: as per HPI, rash Neurological: Denies: weakness Past Medical History Past Medical History: Atrial Fibrillation, Cancer, Heart Failure, CVA/TIA, Diabetes Mellitus, Hyperlipidemia, Hypertension, Liver Disease, Pneumonia, Renal Disease, Supraventricular Tachycardia (SVT), Thyroid Disorder Additional Past Medical History / Comment(s): Pt recently admitted on 09/14/21 to [facility] with fall with L hip fracture/surgery, SVT with CHF and had coffee ground emesis during stay. 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 History of Any Multi-Drug Resistant Organisms: None Reported Past Surgical History: Adenoidectomy, Appendectomy, Cholecystectomy, Hysterectomy, Orthopedic Surgery, Tonsillectomy Additional Past Surgical History / Comment(s): 09/18/21 ORIF L hip, bilateral knee arthrotomies, total thyroidectomy, bilateral cataract surgery. Past Anesthesia/Blood Transfusion Reactions: No Reported Reaction Past Psychological History: Depression Smoking Status: Former smoker Past Alcohol Use History: None Reported Past Drug Use History: None Reported - Past Family History Mother Family Medical History: Diabetes Mellitus Son(s) Family Medical History: Cancer Additional Family Medical History / Comment(s): brain tumor Father Family Medical History: Diabetes Mellitus General Exam Limitations: no limitations General appearance: alert, in no apparent distress Head exam: Present: normocephalic Eye exam: Present: normal appearance Neck exam: Present: normal inspection Respiratory exam: Present: normal lung sounds bilaterally Cardiovascular Exam: Present: regular rate, normal rhythm Expanded Peripheral pulses: 2+: Posterior Tibialis (L) GI/Abdominal exam: Present: soft. Absent: tenderness Extremities exam: Present: other (Left foot wound) Neurological exam: Present: alert Psychiatric exam: Present: normal affect, normal mood Skin exam: Present: other (Left heel wound, stage II/3. Left distal foot wound, medial near the first MCP, stage III/4. Foul odor.) Course Vital Signs 02/21/22 14:19 Temperature 97.7 F Pulse Rate 65 Respiratory 18 Rate Blood Pressure 173/60 O2 Sat by Pulse 95 Oximetry EKG Findings - EKG Comments: EKG Findings:: Sinus rhythm rate 65. ND 161. QRS 99. QT 370. QTc 381. Normal axis. Septal Q waves. Lateral ST depression. Medical Decision Making - Medical Decision Making Case was discussed with Dr. Warren who will admit his patient with consult for infectious disease Dr. Solano. Patient and family are made aware. - Lab Data Result diagrams: 02/21/22 18:16 02/21/22 18:16 Lab Results 02/21/22 02/21/22 02/21/22 Range/Units 18:16 18:16 18:16 WBC 7.7 (3.8-10.6) k/uL RBC 4.82 (3.80-5.40) m/uL Hgb 12.6 (11.4-16.0) gm/dL Hct 39.6 (34.0-46.0) % MCV 82.2 (80.0-100.0) fL MCH 26.2 (25.0-35.0) pg MCHC 31.8 (31.0-37.0) g/dL RDW 16.3 H (11.5-15.5) % Plt Count 381 (150-450) k/uL MPV 7.9 Neutrophils % 70 % Lymphocytes % 17 % Monocytes % 8 % Eosinophils % 2 % Basophils % 1 % Neutrophils # 5.4 (1.3-7.7) k/uL Lymphocytes # 1.3 (1.0-4.8) k/uL Monocytes # 0.6 (0-1.0) k/uL Eosinophils # 0.1 (0-0.7) k/uL Basophils # 0.1 (0-0.2) k/uL Hypochromasia Moderate Anisocytosis Slight PT 10.6 (9.0-12.0) sec INR 1.0 (<1.2) APTT 28.2 (22.0-30.0) sec Sodium 141 (137-145) mmol/L Potassium 4.3 (3.5-5.1) mmol/L Chloride 104 (98-107) mmol/L Carbon Dioxide 31 H (22-30) mmol/L Anion Gap 6 mmol/L BUN 14 (7-17) mg/dL Creatinine 1.20 H (0.52-1.04) mg/dL Est GFR (CKD-EPI)AfAm 49 (>60 ml/min/1.73 sqM) Est GFR (CKD-EPI)NonAf 43 (>60 ml/min/1.73 sqM) Glucose 173 H (74-99) mg/dL Plasma Lactic Acid Joshua (0.7-2.0) mmol/L Calcium 9.4 (8.4-10.2) mg/dL Total Bilirubin 1.2 (0.2-1.3) mg/dL AST 11 L (14-36) U/L ALT 8 (4-34) U/L Alkaline Phosphatase 82 (38-126) U/L Total Protein 6.5 (6.3-8.2) g/dL Albumin 3.4 L (3.5-5.0) g/dL 02/21/22 Range/Units 18:16 WBC (3.8-10.6) k/uL RBC (3.80-5.40) m/uL Hgb (11.4-16.0) gm/dL Hct (34.0-46.0) % MCV (80.0-100.0) fL MCH (25.0-35.0) pg MCHC (31.0-37.0) g/dL RDW (11.5-15.5) % Plt Count (150-450) k/uL MPV Neutrophils % % Lymphocytes % % Monocytes % % Eosinophils % % Basophils % % Neutrophils # (1.3-7.7) k/uL Lymphocytes # (1.0-4.8) k/uL Monocytes # (0-1.0) k/uL Eosinophils # (0-0.7) k/uL Basophils # (0-0.2) k/uL Hypochromasia Anisocytosis PT (9.0-12.0) sec INR (<1.2) APTT (22.0-30.0) sec Sodium (137-145) mmol/L Potassium (3.5-5.1) mmol/L Chloride (98-107) mmol/L Carbon Dioxide (22-30) mmol/L Anion Gap mmol/L BUN (7-17) mg/dL Creatinine (0.52-1.04) mg/dL Est GFR (CKD-EPI)AfAm (>60 ml/min/1.73 sqM) Est GFR (CKD-EPI)NonAf (>60 ml/min/1.73 sqM) Glucose (74-99) mg/dL Plasma Lactic Acid Joshua 0.9 (0.7-2.0) mmol/L Calcium (8.4-10.2) mg/dL Total Bilirubin (0.2-1.3) mg/dL AST (14-36) U/L ALT (4-34) U/L Alkaline Phosphatase (38-126) U/L Total Protein (6.3-8.2) g/dL Albumin (3.5-5.0) g/dL - Radiology Data Radiology results: image reviewed (X-ray interpreted by myself. Erosions at first MP joint. Soft tissue ulceration and osteomyelitis be considered) Disposition Clinical Impression: Diabetic foot ulcer Disposition: ADMITTED IP TO THIS [facility] Condition: Serious Is patient prescribed a controlled substance at d/c from ED?: No Referrals: Conner Warren MD [Primary Care Provider] - 1-2 days Time of Disposition: 18:46
--- NOTE | 2022-02-21 18:07 | XR ---
EXAMINATION TYPE: XR foot complete LT DATE OF EXAM: 02/21/2022 COMPARISON: NONE HISTORY: Foot wound TECHNIQUE: 3 views FINDINGS: There is mild plantar and Achilles calcaneal spurring. There is soft tissue swelling around the foot. There is osteopenia. There is narrowing of the first MP joint space with spur formation. T here are erosions on the first metatarsal head and at the base of the proximal phalanx of the big toe . IMPRESSION: Diffuse soft tissue swelling. Calcaneal spurring. Erosions at the first MP joint. There a ppears to be some soft tissue ulceration and osteomyelitis should be considered.
[2022-02-21 18:28] LABS: Anisocytosis Slight; Basophils # (A) 0.1 k/uL (0-0.2); Basophils % (A) 1 %; Eosinophils # (A) 0.1 k/uL (0-0.7); Eosinophils % (A) 2 %; HCT 39.6 % (34.0-46.0); HGB 12.6 gm/dL (11.4-16.0); Hypochromasia Moderate; Lymphocytes # (A) 1.3 k/uL (1.0-4.8); Lymphocytes % (A) 17 %; MCH 26.2 pg (25.0-35.0); MCHC 31.8 g/dL (31.0-37.0); MCV 82.2 fL (80.0-100.0); Mean Platelet Volume 7.9; Monocytes # (A) 0.6 k/uL (0-1.0); Monocytes % (A) 8 %; Neutrophils # (A) 5.4 k/uL (1.3-7.7); Neutrophils % (A) 70 %; Platelet Count 381 k/uL (150-450); RBC 4.82 m/uL (3.80-5.40); RDW 16.3 % (11.5-15.5); WBC 7.7 k/uL (3.8-10.6)
[2022-02-21 18:36] LABS: Partial Thromboplastin Time 28.2 sec (22.0-30.0); Prothrombin Time 10.6 sec (9.0-12.0)
[2022-02-21 18:41] LABS: Albumin 3.4 g/dL (3.5-5.0); Calcium 9.4 mg/dL (8.4-10.2); Potassium 4.3 mmol/L (3.5-5.1); Total Bilirubin 1.2 mg/dL (0.2-1.3); Total Protein 6.5 g/dL (6.3-8.2)
[2022-02-21] MEDS ORDERED: VANCOMYCIN IV PER PHARMACY 1 EACH MISC MISCELLANE PRN (18:47)
[2022-02-21] MEDS ORDERED: NALOXONE 0.4 MG/ML 1 ML VIAL IV PRN (18:49)
[2022-02-21] MEDS ORDERED: ACETAMINOPHEN TAB 325 MG TAB PO PRN (18:49)
[2022-02-21] MEDS ORDERED: VANCOMYCIN 1,250 MG in SODIUM CHLORIDE 0.9% 250 ML IVPB STA (18:51)
[2022-02-21] MEDS: AMPICILLIN-SULBACTAM 1.5 GM in SODIUM CHLORIDE 0.9% 50 ML IVPB SCH (21:03)
[2022-02-22] MEDS: AMPICILLIN-SULBACTAM 1.5 GM in SODIUM CHLORIDE 0.9% 50 ML IVPB SCH ×4 (01:46→19:32)
[2022-02-22 05:55] LABS: African American GFR (CKD) 51 (>60 ml/min/1.73 sqM); Anion Gap 5 mmol/L; Blood Urea Nitrogen 13 mg/dL (7-17); Calcium 9.1 mg/dL (8.4-10.2); Carbon Dioxide 27 mmol/L (22-30); Chloride 107 mmol/L (98-107); Glucose 201 mg/dL (74-99); Non-African American GFR(CKD) 44 (>60 ml/min/1.73 sqM); Potassium 3.9 mmol/L (3.5-5.1); Sodium 139 mmol/L (137-145)
[2022-02-22] MEDS ORDERED: VANCOMYCIN 1,250 MG in SODIUM CHLORIDE 0.9% 250 ML IVPB ONE (09:00)
--- NOTE | 2022-02-22 12:36 | P.GSCN ---
History of Present Illness Consult date: 02/22/22 Reason for Consult: Nonhealing wound, possible osteomyelitis Requesting physician: Conner Warren History of present illness: This is a pleasant 82-year-old female with a past medical history including CVA approximately 17 years ago with residual left-sided paralysis, atrial fibrillation Eliquis, heart failure, hyperlipidemia, hypertension, liver disease, renal disease, thyroid disorder, thyroid cancer, of recent fall with left hip fracture and former smoker who presented to the emergency department as directed by the wound care center yesterday. Patient has chronic wounds to her left foot that she states has been there since November. She has been following with the [facility] wound care center weekly as well as having home care nursing out to the house weekly. Apparently within the last week she started getting increased redness, swelling and within the last 1-2 days duration a foul odor. Patient states she has pain in that foot and leg. She denies any fevers or chills, no abdominal pain, nausea or vomiting. Denies any shortness of breath or chest pain. She has been afebrile. Patient has had appointment scheduled with Dr. Andrew in the outpatient setting however this has been rescheduled. She is scheduled to see him next week . Vascular surgery was consulted for nonhealing diabetic ulcer, concern for osteomyelitis. X-ray of left foot reports diffuse soft tissue swelling. Calcaneal spurring. Erosions at the first MTP joint. Appears to be some soft tissue ulceration and osteomyelitis should be considered. 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 There is at least one vessel crossing the ankles bilaterally, on right the posterior tibial artery and the left anterior temporal artery. Superficial wound involving the left foot medial aspect of first digit middle tarsal phalangeal joint with focus of gas within the first metatarsal which may represent dry gangrene changes. Review of Systems A 14 point review systems was completed all pertinent positives and negatives as stated in the HPI. Past Medical History Past Medical History: Atrial Fibrillation, Cancer, Heart Failure, CVA/TIA, Diabetes Mellitus, Hyperlipidemia, Hypertension, Liver Disease, Pneumonia, Renal Disease, Supraventricular Tachycardia (SVT), Thyroid Disorder Additional Past Medical History / Comment(s): Pt recently admitted on 09/14/21 to [facility] with fall with L hip fracture/surgery, SVT with CHF and had coffee ground emesis during stay. 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 History of Any Multi-Drug Resistant Organisms: None Reported Past Surgical History: Adenoidectomy, Appendectomy, Cholecystectomy, Hysterectomy, Orthopedic Surgery, Tonsillectomy Additional Past Surgical History / Comment(s): 09/18/21 ORIF L hip, bilateral knee arthrotomies, total thyroidectomy, bilateral cataract surgery. Past Anesthesia/Blood Transfusion Reactions: No Reported Reaction Past Psychological History: Depression Additional Psychological History / Comment(s): Pt currently at [facility] for rehab. Pt is normally able to transfer to wheelchair. Smoking Status: Former smoker Past Alcohol Use History: None Reported Additional Past Alcohol Use History / Comment(s): Pt started smoking in 1957 and quit in 2005 Past Drug Use History: None Reported - Past Family History Mother Family Medical History: Diabetes Mellitus Son(s) Family Medical History: Cancer Additional Family Medical History / Comment(s): brain tumor Father Family Medical History: Diabetes Mellitus Medications and Allergies Home Medications Medication Instructions Recorded Confirmed Type Benazepril [Lotensin] 5 mg PO DAILY 06/11/15 02/21/22 History Metoprolol Tartrate 12.5 mg PO BID 06/11/15 02/21/22 History Oxybutynin Chloride 5 mg PO BID 06/11/15 02/21/22 History Levothyroxine Sodium [Synthroid] 75 mcg PO DAILY 09/14/21 02/21/22 History Pantoprazole [Protonix] 40 mg PO BID 10/27/21 02/21/22 History metFORMIN HCL [Glucophage] 500 mg PO DAILY 10/27/21 02/21/22 History Apixaban [Eliquis] 2.5 mg PO BID 02/21/22 02/21/22 History Insulin Glargine,Hum.rec.anlog 10 unit SQ HS 02/21/22 02/21/22 History [Lantus Solostar Pen] Allergies Allergy/AdvReac Type Severity Reaction Status Date / Time No Known Allergies Allergy Verified 02/21/22 19:18 Surgical - Exam Vital Signs Temp Pulse Resp BP Pulse Ox 97.7 F 65 18 173/60 95 02/21/22 14:19 02/21/22 14:19 02/21/22 14:19 02/21/22 14:19 02/21/22 14:19 General appearance: The patient is alert, oriented, appears in no acute distress. HET: Head is normocephalic and atraumatic. Pupils are equal and reactive. Neck: Supple without lymphadenopathy. Trachea midline. Heart: Regular. Lungs: Normal expansion, normal respiratory effort. Abdomen: Soft, nontender, nondistended. Extremities: Bilateral palpable femoral pulses. Right lower extremity without any swelling or edema, multiphasic popliteal, PT Doppler signal. Unable to ob tain dorsalis pedis signal. Left lower extremity with positive popliteal, PT and DP signal. Left lower extremity with edema and redness, on multiple wounds on left foot. Diabetic ulcer on the lateral side of great toe with nonviable tissue, foul odor. Second and third toe with ulceration, and lateral side of the left foot. Patient is very tender to palpation. Neurological: Patient has had previous CVA with left upper and lower extremity paralysis. Results - Labs 02/21/22 18:16 02/22/22 05:13 Abnormal Lab Results - Last 24 Hours (Table) 02/21/22 02/21/22 02/22/22 Range/Units 18:16 18:16 05:13 RDW 16.3 H (11.5-15.5) % Carbon Dioxide 31 H (22-30) mmol/L Creatinine 1.20 H 1.18 H (0.52-1.04) mg/dL Glucose 173 H 201 H (74-99) mg/dL AST 11 L (14-36) U/L Albumin 3.4 L (3.5-5.0) g/dL Microbiology - Last 24 Hours (Table) 02/21/22 19:07 Gram Stain - Preliminary Foot - Left Wound Culture - Preliminary Diabetes panel 02/21/22 02/22/22 Range/Units 18:16 05:13 Sodium 141 139 (137-145) mmol/L Potassium 4.3 3.9 (3.5-5.1) mmol/L Chloride 104 107 (98-107) mmol/L Carbon Dioxide 31 H 27 (22-30) mmol/L BUN 14 13 (7-17) mg/dL Creatinine 1.20 H 1.18 H (0.52-1.04) mg/dL Glucose 173 H 201 H (74-99) mg/dL Calcium 9.4 9.1 (8.4-10.2) mg/dL AST 11 L (14-36) U/L ALT 8 (4-34) U/L Alkaline Phosphatase 82 (38-126) U/L Total Protein 6.5 (6.3-8.2) g/dL Albumin 3.4 L (3.5-5.0) g/dL Calcium panel 02/21/22 02/22/22 Range/Units 18:16 05:13 Calcium 9.4 9.1 (8.4-10.2) mg/dL Albumin 3.4 L (3.5-5.0) g/dL Pituitary panel 02/21/22 02/22/22 Range/Units 18:16 05:13 Sodium 141 139 (137-145) mmol/L Potassium 4.3 3.9 (3.5-5.1) mmol/L Chloride 104 107 (98-107) mmol/L Carbon Dioxide 31 H 27 (22-30) mmol/L BUN 14 13 (7-17) mg/dL Creatinine 1.20 H 1.18 H (0.52-1.04) mg/dL Glucose 173 H 201 H (74-99) mg/dL Calcium 9.4 9.1 (8.4-10.2) mg/dL Adrenal panel 02/21/22 02/22/22 Range/Units 18:16 05:13 Sodium 141 139 (137-145) mmol/L Potassium 4.3 3.9 (3.5-5.1) mmol/L Chloride 104 107 (98-107) mmol/L Carbon Dioxide 31 H 27 (22-30) mmol/L BUN 14 13 (7-17) mg/dL Creatinine 1.20 H 1.18 H (0.52-1.04) mg/dL Glucose 173 H 201 H (74-99) mg/dL Calcium 9.4 9.1 (8.4-10.2) mg/dL Total Bilirubin 1.2 (0.2-1.3) mg/dL AST 11 L (14-36) U/L ALT 8 (4-34) U/L Alkaline Phosphatase 82 (38-126) U/L Total Protein 6.5 (6.3-8.2) g/dL Albumin 3.4 L (3.5-5.0) g/dL Assessment and Plan Assessment: 1. Chronic nonhealing left diabetic foot ulcers 2. Bilateral SFA occlusion with reconstitution 3. Diabetes mellitus 4. Former smoker 5. History of CVA with left-sided paralysis 6. History of atrial fibrillation on Eliquis Plan: 1. Antibiotics per recommendations from infectious disease 2. Consistent carbohydrate diet 3. Wound culture currently pending 4. Blood cultures pending 5. Surgical options discussed with patient and daughter including angiogram, possible bypass, possible left [id number] amputation, and no surgical intervention at all. Patient and daughter want to discuss further. There is no emergency or urgency to any vascular surgical intervention at this time. Continue with local wound care. Thank you for this consultation, we will continue to follow. The impression and plan of care has been dictated as directed. Dr. Wesley I performed a history and examination of this patient, discussed the same with the dictator. I agree with the dictator's note ,documented as a scribe. Any additional findings or plans will be noted.
[2022-02-22] MEDS: APIXABAN 2.5 MG TABLET PO SCH (20:43)
[2022-02-22 20:44] LABS: Glucose,Whole Blood 296 mg/dL (70-110)
[2022-02-22] MEDS: PANTOPRAZOLE 40 MG TABLET PO SCH (20:44)
[2022-02-22] MEDS: INSULIN DETEMIR (LEVEMIR) 100 UNIT/ML SYR SQ SCH (20:44)
[2022-02-22] MEDS: METOPROLOL TARTRATE 12.5 MG TAB PO SCH (20:44)
[2022-02-22] MEDS: OXYBUTYNIN CHLORIDE 5 MG TAB PO SCH (21:06)
[2022-02-23] MEDS: AMPICILLIN-SULBACTAM 1.5 GM in SODIUM CHLORIDE 0.9% 50 ML IVPB SCH ×4 (01:34→21:14)
[2022-02-23] MEDS: LEVOTHYROXINE 75 MCG TAB PO SCH (06:07)
[2022-02-23 08:25] LABS: Glucose,Whole Blood 77 mg/dL (70-110)
--- NOTE | 2022-02-23 08:32 | P.CONS ---
History of Present Illness - Reason for Consult Consult date: 02/22/22 - History of Present Illness Patient is a 82-year-old female with a past medical history significant for CVA in this patient who did have residual left-sided paralysis patient also have a history of hypertension hyperlipidemia atrial fibrillation on Eliquis patient to have a chronic wound to her left foot for the patient is evaluated at [facility] wound care center on a weekly basis patient who did have a wound at the base of her left big toe which apparently has been getting worse and the patient started having increasing pain and foul-smelling drainage patient described the pain to be more of a dull aching 5-6 or 10 no radiation with the symptom the patient has been evaluated on arrival to the ER the patient was afebrile patient did have a normal white count creatinine was mildly elevated blood cultures obtained which are currently pending patient did have a x-ray of the left foot which did show diffuse soft tissue swelling erosion at the first MP joint appears to be some soft tissue ulceration osteomyelitis should be considered patient was started on Unasyn and vancomycin infectious disease was consulted for further management of antibiotic therapy Past Medical History Past Medical History: Atrial Fibrillation, Cancer, Heart Failure, CVA/TIA, Diabetes Mellitus, Hyperlipidemia, Hypertension, Liver Disease, Pneumonia, Renal Disease, Supraventricular Tachycardia (SVT), Thyroid Disorder Additional Past Medical History / Comment(s): Pt recently admitted on 09/14/21 to [facility] with fall with L hip fracture/surgery, SVT with CHF and had coffee ground emesis during stay. 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 History of Any Multi-Drug Resistant Organisms: None Reported Past Surgical History: Adenoidectomy, Appendectomy, Cholecystectomy, Hysterectomy, Orthopedic Surgery, Tonsillectomy Additional Past Surgical History / Comment(s): 09/18/21 ORIF L hip, bilateral knee arthrotomies, total thyroidectomy, bilateral cataract surgery. Past Anesthesia/Blood Transfusion Reactions: No Reported Reaction Past Psychological History: Depression Additional Psychological History / Comment(s): Pt currently at [facility] for rehab. Pt is normally able to transfer to wheelchair. Smoking Status: Former smoker Past Alcohol Use History: None Reported Additional Past Alcohol Use History / Comment(s): Pt started smoking in 1958 and quit in 2005 Past Drug Use History: None Reported - Past Family History Mother Family Medical History: Diabetes Mellitus Son(s) Family Medical History: Cancer Additional Family Medical History / Comment(s): brain tumor Father Family Medical History: Diabetes Mellitus Medications and Allergies Home Medications Medication Instructions Recorded Confirmed Type Benazepril [Lotensin] 5 mg PO DAILY 06/11/15 02/21/22 History Metoprolol Tartrate 12.5 mg PO BID 06/11/15 02/21/22 History Oxybutynin Chloride 5 mg PO BID 06/11/15 02/21/22 History Levothyroxine Sodium [Synthroid] 75 mcg PO DAILY 09/14/21 02/21/22 History Pantoprazole [Protonix] 40 mg PO BID 10/27/21 02/21/22 History metFORMIN HCL [Glucophage] 500 mg PO DAILY 10/27/21 02/21/22 History Apixaban [Eliquis] 2.5 mg PO BID 02/21/22 02/21/22 History Insulin Glargine,Hum.rec.anlog 10 unit SQ HS 02/21/22 02/21/22 History [Lantus Solostar Pen] Allergies Allergy/AdvReac Type Severity Reaction Status Date / Time No Known Allergies Allergy Verified 02/21/22 19:18 Physical Exam Vitals: Vital Signs Temp Pulse Pulse Resp BP BP Pulse Ox 02/22/22 05:06 98.6 F 71 14 158/73 94 L 02/22/22 01:52 167/64 02/21/22 22:10 97.5 F L 77 18 169/67 90 L 02/21/22 18:54 66 18 171/69 95 02/21/22 14:19 97.7 F 65 18 173/60 95 Intake and Output 02/21/22 02/22/22 02/22/22 22:59 06:59 14:59 Other: Voiding Method External Catheter # Voids 2 Weight 67.132 kg Results CBC & Chem 7: 02/21/22 18:16 02/23/22 06:54 Labs: Abnormal Lab Results - Last 24 Hours (Table) 02/21/22 02/21/22 02/22/22 Range/Units 18:16 18:16 05:13 RDW 16.3 H (11.5-15.5) % Carbon Dioxide 31 H (22-30) mmol/L Creatinine 1.20 H 1.18 H (0.52-1.04) mg/dL Glucose 173 H 201 H (74-99) mg/dL AST 11 L (14-36) U/L Albumin 3.4 L (3.5-5.0) g/dL Microbiology - Last 24 Hours (Table) 02/21/22 19:07 Gram Stain - Preliminary Foot - Left Wound Culture - Preliminary Assessment and Plan Plan: 1patient with the nonhealing wound at the base of the first metatarsophalangeal joint with a foul-smelling drainage abnormality seen on the plain x-ray concerning for osteomyelitis. 2patient will benefit from surgical debridement versus amputation, the vascular surgery is already on the case and they have discussed the option with the family. 3cultures will be followed. 4patient to continue vancomycin and Unasyn while waiting for the culture to finalize. We will follow on clinical condition and cultures to further adjust medication if needed Thank you for this consultation will follow this patient along with you Time with Patient: Less than 30
[2022-02-23] MEDS: VANCOMYCIN 1,250 MG in SODIUM CHLORIDE 0.9% 250 ML IVPB SCH (08:49)
[2022-02-23] MEDS: OXYBUTYNIN CHLORIDE 5 MG TAB PO SCH ×2 (10:56→21:21)
[2022-02-23] MEDS: APIXABAN 2.5 MG TABLET PO SCH ×2 (10:56→21:14)
[2022-02-23] MEDS: PANTOPRAZOLE 40 MG TABLET PO SCH ×2 (10:56→21:14)
[2022-02-23] MEDS: METOPROLOL TARTRATE 12.5 MG TAB PO SCH ×2 (10:56→21:14)
[2022-02-23] MEDS: lisinopriL 5 MG TAB PO SCH (10:58)
--- NOTE | 2022-02-23 11:53 | P.PN ---
Subjective Progress Note Date: 02/23/22 Principal diagnosis: Left lower extremity SFA occlusion, nonhealing foot wounds Patient is seen and examined today in follow-up. She is sitting up in the recliner. Her daughter is at the bedside. She denies any fevers or chills. Denies any acute changes through the night. She's been afebrile. She continues to have pain in the left leg and foot. She currently states she just wants to go home with antibiotics. She however has not come to a complete decision. Objective - Vital Signs Vital signs: Vital Signs Temp 98.2 F 02/23/22 04:35 Pulse 65 02/23/22 04:35 Resp 16 02/23/22 04:35 BP 164/61 02/23/22 04:35 Pulse Ox 91 L 02/23/22 04:35 FiO2 Intake & Output 02/22/22 02/23/22 02/23/22 18:59 06:59 18:59 Intake Total 350 Output Total 2 Balance 350 -2 Intake: Intake, IV Titration 350 Amount Ampicillin-Sulbactam 1.5 100 gm In Sodium Chloride 0.9 % 50 ml @ 100 mls/hr IVPB Q6H [facility] Rx#:[id number] Vancomycin 1,250 mg In 250 Sodium Chloride 0.9% 250 ml @ 125 mls/hr IVPB Q24HR [facility] Rx#:[id number] Output: Urine 2 Other: Voiding Method Diaper Diaper Bedside Commode External Catheter External Catheter Diaper Incontinent - Exam General appearance: The patient is alert, oriented, appears in no acute distress. HET: Head is normocephalic and atraumatic. Pupils are equal and reactive. Neck: Supple without lymphadenopathy. Trachea midline. Heart: Regular. Lungs: Normal expansion, normal respiratory effort. Abdomen: Soft, nontender, nondistended. Extremities: Bilateral palpable femoral pulses. Right lower extremity without any swelling or edema, multiphasic popliteal, PT Doppler signal. Unable to obtain dorsalis pedis signal. Left lower extremity with positive popliteal, PT and DP signal. Left lower extremity with edema and redness, on multiple wounds on left foot. Diabetic ulcer on the lateral side of great toe with nonviable tissue, foul odor. Second and third toe with ulceration, and lateral side of the left foot. Patient is very tender to palpation. Neurological: Patient has had previous CVA with left upper and lower extremity paralysis. - Labs CBC & Chem 7: 02/21/22 18:16 02/23/22 06:54 Labs: Abnormal Lab Results - Last 24 Hours (Table) 02/22/22 Range/Units 20:43 POC Glucose (mg/dL) 296 H (70-110) mg/dL Microbiology - Last 24 Hours (Table) 02/21/22 19:05 Blood Culture - Preliminary Blood No Growth after 24 hours 02/21/22 19:03 Blood Culture - Preliminary Blood No Growth after 24 hours 02/21/22 19:07 Gram Stain - Preliminary Foot - Left Wound Culture - Preliminary Assessment and Plan Assessment: 1. Chronic nonhealing left diabetic foot ulcers, with dry gangrene 2. Bilateral SFA occlusion with reconstitution 3. Diabetes mellitus 4. Former smoker 5. History of CVA with left-sided paralysis 6. History of atrial fibrillation on Eliquis Plan: 1. Antibiotics per recommendations from infectious disease 2. Consistent carbohydrate diet 3. Wound culture currently pending 4. Blood cultures pending 5. Surgical options discussed with patient and daughter again today including angiogram, possible bypass, possible left hlbix-toe-cxnq amputation, and no surgical intervention at all. Patient and daughter want to discuss further. There is no emergency or urgency to any vascular surgical intervention at this time. Continue with local wound care. Thank you for this consultation, we will continue to follow. The impression and plan of care has been dictated as directed. Dr. Andrew I performed a history and examination of this patient, discussed the same with the dictator. I agree with the dictator's note ,documented as a scribe. Any a dditional findings or plans will be noted.
--- NOTE | 2022-02-23 12:17 | PN ---
PROGRESS NOTE DATE OF SERVICE: 02/22/2022 CHIEF COMPLAINT: Infected diabetic ulcers of the right foot with osteomyelitis. HISTORY OF PRESENT ILLNESS: This lady is doing fairly well. Dressings are being changed. The wounds are quite malodorous. PHYSICAL EXAMINATION: The foot is slightly hyperemic. Ulcers are the same. IMPRESSION: 1. Osteomyelitis of the right foot with diabetic ulcers. 2. Polycystic ovarian disease. PLAN: Await recommendations from Vascular Surgery and Infectious Disease. MMODL / IJN: [id number] /
--- NOTE | 2022-02-23 12:23 | PN ---
PROGRESS NOTE DATE OF SERVICE: 02/23/2022 CHIEF COMPLAINT: Multiple necrotic ulcers of the right foot and PVOD. HISTORY OF PRESENT ILLNESS: This lady has been stable and there are no new changes in her symptoms. PHYSICAL EXAMINATION: CHEST: Clear. CARDIAC: Normal. EXTREMITIES: The foot is unchanged. IMPRESSION: 1. Multiple necrotic ulcers of the right foot. 2. Diabetes. 3. PVOD. PLAN: Await further recommendations. This lady is a candidate for amputation based on her vascular compromise of the fact that she is nonambulatory. MMODL / IJN: [id number] /
--- NOTE | 2022-02-23 12:44 | HP ---
HISTORY AND PHYSICAL CHIEF COMPLAINT: Diabetic ulcers of the right foot and osteomyelitis. HISTORY OF PRESENT ILLNESS: [facility] She has had longstanding history of ulcers of the right foot. She was in the assisted and has been getting care at home, but the ulcers are getting worse and becoming more necrotic. REVIEW OF SYSTEMS: She denies any chills, fever, etc. She is nonambulatory. Past medical history, family history, personal and social histories are unremarkable otherwise. PHYSICAL EXAMINATION: VITAL SIGNS: Blood pressure 136/86 with a pulse of 83, respirations of 20, and she is afebrile. GENERAL: She appeared to be in no acute distress. HEAD, EARS, EYES, NOSE, MOUTH AND THROAT: Normal. CHEST: Clear. CARDIAC: Normal. ABDOMEN: Soft, nontender. EXTREMITIES: Right foot is hyperemic and she has a necrotic ulcer on the medial aspect of the left foot in the area of the 1st metatarsal head. She also has a necrotic area on the dorsum of the 2nd toe and one on the left heel. NEUROLOGICAL: She has residual hemiparesis from a prior stroke. IMPRESSION: 1. Infected diabetic ulcers and osteomyelitis of the right foot. 2. PVOD. 3. Previous CVA. 4. Type 2 diabetes. PLAN: 1. Bedrest. 2. IV fluids. 3. Consult Infectious Disease and Vascular Surgery. MMODL / IJN: [id number] /
[2022-02-23 12:59] LABS: Glucose,Whole Blood 125 mg/dL (70-110)
[2022-02-23 17:04] LABS: Glucose,Whole Blood 176 mg/dL (70-110)
[2022-02-23] MEDS ORDERED: DEXTROSE 50% SYRINGE 50 ML IVP PRN ×2 (17:08)
[2022-02-23] MEDS: INSULIN ASPART (NovoLOG) 100 UNIT/ML VIAL SQ SCH ×2 (18:02→21:13)
[2022-02-23 18:04] VITALS: BMI 27.1
[2022-02-23 20:20] LABS: Glucose,Whole Blood 222 mg/dL (70-110)
[2022-02-23] MEDS: INSULIN DETEMIR (LEVEMIR) 100 UNIT/ML SYR SQ SCH (21:13)
[2022-02-24] MEDS: AMPICILLIN-SULBACTAM 1.5 GM in SODIUM CHLORIDE 0.9% 50 ML IVPB SCH ×4 (02:58→21:21)
[2022-02-24] MEDS: LEVOTHYROXINE 75 MCG TAB PO SCH (06:39)
[2022-02-24 07:05] LABS: Glucose,Whole Blood 79 mg/dL (70-110)
[2022-02-24 07:59] LABS: African American GFR (CKD) 59 (>60 ml/min/1.73 sqM); Anion Gap 4 mmol/L; Blood Urea Nitrogen 9 mg/dL (7-17); Calcium 8.7 mg/dL (8.4-10.2); Carbon Dioxide 27 mmol/L (22-30); Chloride 109 mmol/L (98-107); Glucose 83 mg/dL (74-99); Non-African American GFR(CKD) 52 (>60 ml/min/1.73 sqM); Sodium 140 mmol/L (137-145)
[2022-02-24] MEDS: VANCOMYCIN 1,250 MG in SODIUM CHLORIDE 0.9% 250 ML IVPB SCH (08:57)
[2022-02-24] MEDS: METOPROLOL TARTRATE 12.5 MG TAB PO SCH (09:12)
[2022-02-24] MEDS: OXYBUTYNIN CHLORIDE 5 MG TAB PO SCH ×2 (09:13→21:22)
[2022-02-24] MEDS: APIXABAN 2.5 MG TABLET PO SCH (09:13)
[2022-02-24] MEDS: lisinopriL 5 MG TAB PO SCH (09:14)
[2022-02-24] MEDS: PANTOPRAZOLE 40 MG TABLET PO SCH ×2 (09:14→21:22)
[2022-02-24] MEDS: INSULIN ASPART (NovoLOG) 100 UNIT/ML VIAL SQ SCH ×4 (09:36→21:21)
[2022-02-24 12:03] LABS: Glucose,Whole Blood 100 mg/dL (70-110)
[2022-02-24] MEDS: lisinopriL 20 MG TAB PO SCH (12:52)
[2022-02-24] MEDS: METOPROLOL SUCCINATE (ER) 50 MG TAB.ER.24H PO SCH (12:52)
--- NOTE | 2022-02-24 13:38 | P.PN ---
Subjective Progress Note Date: 02/24/22 Principal diagnosis: Left lower extremity SFA occlusion, nonhealing foot wounds Patient was seen and examined today for follow-up. She has been afebrile. Infectious disease is following closely and patient is currently on vancomycin and Unasyn. She continues to have pain in her left foot. Patient's daughter and son are both at the bedside and patient along with family have come to a decision to proceed with left iwjro-ltf-usoz amputation. Objective - Vital Signs Vital signs: Vital Signs Temp 97.6 F 02/24/22 11:46 Pulse 48 L 02/24/22 12:51 Resp 18 02/24/22 11:46 BP 197/75 02/24/22 12:51 Pulse Ox 95 02/24/22 11:46 FiO2 Intake & Output 02/23/22 02/24/22 02/24/22 18:59 06:59 18:59 Intake Total 100 Balance 100 Weight 67.132 kg Intake: Intake, IV Titration 100 Amount Ampicillin-Sulbactam 1.5 100 gm In Sodium Chloride 0.9 % 50 ml @ 100 mls/hr IVPB Q6H [facility] Rx#:[id number] Other: Voiding Method Bedside Commode Bedside Commode Bedside Commode Diaper Diaper Diaper Incontinent Incontinent Incontinent # Voids 1 - Exam General appearance: The patient is alert, oriented, appears in no acute distress. HET: Head is normocephalic and atraumatic. Pupils are equal and reactive. Neck: Supple without lymphadenopathy. Trachea midline. Heart: Regular. Lungs: Normal expansion, normal respiratory effort. Abdomen: Soft, nontender, nondistended. Extremities: Bilateral palpable femoral pulses. Right lower extremity without any swelling or edema, multiphasic popliteal, PT Doppler signal. Left lower extremity with positive popliteal, PT and DP signal. Left lower extremity with edema and redness with multiple wounds on left foot. Neurological: Patient has had previous CVA with left upper and lower extremity paralysis. - Labs CBC & Chem 7: 02/21/22 18:16 02/24/22 07:18 Labs: Abnormal Lab Results - Last 24 Hours (Table) 02/23/22 02/23/22 02/24/22 Range/Units 17:00 20:18 07:18 Chloride (98-107) mmol/L POC Glucose (mg/dL) 176 H 222 H (70-110) mg/dL Hemoglobin A1c 7.8 H (0.0-6.0) % 02/24/22 Range/Units 07:18 Chloride 109 H (98-107) mmol/L POC Glucose (mg/dL) (70-110) mg/dL Hemoglobin A1c (0.0-6.0) % Microbiology - Last 24 Hours (Table) 02/21/22 19:05 Blood Culture - Preliminary Blood No Growth after 48 hours 02/21/22 19:03 Blood Culture - Preliminary Blood No Growth after 48 hours 02/21/22 19:07 Gram Stain - Preliminary Foot - Left Wound Culture - Preliminary Gram Neg Bacilli Presumptive Staph aureus Assessment and Plan Assessment: 1. Chronic nonhealing left diabetic foot ulcers, with dry gangrene 2. Bilateral SFA occlusion with reconstitution 3. Diabetes mellitus 4. Former smoker 5. History of CVA with left-sided paralysis 6. History of atrial fibrillation on Eliquis Plan: 1. Antibiotics per recommendations from infectious disease 2. Consistent carbohydrate diet, nothing by mouth after midnight 3. Wound culture currently pending, preliminary with gram-negative bacilli, presumptive staph aureus 4. Blood cultures pending 5. Hold Eliquis 6. Surgical options discussed with patient, daughter and son again today including angiogram, possible bypass, left kcqqn-nal-syuj amputation, and no surgical intervention at all including risks and benefits of each. Patient has subsided and is agreeable to proceed with a left gyjut-hdw-grpj amputation. This will be scheduled for tomorrow morning. Thank you for this consultation, we will continue to follow. The impression and plan of care has been dictated as directed. Dr. Ware I performed a history and examination of this patient, discussed the same with the dictator. I agree with the dictator's note ,documented as a scribe. Any additional findings or plans will be noted.
[2022-02-24 17:09] LABS: Glucose,Whole Blood 205 mg/dL (70-110)
[2022-02-24 20:38] LABS: Glucose,Whole Blood 211 mg/dL (70-110)
--- NOTE | 2022-02-24 21:12 | PN ---
PROGRESS NOTE DATE OF SERVICE: 02/24/2022 CHIEF COMPLAINT: Multiple infected diabetic ulcers of the right foot with osteomyelitis. HISTORY OF PRESENT ILLNESS: This lady is stable and decision is being made as to what to do for her surgically. It would seem that the most logical way to address this is with a BK amputation assuming that she has adequate arterial input to support healing of the stump. She is feeling fine otherwise. PHYSICAL EXAMINATION: CHEST: Clear. CARDIAC: Normal. EXTREMITIES: The leg is same. IMPRESSION: 1. Infected diabetic ulcers of the right leg. 2. Osteomyelitis. 3. Peripheral vascular disease. 4. History of right-sided cerebrovascular accident with left hemiparesis. 5. Diabetes. PLAN: Await decision by Vascular Surgery. MMODL / IJN: [id number] /
[2022-02-24] MEDS: INSULIN DETEMIR (LEVEMIR) 100 UNIT/ML SYR SQ SCH (21:22)
[2022-02-25] MEDS: AMPICILLIN-SULBACTAM 1.5 GM in SODIUM CHLORIDE 0.9% 50 ML IVPB SCH ×4 (02:10→22:21)
[2022-02-25] MEDS: SODIUM CHLORIDE 0.9% 1,000 ML IV SCH ×2 (06:19→18:40)
[2022-02-25] MEDS: LEVOTHYROXINE 75 MCG TAB PO SCH (06:19)
[2022-02-25 07:12] LABS: Glucose,Whole Blood 62 mg/dL (70-110)
[2022-02-25 07:36] LABS: Glucose,Whole Blood 131 mg/dL (70-110)
[2022-02-25] MEDS: INSULIN ASPART (NovoLOG) 100 UNIT/ML VIAL SQ SCH ×4 (07:48→22:08)
[2022-02-25] MEDS ORDERED: VANCOMYCIN TROUGH DUE 1 EACH MISC MISCELLANE ONE (08:00)
[2022-02-25] MEDS: lisinopriL 20 MG TAB PO SCH (08:19)
[2022-02-25] MEDS ORDERED: PHENYLEPHRINE-0.9% NACL SYG 1,000 MCG/10 ML SYRINGE ONE (10:45)
[2022-02-25] MEDS ORDERED: MIDAZOLAM 2 MG/2 ML VIAL ONE (10:45)
[2022-02-25] MEDS ORDERED: LIDOCAINE 2% INJ 20 MG/ML (2 ML VIAL) ONE (10:45)
[2022-02-25] MEDS ORDERED: fentaNYL (PF) 50 MCG/ML 2 ML AMP ONE (10:45)
[2022-02-25] MEDS ORDERED: PROPOFOL 10 MG/ML 20 ML VIAL IV ONE (10:45)
[2022-02-25] MEDS ORDERED: LACTATED RINGERS 600 ML IV ONE (10:52)
[2022-02-25 11:29] LABS: HCT 37.5 % (37.2-46.3); HGB 11.2 g/dL (12.0-15.0); MCH 24.1 pg (27.0-32.0); MCHC 29.9 g/dL (32.0-37.0); MCV 80.8 fL (80.0-97.0); Mean Platelet Volume 9.7 fL (9.5-12.2); NRBC Per 100 WBC 0 /100 WBCS (0.0-0.0); Platelet Count 377 X 10*3/uL (140-440); RBC 4.64 X 10*6/uL (4.10-5.20); RDW 17.5 % (11.5-14.5); WBC 8.68 X 10*3/uL (4.50-10.00)
--- NOTE | 2022-02-25 12:16 | P.OP ---
Date of Procedure: 02/25/22 Description of Procedure: Preoperative diagnosis: Nonhealing left lower extremity wound with gangrene, ischemic contracture at left knee, nonambulatory Postoperative diagnosis: Same Procedure: Left Above-knee amputation Surgeon: Whitney Wesley D.O. Anesthesia: General endotracheal EBL: 50 mL IV fluids: See records Urine output: 100 Drains: None Complications: None immediately apparent Condition: Stable to recovery Operative indication and findings: The patient is an 82-year-old female with a significant left lower extremity wound and gangrene with exposed bone. She has a contracture of her left lower extremity and is nonambulatory. Given these findings long discussion was had regarding possible plans going forward and the patient elected to undergo above-knee amputation. Risks and benefits were discussed including but not limited to bleeding, infection, cardiopulmonary issues. The patient seemingly understood and was willing to proceed Procedure in detail: The patient was taken to the operative suite and placed in supine position. After adequate anesthesia, the left lower extremity was prepped and draped in usual sterile fashion. A preprocedure timeout was performed, all parties were in agreement. Skin marker was utilized and the incision was marked approximately 5 cm proximal to the knee joint. Skin incision was performed and deepened through the subcutaneous tissues to the muscular fascia. The saphenous vein was identified and ligated with 2-0 silk and divided. The muscle groups of the anterior and medial thigh were divided with electrocautery at the same level of the skin incision. The neurovascular bundle was identified on the medial aspect of the thigh. The artery and veins were isolated and suture ligated using 2-0 silk ligature. The sciatic nerve was pulled on stretch and ligated with 2-0 silk tie and divided. The femur was then cleared of its periosteal tissue is elevated roughly 5 cm proximally and was divided with the oscillating saw. The posterior thigh muscles were then divided with electrocautery. The proximal end of the transected femur was smoothed with a rasp. The amputation site was then copiously irrigated. Hemostasis was controlled with electrocautery. The periosteum was reapproximated using interrupted sutures of 2-0 Vicryl. The fascia was reapproximated with interrupted gsyark-um-[id number] sutures of 2-0 Vicryl. The skin was reapproximated with maya. A dressing with gauze, Kerlix and a bandage were placed. The p atient tolerated the procedure well and was transported to PACU in stable condition
[2022-02-25] MEDS: OXYBUTYNIN CHLORIDE 5 MG TAB PO SCH ×2 (13:41→22:21)
[2022-02-25] MEDS ORDERED: VANCOMYCIN 1,000 MG in SODIUM CHLORIDE 0.9% 250 ML IVPB SCH (14:00)
[2022-02-25 14:18] LABS: Anisocytosis Slight; HCT 37.8 % (34.0-46.0); HGB 11.5 gm/dL (11.4-16.0); Hypochromasia Marked; MCH 25.4 pg (25.0-35.0); MCHC 30.4 g/dL (31.0-37.0); MCV 83.5 fL (80.0-100.0); Mean Platelet Volume 7.4; Platelet Count 307 k/uL (150-450); RBC 4.53 m/uL (3.80-5.40); RDW 16.5 % (11.5-15.5); WBC 7.5 k/uL (3.8-10.6)
[2022-02-25 14:55] LABS: African American GFR (CKD) 66 (>60 ml/min/1.73 sqM); Anion Gap 3 mmol/L; Blood Urea Nitrogen 15 mg/dL (7-17); Calcium 9.2 mg/dL (8.4-10.2); Carbon Dioxide 27 mmol/L (22-30); Chloride 110 mmol/L (98-107); Glucose 128 mg/dL (74-99); Non-African American GFR(CKD) 58 (>60 ml/min/1.73 sqM); Potassium 3.7 mmol/L (3.5-5.1); Sodium 140 mmol/L (137-145)
[2022-02-25 15:24] LABS: Glucose,Whole Blood 90 mg/dL (70-110)
[2022-02-25] MEDS: METOPROLOL SUCCINATE (ER) 50 MG TAB.ER.24H PO SCH (15:26)
[2022-02-25] MEDS: hydrALAZINE HCL 10 MG TAB PO SCH ×2 (15:29→22:21)
[2022-02-25] MEDS: PANTOPRAZOLE 40 MG TABLET PO SCH ×2 (15:33→22:21)
[2022-02-25] MEDS: VANCOMYCIN 1,250 MG in SODIUM CHLORIDE 0.9% 250 ML IVPB SCH (16:43)
[2022-02-25] MEDS ORDERED: MORPHINE SULFATE 2 MG/ML SYRINGE IVP PRN (16:48)
[2022-02-25] MEDS: HYDROcodone/APAP 5-325MG 1 EACH TAB PO PRN (16:53)
[2022-02-25 20:17] LABS: Glucose,Whole Blood 72 mg/dL (70-110)
[2022-02-25] MEDS: INSULIN DETEMIR (LEVEMIR) 100 UNIT/ML SYR SQ SCH (22:08)
[2022-02-26] MEDS: AMPICILLIN-SULBACTAM 1.5 GM in SODIUM CHLORIDE 0.9% 50 ML IVPB SCH ×4 (03:32→20:39)
[2022-02-26 06:13] LABS: Glucose,Whole Blood 89 mg/dL (70-110)
[2022-02-26] MEDS: HYDROcodone/APAP 5-325MG 1 EACH TAB PO PRN ×3 (06:29→22:49)
[2022-02-26] MEDS: LEVOTHYROXINE 75 MCG TAB PO SCH (06:30)
[2022-02-26] MEDS: INSULIN ASPART (NovoLOG) 100 UNIT/ML VIAL SQ SCH ×4 (06:32→20:43)
[2022-02-26] MEDS: METOPROLOL SUCCINATE (ER) 50 MG TAB.ER.24H PO SCH (09:06)
[2022-02-26] MEDS: SODIUM CHLORIDE 0.9% 1,000 ML IV SCH ×2 (09:06→20:43)
[2022-02-26] MEDS: lisinopriL 20 MG TAB PO SCH (09:06)
[2022-02-26] MEDS: PANTOPRAZOLE 40 MG TABLET PO SCH ×2 (09:06→20:40)
[2022-02-26] MEDS: OXYBUTYNIN CHLORIDE 5 MG TAB PO SCH ×2 (09:06→20:40)
[2022-02-26] MEDS: hydrALAZINE HCL 10 MG TAB PO SCH ×3 (11:21→20:40)
[2022-02-26 12:14] LABS: Glucose,Whole Blood 104 mg/dL (70-110)
[2022-02-26 12:57] LABS: Anisocytosis Slight; Basophils % (A) 0 %; Eosinophils # (A) 0.1 k/uL (0-0.7); Eosinophils % (A) 1 %; HCT 35.3 % (34.0-46.0); HGB 10.9 gm/dL (11.4-16.0); Hypochromasia Marked; Lymphocytes # (A) 1.6 k/uL (1.0-4.8); Lymphocytes % (A) 17 %; Monocytes # (A) 0.9 k/uL (0-1.0); Monocytes % (A) 10 %; Neutrophils # (A) 6.2 k/uL (1.3-7.7); Neutrophils % (A) 69 %; Platelet Count 291 k/uL (150-450); RDW 16.7 % (11.5-15.5); WBC 9.1 k/uL (3.8-10.6)
[2022-02-26 13:06] LABS: Albumin 2.3 g/dL (3.5-5.0); Calcium 8.4 mg/dL (8.4-10.2); Potassium 3.9 mmol/L (3.5-5.1); Total Bilirubin 0.8 mg/dL (0.2-1.3)
[2022-02-26 16:58] LABS: Glucose,Whole Blood 132 mg/dL (70-110)
[2022-02-26 20:14] LABS: Glucose,Whole Blood 176 mg/dL (70-110)
[2022-02-26] MEDS: INSULIN DETEMIR (LEVEMIR) 100 UNIT/ML SYR SQ SCH (20:44)
[2022-02-27] MEDS: AMPICILLIN-SULBACTAM 1.5 GM in SODIUM CHLORIDE 0.9% 50 ML IVPB SCH ×4 (02:03→20:41)
[2022-02-27] MEDS: LEVOTHYROXINE 75 MCG TAB PO SCH (06:05)
[2022-02-27 06:23] LABS: Glucose,Whole Blood 111 mg/dL (70-110)
[2022-02-27] MEDS: INSULIN ASPART (NovoLOG) 100 UNIT/ML VIAL SQ SCH ×4 (06:23→20:42)
[2022-02-27] MEDS: METOPROLOL SUCCINATE (ER) 50 MG TAB.ER.24H PO SCH (07:44)
[2022-02-27] MEDS: hydrALAZINE HCL 10 MG TAB PO SCH ×3 (07:44→20:41)
[2022-02-27] MEDS: OXYBUTYNIN CHLORIDE 5 MG TAB PO SCH ×2 (07:44→20:41)
[2022-02-27] MEDS: PANTOPRAZOLE 40 MG TABLET PO SCH ×2 (07:44→20:40)
[2022-02-27] MEDS: lisinopriL 20 MG TAB PO SCH (07:44)
--- NOTE | 2022-02-27 08:14 | P.PN ---
Subjective Progress Note Date: 02/23/22 Principal diagnosis: Left foot wound infection Patient is a 82-year-old female with a past medical history significant for CVA in this patient who did have residual left-sided paralysis patient also have a history of hypertension hyperlipidemia atrial fibrillation on Eliquis patient to have a chronic wound to her left foot admitted to the hospital with worsening and concern for infection. On today's evaluation that is 02/24/2022, the patient denies having any fever or any chills, the patient is breathing comfortably no chest pain shortness of breath or cough pain to the left foot wound is currently controlled no worsening and no diarrhea Objective - Vital Signs Vital signs: Vital Signs Temp 97.9 F 02/23/22 11:05 Pulse 75 02/23/22 11:05 Resp 18 02/23/22 11:05 BP 169/64 02/23/22 11:05 Pulse Ox 95 02/23/22 11:05 FiO2 Intake & Output 02/22/22 02/23/22 02/23/22 18:59 06:59 18:59 Intake Total 350 Output Total 2 Balance 350 -2 Intake: Intake, IV Titration 350 Amount Ampicillin-Sulbactam 1.5 100 gm In Sodium Chloride 0.9 % 50 ml @ 100 mls/hr IVPB Q6H [facility] Rx#:[id number] Vancomycin 1,250 mg In 250 Sodium Chloride 0.9% 250 ml @ 125 mls/hr IVPB Q24HR [facility] Rx#:[id number] Output: Urine 2 Other: Voiding Method Diaper Diaper Bedside Commode External Catheter External Catheter Diaper Incontinent - Exam GENERAL DESCRIPTION: An elderly female lying in bed in no distress RESPIRATORY SYSTEM: Unlabored breathing , decreased breath sounds at bases HEART: S1 S2 regular rate and rhythm , ABDOMEN: Soft , no tenderness EXTREMITIES: Left foot wound is currently dressed minimal drainage on the dressing - Labs CBC & Chem 7: 02/26/22 12:43 02/26/22 12:43 Labs: Abnormal Lab Results - Last 24 Hours (Table) 02/22/22 02/23/22 Range/Units 20:43 12:58 POC Glucose (mg/dL) 296 H 125 H (70-110) mg/dL Microbiology - Last 24 Hours (Table) 02/21/22 19:05 Blood Culture - Preliminary Blood No Growth after 24 hours 02/21/22 19:03 Blood Culture - Preliminary Blood No Growth after 24 hours Assessment and Plan (1) Diabetic foot ulcer Current Visit: Yes Status: Acute Code(s): E11.621 - TYPE 2 DIABETES MELLITUS WITH FOOT ULCER; L97.509 - NON-PRESSURE CHRONIC ULCER OTH PRT UNSP FOOT W UNSP SEVERITY SNOMED Code(s): 917197813 Plan: 1patient with the nonhealing wound at the base of the first metatarsophalangeal joint with a foul-smelling drainage abnormality seen on the plain x-ray concerning for osteomyelitis. 2patient will benefit from surgical debridement versus amputation, the vascular surgery is already on the case and they have discussed the option with the family waiting for the final option. 3patient to continue vancomycin and Unasyn while waiting for the culture to finalize. Time with Patient: Less than 30
--- NOTE | 2022-02-27 08:16 | P.PN ---
Subjective Progress Note Date: 02/24/22 Principal diagnosis: Left foot wound infection Patient is a 82-year-old female with a past medical history significant for CVA in this patient who did have residual left-sided paralysis patient also have a history of hypertension hyperlipidemia atrial fibrillation on Eliquis patient to have a chronic wound to her left foot admitted to the hospital with worsening and concern for infection. On today's evaluation that is 02/24/2022, the patient remains to be afebrile, the patient is breathing comfortably on room air, the patient denies chest pain shortness of breath or cough pain to the left foot wound is currently controlled no worsening and no diarrhea Objective - Vital Signs Vital signs: Vital Signs Temp 97.6 F 02/24/22 11:46 Pulse 48 L 02/24/22 12:51 Resp 18 02/24/22 11:46 BP 197/75 02/24/22 12:51 Pulse Ox 95 02/24/22 11:46 FiO2 Intake & Output 02/23/22 02/24/22 02/24/22 18:59 06:59 18:59 Intake Total 100 Balance 100 Weight 67.132 kg Intake: Intake, IV Titration 100 Amount Ampicillin-Sulbactam 1.5 100 gm In Sodium Chloride 0.9 % 50 ml @ 100 mls/hr IVPB Q6H [facility] Rx#:[id number] Other: Voiding Method Bedside Commode Bedside Commode Bedside Commode Diaper Diaper Diaper Incontinent Incontinent Incontinent # Voids 1 - Exam GENERAL DESCRIPTION: An elderly female lying in bed in no distress RESPIRATORY SYSTEM: Unlabored breathing , decreased breath sounds at bases HEART: S1 S2 regular rate and rhythm , ABDOMEN: Soft , no tenderness EXTREMITIES: Left foot wound is currently dressed minimal drainage on the dressing - Labs CBC & Chem 7: 02/26/22 12:43 02/26/22 12:43 Labs: Abnormal Lab Results - Last 24 Hours (Table) 02/23/22 02/23/22 02/24/22 Range/Units 17:00 20:18 07:18 Chloride (98-107) mmol/L POC Glucose (mg/dL) 176 H 222 H (70-110) mg/dL Hemoglobin A1c 7.8 H (0.0-6.0) % 02/24/22 Range/Units 07:18 Chloride 109 H (98-107) mmol/L POC Glucose (mg/dL) (70-110) mg/dL Hemoglobin A1c (0.0-6.0) % Microbiology - Last 24 Hours (Table) 02/21/22 19:05 Blood Culture - Preliminary Blood No Growth after 48 hours 02/21/22 19:03 Blood Culture - Preliminary Blood No Growth after 48 hours 02/21/22 19:07 Gram Stain - Preliminary Foot - Left Wound Culture - Preliminary Gram Neg Bacilli Presumptive Staph aureus Assessment and Plan (1) Diabetic foot ulcer Current Visit: Yes Status: Acute Code(s): E11.621 - TYPE 2 DIABETES MELLITUS WITH FOOT ULCER; L97.509 - NON-PRESSURE CHRONIC ULCER OTH PRT UNSP FOOT W UNSP SEVERITY SNOMED Code(s): 112696220 Plan: 1patient with the nonhealing wound at the base of the first metatarsophalangeal joint with a foul-smelling drainage abnormality seen on the plain x-ray concerning for osteomyelitis. 2patient will benefit from surgical debridement versus amputation, the vascular surgery is already on the case and they have discussed the option with the family and possibly opting for amputation scheduled for tomorrow. 3patient to continue vancomycin and Unasyn and monitor clinical course closely family at the bedside questions were answered Time with Patient: Less than 30
--- NOTE | 2022-02-27 08:18 | P.PN ---
Subjective Progress Note Date: 02/25/22 Principal diagnosis: Left foot wound infection Patient is a 82-year-old female with a past medical history significant for CVA in this patient who did have residual left-sided paralysis patient also have a history of hypertension hyperlipidemia atrial fibrillation on Eliquis patient to have a chronic wound to her left foot admitted to the hospital with worsening and concern for infection. Patient is status post left jiate-yno-[id number] amputation complicated on 02/25/2022 On today's evaluation that is 02/25/2022, the patient continues to be afebrile, the patient is breathing comfortably on nasal cannula oxygen, the patient denies chest pain shortness of breath or cough , the patient pain to the left AKA site is currently controlled Objective - Vital Signs Vital signs: Vital Signs Temp 97.7 F 02/25/22 12:17 Pulse 57 L 02/25/22 12:48 Resp 16 02/25/22 12:48 BP 185/92 02/25/22 12:48 Pulse Ox 100 02/25/22 12:48 FiO2 Intake & Output 02/24/22 02/25/22 02/25/22 18:59 06:59 18:59 Intake Total 700 Output Total 150 Balance 550 Intake: IV 700 Output: Urine 100 Estimated Blood Loss 50 Other: Voiding Method Diaper Diaper Diaper Incontinent Incontinent # Voids 3 2 # Bowel Movements 1 - Exam GENERAL DESCRIPTION: An elderly female lying in bed in no distress RESPIRATORY SYSTEM: Unlabored breathing , decreased breath sounds at bases HEART: S1 S2 regular rate and rhythm , ABDOMEN: Soft , no tenderness EXTREMITIES: Left AKA currently dressed no drainage on the dressing - Labs CBC & Chem 7: 02/26/22 12:43 02/26/22 12:43 Labs: Abnormal Lab Results - Last 24 Hours (Table) 02/24/22 02/24/22 02/25/22 Range/Units 17:01 20:37 07:10 Hgb (12.0-15.0) g/dL MCH (27.0-32.0) pg MCHC (32.0-37.0) g/dL RDW (11.5-14.5) % POC Glucose (mg/dL) 205 H 211 H 62 L (70-110) mg/dL 02/25/22 02/25/22 02/25/22 Range/Units 07:35 07:47 14:03 Hgb 11.2 L (12.0-15.0) g/dL MCH 24.1 L (27.0-32.0) pg MCHC 29.9 L 30.4 L (32.0-37.0) g/dL RDW 17.5 H 16.5 H (11.5-14.5) % POC Glucose (mg/dL) 131 H (70-110) mg/dL Microbiology - Last 24 Hours (Table) 02/21/22 19:05 Blood Culture - Preliminary Blood No Growth after 72 hours 02/21/22 19:03 Blood Culture - Preliminary Blood No Growth after 72 hours 02/21/22 19:07 Gram Stain - Final Foot - Left Wound Culture - Preliminary Escherichia coli Staphylococcus aureus Proteus mirabilis Assessment and Plan (1) Diabetic foot ulcer Current Visit: Yes Status: Acute Code(s): E11.621 - TYPE 2 DIABETES MELLITUS WITH FOOT ULCER; L97.509 - NON-PRESSURE CHRONIC ULCER OTH PRT UNSP FOOT W UNSP SEVERITY SNOMED Code(s): 120092272 (2) Osteomyelitis Current Visit: Yes Status: Acute Code(s): M86.9 - OSTEOMYELITIS, UNSPECIFIED SNOMED Code(s): 71640981 Plan: 1patient with the nonhealing wound at the base of the first metatarsophalangeal joint with a foul-smelling drainage abnormality seen on the plain x-ray concerning for osteomyelitis. 2patient is status post left iftcc-jmo-fnzg amputation with infected part removed patient will not need long-term antibiotic therapy 3patient cultures have been finalized with E. coli MSSA and Proteus, patient to continue with Unasyn we'll discontinue vancomycin
--- NOTE | 2022-02-27 08:23 | P.PN ---
Subjective Progress Note Date: 02/26/22 Principal diagnosis: Left foot wound infection Patient is a 82-year-old female with a past medical history significant for CVA in this patient who did have residual left-sided paralysis patient also have a history of hypertension hyperlipidemia atrial fibrillation on Eliquis patient to have a chronic wound to her left foot admitted to the hospital with worsening and concern for infection. Patient is status post left xpupe-irs-xixs amputation complicated on 02/25/2022 On today's evaluation that is 02/26/2022, the patient remains to be afebrile, the patient is breathing comfortably on nasal cannula oxygen, the patient denies chest pain shortness of breath or cough , the patient pain to the left AKA site is controlled with current medication and no new symptoms Objective - Vital Signs Vital signs: Vital Signs Temp 97.5 F L 02/26/22 13:50 Pulse 86 02/26/22 13:50 Resp 18 02/26/22 13:50 BP 130/61 02/26/22 13:50 Pulse Ox 94 L 02/26/22 13:50 FiO2 Intake & Output 02/26/22 13:59 Intake Total 272 Output Total 950 Balance -678 Intake: Intake, IV Titration Amount Sodium Chloride 0.9% 1, 000 ml @ 75 mls/hr IV . [id number] [facility] Rx#:[id number] Oral 272 Output: Urine 950 Other: Voiding Method External Catheter # Voids - Exam GENERAL DESCRIPTION: An elderly female lying in bed in no distress RESPIRATORY SYSTEM: Unlabored breathing , decreased breath sounds at bases HEART: S1 S2 regular rate and rhythm , ABDOMEN: Soft , no tenderness EXTREMITIES: Left AKA currently dressed no drainage on the dressing - Labs CBC & Chem 7: 02/26/22 12:43 02/26/22 12:43 Labs: Abnormal Lab Results - Last 24 Hours (Table) 02/26/22 02/26/22 02/26/22 Range/Units 12:43 12:43 16:39 Hgb 10.9 L (11.4-16.0) gm/dL RDW 16.7 H (11.5-15.5) % Chloride 111 H (98-107) mmol/L Glucose 107 H (74-99) mg/dL POC Glucose (mg/dL) 132 H (70-110) mg/dL AST 13 L (14-36) U/L Total Protein 5.0 L (6.3-8.2) g/dL Albumin 2.3 L (3.5-5.0) g/dL 02/26/22 02/27/22 Range/Units 20:12 06:19 Hgb (11.4-16.0) gm/dL RDW (11.5-15.5) % Chloride (98-107) mmol/L Glucose (74-99) mg/dL POC Glucose (mg/dL) 176 H 111 H (70-110) mg/dL AST (14-36) U/L Total Protein (6.3-8.2) g/dL Albumin (3.5-5.0) g/dL Microbiology - Last 24 Hours (Table) 02/21/22 19:05 Blood Culture - Preliminary Blood No Growth after 120 hours 02/21/22 19:03 Blood Culture - Preliminary Blood No Growth after 120 hours Assessment and Plan (1) Diabetic foot ulcer Current Visit: Yes Status: Acute Code(s): E11.621 - TYPE 2 DIABETES MELLITUS WITH FOOT ULCER; L97.509 - NON-PRESSURE CHRONIC ULCER OTH PRT UNSP FOOT W UNSP SEVERITY SNOMED Code(s): 518798335 (2) Osteomyelitis Current Visit: Yes Status: Acute Code(s): M86.9 - OSTEOMYELITIS, UNSPECIFIED SNOMED Code(s): 67611370 Plan: 1patient with the nonhealing wound at the base of the first metatarsophalangeal joint with a foul-smelling drainage abnormality seen on the plain x-ray concerning for osteomyelitis. 2patient is status post left ayvyv-oll-uhek amputation with infected part removed patient will not need long-term antibiotic therapy 3patient cultures have been finalized with E. coli MSSA and Proteus, blood cultures has been negative 4-we will continue the short course of Unasyn preoperatively Time with Patient: Less than 30
[2022-02-27] MEDS: SODIUM CHLORIDE 0.9% 1,000 ML IV SCH ×2 (11:39→22:46)
--- NOTE | 2022-02-27 11:55 | P.PN ---
Subjective Progress Note Date: 02/27/22 Patient was seen and examined today as a follow-up. She is postop day #2 for a left vlupg-cci-isws amputation. Patient states her pain has been well managed. She has been afebrile. She denies any fevers, chills, or body aches. She also denies any shortness of breath or chest pain. Objective - Vital Signs Vital signs: Vital Signs Temp 97.5 F L 02/27/22 03:50 Pulse 56 L 02/27/22 11:40 Resp 17 02/27/22 11:40 BP 169/67 02/27/22 11:40 Pulse Ox 93 L 02/27/22 11:40 FiO2 Intake & Output 02/26/22 02/27/22 02/27/22 18:59 06:59 18:59 Intake Total 272 600 0 Output Total 950 400 Balance -678 200 0 Intake: Intake, IV Titration 600 Amount Sodium Chloride 0.9% 1, 600 000 ml @ 75 mls/hr IV . [id number] [facility] Rx#:[id number] Oral 272 0 Output: Urine 950 400 Other: Voiding Method External Catheter External Catheter External Catheter # Voids 1 - Exam General appearance: The patient is alert, oriented, appears in no acute distress. HET: Head is normocephalic and atraumatic. Pupils are equal and reactive. Neck: Supple without lymphadenopathy. Trachea midline. Heart: Regular. Lungs: Normal expansion, normal respiratory effort. Abdomen: Soft, nontender, nondistended. Extremities: Bilateral palpable femoral pulses. Left istuq-fcm-kvwt amputation site well approximated with maya, viable pink skin surrounding without any drainage. Neurological: Patient has had previous CVA with left upper and lower extremity paralysis. - Labs CBC & Chem 7: 02/26/22 12:43 02/27/22 07:55 Labs: Abnormal Lab Results - Last 24 Hours (Table) 02/26/22 02/26/22 02/26/22 Range/Units 12:43 12:43 16:39 Hgb 10.9 L (11.4-16.0) gm/dL RDW 16.7 H (11.5-15.5) % Chloride 111 H (98-107) mmol/L Glucose 107 H (74-99) mg/dL POC Glucose (mg/dL) 132 H (70-110) mg/dL AST 13 L (14-36) U/L Total Protein 5.0 L (6.3-8.2) g/dL Albumin 2.3 L (3.5-5.0) g/dL 02/26/22 02/27/22 Range/Units 20:12 06:19 Hgb (11.4-16.0) gm/dL RDW (11.5-15.5) % Chloride (98-107) mmol/L Glucose (74-99) mg/dL POC Glucose (mg/dL) 176 H 111 H (70-110) mg/dL AST (14-36) U/L Total Protein (6.3-8.2) g/dL Albumin (3.5-5.0) g/dL Microbiology - Last 24 Hours (Table) 02/21/22 19:05 Blood Culture - Preliminary Blood No Growth after 120 hours 02/21/22 19:03 Blood Culture - Preliminary Blood No Growth after 120 hours Assessment and Plan Assessment: 1. Chronic nonhealing left diabetic foot ulcers, with dry gangrene status post left xoxve-paa-ckap amputation 2. Bilateral SFA occlusion with reconstitution 3. Diabetes mellitus 4. Former smoker 5. History of CVA with left-sided paralysis 6. History of atrial fibrillation on Eliquis Plan: 1. Continue with PT and OT 2. Daily dressing change Adaptic, 4 x 4, Kerlix, Kyle wrap 3. Continue with recommendations from infectious disease 4. Patient is clear from vascular surgery for discharge once otherwise medically cleared Thank you for this consultation. The impression and plan of care has been dictated as directed. Dr. Ware I performed a history and examination of this patient, discussed the same with the dictator. I agree with the dictator's note ,documented as a scribe. Any additional findings or plans will be noted.
[2022-02-27 11:56] LABS: Glucose,Whole Blood 132 mg/dL (70-110)
[2022-02-27] MEDS: HYDROcodone/APAP 5-325MG 1 EACH TAB PO PRN (14:53)
[2022-02-27 16:43] LABS: Glucose,Whole Blood 208 mg/dL (70-110)
[2022-02-27 20:20] LABS: Glucose,Whole Blood 185 mg/dL (70-110)
[2022-02-27] MEDS: INSULIN DETEMIR (LEVEMIR) 100 UNIT/ML SYR SQ SCH (20:41)
--- NOTE | 2022-02-27 22:46 | PN ---
PROGRESS NOTE DATE OF SERVICE: 02/26/2022 CHIEF COMPLAINT: Osteomyelitis. HISTORY OF PRESENT ILLNESS: This lady is doing well postoperatively. She has had no fever, no chills, chest pain, confusion, etc. PHYSICAL EXAMINATION: GENERAL: She is awake and alert. CHEST: Clear. CARDIAC: Normal. ABDOMEN: Soft, nontender. EXTREMITIES: She is not having a great deal of discomfort in the stump. IMPRESSION: Status post above-knee amputation for osteomyelitis and . PLAN: No change in program, and she will be getting up and starting to move about before she is discharged. MMODL / IJN: [id number] /
--- NOTE | 2022-02-27 23:41 | PN ---
PROGRESS NOTE DATE OF SERVICE: 02/25/2022 CHIEF COMPLAINT: Osteomyelitis and necrotic ulcers of the foot. HISTORY OF PRESENT ILLNESS: This lady was taken to the operating room and underwent a amputation. She is currently stable. REVIEW OF SYSTEMS: She is having some pain, but it is being controlled. She has had no chest pain, shortness of breath, confusion, etc. PHYSICAL EXAMINATION: CHEST: Clear. CARDIAC: Normal. ABDOMEN: Soft and nontender. EXTREMITIES: Dressing is dry. IMPRESSION: Status post left amputation for osteomyelitis and peripheral vascular disease of the lower extremity. PLAN: Continue to monitor during her hospital stay regarding her vital signs and her blood sugars, and she probably will be able to go home, and avoid rehab. MMODL / IJN: [id number] /
[2022-02-28] MEDS: AMPICILLIN-SULBACTAM 1.5 GM in SODIUM CHLORIDE 0.9% 50 ML IVPB SCH ×2 (01:02→08:54)
[2022-02-28] MEDS: LEVOTHYROXINE 75 MCG TAB PO SCH (05:56)
[2022-02-28] MEDS: hydrALAZINE HCL 10 MG TAB PO SCH (05:56)
[2022-02-28 05:58] LABS: Glucose,Whole Blood 82 mg/dL (70-110)
[2022-02-28] MEDS: INSULIN ASPART (NovoLOG) 100 UNIT/ML VIAL SQ SCH ×2 (05:58→12:16)
--- NOTE | 2022-02-28 06:57 | PN ---
PROGRESS NOTE DATE OF SERVICE: 02/27/2022 CHIEF COMPLAINT: Status post amputation. HISTORY OF PRESENT ILLNESS: This lady is doing well and she has no complaints. We are working toward getting her back home as soon as possible. PHYSICAL EXAMINATION: GENERAL: She is awake and alert. Color is good. Hydration is normal. CHEST: Clear. CARDIAC: Normal. IMPRESSION: Status post above-knee amputation for PVOD and osteomyelitis of the foot. PLAN: Continue with postop care. MMSHAYY / SHANTN: [id number] /
[2022-02-28 08:41] VITALS: BP 164/71; RESP 20; TEMP 98.1
--- NOTE | 2022-02-28 08:44 | P.PN ---
Subjective Progress Note Date: 02/28/22 Principal diagnosis: Left lower extremity SFA occlusion, nonhealing foot wounds she was seen and examined today as a follow-up. She is status post left cmcic-qcm-zegr amputation. Pain has been well managed. She has no acute changes through the night. She's been afebrile. Infectious disease continues to follow patient. Objective - Vital Signs Vital signs: Vital Signs Temp 98.1 F 02/28/22 08:40 Pulse 68 02/28/22 08:40 Resp 20 02/28/22 08:40 BP 164/71 02/28/22 08:40 Pulse Ox 90 L 02/28/22 08:40 FiO2 Intake & Output 02/27/22 02/28/22 02/28/22 18:59 06:59 18:59 Intake Total 236 600 Output Total 200 500 Balance 36 100 Intake: Intake, IV Titration 600 Amount Sodium Chloride 0.9% 1, 600 000 ml @ 75 mls/hr IV . [id number] [facility] Rx#:[id number] Oral 236 Output: Urine 200 500 Other: Voiding Method External Catheter External Catheter - Exam General appearance: The patient is alert, oriented, appears in no acute distress. HET: Head is normocephalic and atraumatic. Pupils are equal and reactive. Neck: Supple without lymphadenopathy. Trachea midline. Heart: Regular. Lungs: Normal expansion, normal respiratory effort. Abdomen: Soft, nontender, nondistended. Extremities: Bilateral palpable femoral pulses. Left urdsp-mrr-txza amputation site with dressing clean dry and intact. Neurological: Patient has had previous CVA with left upper and lower extremity paralysis. - Labs CBC & Chem 7: 02/26/22 12:43 02/27/22 07:55 Labs: Abnormal Lab Results - Last 24 Hours (Table) 02/27/22 02/27/22 02/27/22 Range/Units 11:54 16:42 20:18 POC Glucose (mg/dL) 132 H 208 H 185 H (70-110) mg/dL Microbiology - Last 24 Hours (Table) 02/21/22 19:05 Blood Culture - Final Blood No Growth after 144 hours 02/21/22 19:03 Blood Culture - Final Blood No Growth after 144 hours Assessment and Plan Assessment: 1. Chronic nonhealing left diabetic foot ulcers, with dry gangrene status post left ofbsx-ell-cnow amputation 2. Bilateral SFA occlusion with reconstitution 3. Diabetes mellitus 4. Former smoker 5. History of CVA with left-sided paralysis 6. History of atrial fibrillation on Eliquis Plan: 1. Continue with PT and OT 2. Daily dressing change Adaptic, 4 x 4, Kerlix, Kyle wrap 3. Continue with recommendations from infectious disease 4. Patient is clear from vascular surgery for discharge once otherwise medically cleared. Thank you for this consultation. We will sign off at this time. The impression and plan of care has been dictated as directed. Dr. Ware I performed a history and examination of this patient, discussed the same with the dictator. I agree with the dictator's note ,documented as a scribe. Any additional findings or plans will be noted.
[2022-02-28] MEDS: OXYBUTYNIN CHLORIDE 5 MG TAB PO SCH (08:54)
[2022-02-28] MEDS: PANTOPRAZOLE 40 MG TABLET PO SCH (08:54)
[2022-02-28] MEDS: METOPROLOL SUCCINATE (ER) 50 MG TAB.ER.24H PO SCH (08:54)
[2022-02-28] MEDS: lisinopriL 20 MG TAB PO SCH (08:54)
[2022-02-28 09:06] VITALS: PULSE 72
--- NOTE | 2022-03-03 02:19 | DS ---
DISCHARGE SUMMARY CHIEF COMPLAINT: Infected and necrotic ulcers with osteomyelitis. HISTORY OF PRESENT ILLNESS AND PHYSICAL EXAMINATION: Details of this lady's history and physical can be found in the initial workup. LABORATORY STUDIES: While she was in the hospital, she had laboratory studies, details of which can be found in the laboratory section of her chart. COURSE IN THE HOSPITAL: After admission, she was placed on bedrest and started intravenous fluids and analgesics. She was seen by Vascular Surgery and Infectious Disease. It was determined that the best most appropriate management for her severely involved foot was to do an amputation. She was taken for an AKA amputation, which she tolerated well and after several days, it was determined that she could return home. She has good home care. She is nonambulatory and was sober for the amputation. FINAL DIAGNOSES: 1. Osteomyelitis and infected ulcers of the foot. 2. Previous cerebrovascular accident. 3. Type 2 diabetes mellitus. OPERATIONS: Above-knee amputation. CONSULTATIONS: Vascular Surgery and Infectious Disease. She is improved. MMODL / IJN: [id number] /
== END 2022-02-28 14:48 | disposition home health service (06) | DRG 617 ==
LOC: EC 14:18 → 5NMEDONC 18:49 → 3SCARD 02-25 10:59
PROVIDERS: ADMIT Family Medicine; ATTEND Family Medicine
PROC: 0Y6D0Z3 Detachment at Left Upper Leg, Low, Open Approach (ICD-10-PCS; principal; 2022-02-25 09:25)
DX: E11.621 Type 2 diabetes mellitus with foot ulcer (principal); E11.52 Type 2 diabetes mellitus with diabetic peripheral angiopathy with gangrene; L97.429 Non-pressure chronic ulcer of left heel and midfoot with unspecified severity; I69.354 Hemiplegia and hemiparesis following cerebral infarction affecting left non-dominant side; I70.262 Atherosclerosis of native arteries of extremities with gangrene, left leg; M86.8X7 Other osteomyelitis, ankle and foot; I11.0 Hypertensive heart disease with heart failure; I50.9 Heart failure, unspecified; M77.32 Calcaneal spur, left foot; I48.0 Paroxysmal atrial fibrillation; N18.4 Chronic kidney disease, stage 4 (severe); E28.2 Polycystic ovarian syndrome; I27.20 Pulmonary hypertension, unspecified; L97.519 Non-pressure chronic ulcer of other part of right foot with unspecified severity; F32.A Depression, unspecified; E78.5 Hyperlipidemia, unspecified; Z83.3 Family history of diabetes mellitus; Z87.891 Personal history of nicotine dependence; Z79.01 Long term (current) use of anticoagulants; Z79.84 Long term (current) use of oral hypoglycemic drugs; Z79.890 Hormone replacement therapy; Z79.4 Long term (current) use of insulin; Z79.899 Other long term (current) drug therapy; Z98.890 Other specified postprocedural states; Z85.850 Personal history of malignant neoplasm of thyroid
CPT/HCPCS: 36415; 80048; 80053; 80202; 82565; 83036; 83605; 85025; 85027; 85610; 85730; 87040; 87070; 87077; 87186; 87205; 93005; 96365; 96366; 99285

== ENCOUNTER → 2022-03-16 | Outpatient (CLI) | payer MEDICARE, BC ==
--- NOTE | 2022-03-16 12:37 | XR ---
EXAMINATION TYPE: XR chest 2V DATE OF EXAM: 03/16/2022 COMPARISON: 10/27/2021 HISTORY: 82-year-old female R06.89, postsurgical evaluation. TECHNIQUE: AP and lateral views FINDINGS: Patient is markedly rotated towards the right. Heart appears mildly enlarged. Diffuse interstitial/va scular density may be slightly increased from prior. Enlarging now small to moderate right pleural ef fusion. Patchy bibasilar densities remain. Some calcification noted overlying the left hemidiaphragm may reflect sequela of prior asbestos exposure. There is hyperinflation. IMPRESSION: Correlate for COPD with superimposed CHF and pulmonary vascular congestion. Increasing small to moder ate right pleural effusion with adjacent atelectasis and/or consolidation.
== END | disposition home or self-care (01) ==
LOC: RADXRMAIN 09:35
PROVIDERS: ATTEND Family Medicine
DX: I50.9 Heart failure, unspecified (principal); J44.9 Chronic obstructive pulmonary disease, unspecified; J90 Pleural effusion, not elsewhere classified; J98.11 Atelectasis
CPT/HCPCS: 71046

== ENCOUNTER 2022-03-21 13:43 | Inpatient (IN) | payer MEDICARE, BC ==
--- NOTE | 2022-03-21 15:09 | XR ---
EXAMINATION TYPE: XR chest 2V DATE OF EXAM: 03/21/2022 COMPARISON: 03/16/2022 TECHNIQUE: PA and lateral views submitted. HISTORY: Cough FINDINGS: Bilateral consolidation and small effusion. Diffuse interstitial pattern. Heart size is enlarged. The re is no pneumothorax. Hyperinflation suggests COPD. Atherosclerotic change aorta. Diffuse osteopenia . Calcification along the left hemidiaphragm is suggestive of asbestos related disease. IMPRESSION: 1. Bilateral infiltrate and pleural effusion correlate for CHF otherwise consider pneumonia. 2. Correlate for asbestos related disease.
[2022-03-21] MEDS ORDERED: ALBUTEROL NEBULIZED 2.5 MG/3 ML INHALATION PRN (19:00)
[2022-03-21] MEDS ORDERED: AZITHROMYCIN 500 MG in SODIUM CHLORIDE 0.9% 250 ML IVPB STA (19:00)
[2022-03-21] MEDS ORDERED: PNEUMONIA PROTOCOL UTILIZED 1 EACH MISC PO PRN (19:00)
--- NOTE | 2022-03-21 19:32 | ED ---
General Adult HPI - General Chief complaint: Upper Respiratory Infection Stated complaint: SOB Time Seen by Provider: 03/21/22 17:39 Source: patient Mode of arrival: wheelchair Limitations: no limitations - History of Present Illness Initial comments: This patient is an 82-year-old woman who comes to the emergency department with the complaint that she has been having low pulse oximetry readings intermittently at home. The patient had been having some associated cough. When the numbers were noted to be in the low to mid 80s, the visiting caregiver felt that she should have further evaluation. Patient unaware of whether she has had fevers. Denies chest pain. Occasional sputum with cough though usually nonproductive. -: days(s) Severity scale (1-10): 0 Consistency: constant Improves with: none Worsens with: none Associated Symptoms: cough, shortness of breath Treatments Prior to Arrival: none - Related Data Home Medications Medication Instructions Recorded Confirmed Benazepril [Lotensin] 5 mg PO DAILY 06/11/15 03/21/22 Metoprolol Tartrate 12.5 mg PO BID 06/11/15 03/21/22 Oxybutynin Chloride 5 mg PO BID 06/11/15 03/21/22 Levothyroxine Sodium [Synthroid] 75 mcg PO DAILY 09/14/21 03/21/22 Pantoprazole [Protonix] 40 mg PO BID 10/27/21 03/21/22 Apixaban [Eliquis] 2.5 mg PO BID 02/21/22 03/21/22 Insulin Glargine,Hum.rec.anlog 10 unit SQ HS 02/21/22 03/21/22 [Lantus Solostar Pen] Allergies Allergy/AdvReac Type Severity Reaction Status Date / Time No Known Allergies Allergy Verified 02/21/22 19:18 Review of Systems ROS Statement: Those systems with pertinent positive or pertinent negative responses have been documented in the HPI. ROS Other: All systems not noted in ROS Statement are negative. Constitutional: Reports: weakness. Denies: fever, chills Respiratory: Reports: cough, dyspnea. Denies: wheezes, hemoptysis Cardiovascular: Denies: chest pain, palpitations, edema, syncope Gastrointestinal: Denies: abdominal pain, nausea, vomiting, diarrhea, melena, hematochezia Genitourinary: Denies: dysuria, hematuria Musculoskeletal: Denies: back pain Skin: Denies: rash Neurological: Denies: headache, weakness Past Medical History Past Medical History: Atrial Fibrillation, Cancer, Heart Failure, CVA/TIA, Diabetes Mellitus, Hyperlipidemia, Hypertension, Liver Disease, Pneumonia, Renal Disease, Supraventricular Tachycardia (SVT), Thyroid Disorder Additional Past Medical History / Comment(s): Pt recently admitted on 09/14/21 to [facility] with fall with L hip fracture/surgery, SVT with CHF and had coffee ground emesis during stay. 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 History of Any Multi-Drug Resistant Organisms: None Reported Past Surgical History: Adenoidectomy, Appendectomy, Cholecystectomy, Hysterectomy, Orthopedic Surgery, Tonsillectomy Additional Past Surgical History / Comment(s): 09/18/21 ORIF L hip, bilateral knee arthrotomies, total thyroidectomy, bilateral cataract surgery. Past Anesthesia/Blood Transfusion Reactions: No Reported Reaction Past Psychological History: Depression Smoking Status: Former smoker Past Alcohol Use History: None Reported Past Drug Use History: None Reported - Past Family History Mother Family Medical History: Diabetes Mellitus Son(s) Family Medical History: Cancer Additional Family Medical History / Comment(s): brain tumor Father Family Medical History: Diabetes Mellitus General Exam Limitations: no limitations General appearance: alert, in no apparent distress Head exam: Present: atraumatic, normocephalic Eye exam: Present: normal appearance. Absent: scleral icterus, conjunctival injection Neck exam: Present: normal inspection Respiratory exam: Present: rales (Trace of crackles at the bases bilaterally). Absent: respiratory distress, wheezes, rhonchi, stridor Cardiovascular Exam: Present: regular rate, normal rhythm, normal heart sounds. Absent: systolic murmur, diastolic murmur, rubs, gallop GI/Abdominal exam: Present: soft. Absent: distended, tenderness, guarding, rebound, rigid Extremities exam: Present: normal inspection, normal capillary refill. Absent: pedal edema, calf tenderness Back exam: Present: normal inspection. Absent: CVA tenderness (R), CVA tenderness (L) Neurological exam: Present: alert Skin exam: Present: warm, dry, intact, normal color. Absent: rash Course Vital Signs 03/21/22 03/21/22 03/21/22 14:05 20:01 20:10 Temperature 98 F Pulse Rate 67 78 80 Respiratory 18 Rate Blood Pressure 158/73 O2 Sat by Pulse 91 L Oximetry 03/21/22 20:43 Temperature Pulse Rate 71 Respiratory 20 Rate Blood Pressure 193/66 O2 Sat by Pulse 98 Oximetry Medical Decision Making - Lab Data Result diagrams: 03/21/22 20:00 03/21/22 20:00 Disposition Clinical Impression: Pneumonia, Pleural effusion Disposition: ADMITTED IP TO THIS HOSP Condition: Fair Is patient prescribed a controlled substance at d/c from ED?: No
[2022-03-21] MEDS: IPRATROPIUM-ALBUTEROL 3 ML NEB INHALATION SCH (19:59)
[2022-03-21 20:39] LABS: Anisocytosis Slight; Basophils # (A) 0.1 k/uL (0-0.2); Basophils % (A) 1 %; Eosinophils # (A) 0.2 k/uL (0-0.7); Eosinophils % (A) 2 %; HCT 39.1 % (34.0-46.0); HGB 11.6 gm/dL (11.4-16.0); Hypochromasia Marked; Lymphocytes # (A) 1.4 k/uL (1.0-4.8); Lymphocytes % (A) 21 %; MCH 25.5 pg (25.0-35.0); MCHC 29.6 g/dL (31.0-37.0); MCV 86.3 fL (80.0-100.0); Mean Platelet Volume 8.7; Monocytes # (A) 0.6 k/uL (0-1.0); Monocytes % (A) 8 %; Neutrophils # (A) 4.3 k/uL (1.3-7.7); Neutrophils % (A) 65 %; Platelet Count 328 k/uL (150-450); RBC 4.53 m/uL (3.80-5.40); RDW 17.9 % (11.5-15.5); WBC 6.6 k/uL (3.8-10.6)
[2022-03-21 20:49] LABS: ALT 14 U/L (4-34); AST 18 U/L (14-36); African American GFR (CKD) 58 (>60 ml/min/1.73 sqM); Albumin 3.2 g/dL (3.5-5.0); Albumin/Globulin Ratio 1.1; Alkaline Phosphatase 103 U/L (38-126); Anion Gap 4 mmol/L; Blood Urea Nitrogen 12 mg/dL (7-17); Calcium 8.9 mg/dL (8.4-10.2); Carbon Dioxide 29 mmol/L (22-30); Chloride 107 mmol/L (98-107); Globulin 2.9 g/dL; Glucose 211 mg/dL (74-99); Non-African American GFR(CKD) 50 (>60 ml/min/1.73 sqM); Potassium 3.9 mmol/L (3.5-5.1); Sodium 140 mmol/L (137-145); Total Bilirubin 1.2 mg/dL (0.2-1.3); Total Protein 6.1 g/dL (6.3-8.2)
[2022-03-21] MEDS: APIXABAN 2.5 MG TABLET PO SCH (21:21)
[2022-03-21] MEDS: METOPROLOL TARTRATE 12.5 MG TAB PO SCH (21:21)
[2022-03-21] MEDS: OXYBUTYNIN CHLORIDE 5 MG TAB PO SCH (21:21)
[2022-03-21] MEDS: INSULIN DETEMIR (LEVEMIR) 100 UNIT/ML SYR SQ SCH (21:22)
[2022-03-21] MEDS: SODIUM CHLORIDE 0.9% 1,000 ML IV SCH (21:27)
[2022-03-22] MEDS: PANTOPRAZOLE 40 MG TABLET PO SCH ×3 (00:27→17:10)
[2022-03-22] MEDS: LEVOTHYROXINE 75 MCG TAB PO SCH (05:46)
[2022-03-22 06:18] LABS: Glucose,Whole Blood 103 mg/dL (70-110)
[2022-03-22] MEDS: INSULIN ASPART (NovoLOG) 100 UNIT/ML VIAL SQ SCH ×4 (07:03→20:41)
[2022-03-22] MEDS: APIXABAN 2.5 MG TABLET PO SCH ×2 (07:15→20:40)
[2022-03-22] MEDS: OXYBUTYNIN CHLORIDE 5 MG TAB PO SCH ×2 (07:16→20:40)
[2022-03-22] MEDS: lisinopriL 5 MG TAB PO SCH (07:16)
[2022-03-22] MEDS: METOPROLOL TARTRATE 12.5 MG TAB PO SCH ×2 (07:21→20:39)
--- NOTE | 2022-03-22 08:32 | XR ---
EXAMINATION TYPE: XR chest 2V DATE OF EXAM: 03/22/2022 6:35 AM COMPARISON: Chest radiograph from one day prior. TECHNIQUE: XR chest 2V Frontal and lateral views of the chest. CLINICAL INDICATION:Female, 82 years old with history of pneumonia; FINDINGS: Lungs/Pleura: No evidence of focal consolidation or pneumothorax. Blunting of the costophrenic angles is present. Pulmonary vascularity: Mild pulmonary vascular congestion. Heart/mediastinum: Cardiomediastinal silhouette is enlarged and stable. Musculoskeletal: No acute osseous pathology. IMPRESSION: Cardiomegaly, pulmonary vascular congestion and bilateral pleural effusions. Correlate with BNP for c ongestive heart failure.
[2022-03-22] MEDS: IPRATROPIUM-ALBUTEROL 3 ML NEB INHALATION SCH ×4 (10:00→19:24)
[2022-03-22] MEDS: SODIUM CHLORIDE 0.9% 1,000 ML IV SCH ×2 (11:19→17:12)
[2022-03-22 11:39] LABS: Glucose,Whole Blood 134 mg/dL (70-110)
[2022-03-22] MEDS ORDERED: FUROSEMIDE 10 MG/ML 4 ML VIAL IV STA (13:27)
[2022-03-22 16:35] LABS: Glucose,Whole Blood 163 mg/dL (70-110)
--- NOTE | 2022-03-22 16:51 | P.CNPUL ---
History of Present Illness Consult date: 03/22/22 Requesting physician: Conner Warren Reason for consult: hypoxemia Chief complaint: Hypoxemia History of present illness: This is a pleasant 82-year-old female with a known history of hypothyroidism, diabetes mellitus, hypertension, atrial fibrillation anticoagulated with Eliquis, CVA/TIA, congestive heart failure, chronic kidney disease former smoker. She has a visiting nurse at home and found her to have a room air oxygen of 86%. They felt she was somewhat short of breath. She was referred here to the emergency room for the same. The patient is seen today in consultation. She is sitting up in bed. Awake and alert in no acute distress. She denies any shortness of breath cough or congestion. No fever or chills. Chest x-ray did reveal some pleural effusions and possible congestive heart failure. White count 6.6. Hemoglobin 11.6. Platelets 328. Sodium 140. Potassium 3.9. Bicarb 29. BUN 12. Creatinine 1.05. Glucose 211. AST 18. ALT 14. ProBNP 7140. She was initiated and DuoNeb inhalations. 0.9 normal saline at 100 ML's per hour. Anticoagulated with Eliquis. Antibiotics in the form of ceftriaxone and azithromycin. She is currently maintaining O2 satu rations in the 90s on 2 L/m per nasal cannula. Afebrile. Review of Systems REVIEW OF SYSTEMS: CONSTITUTIONAL: Question of shortness of breath and low oxygen at home. Denies any recent significant weight loss or weight gain. EYES: Denies change in vision. EARS, NOSE, MOUTH, THROAT: Denies headaches, denies sore throat. CARDIOVASCULAR: Denies chest pain, palpitations or syncopal episodes. RESPIRATORY: Denies shortness of breath, cough, congestion or hemoptysis. GASTROINTESTINAL: Denies change in appetite, denies abdominal pain GENITOURINARY: Denies hematuria, denies infections. MUSKULOSKELETAL: Denies pain, denies swelling. INTEGUMENTARY: Denies rash, denies eczema. NEUROLOGICAL: Denies recent memory loss, no recent seizure activity. PSYCHIATRIC: Denies anxiety, denies depression. HEMATOLOGIC/LYMPHATIC: Denies anemia, denies enlarged lymph nodes. Past Medical History Past Medical History: Atrial Fibrillation, Cancer, Heart Failure, CVA/TIA, Diabetes Mellitus, Hyperlipidemia, Hypertension, Liver Disease, Pneumonia, Renal Disease, Supraventricular Tachycardia (SVT), Thyroid Disorder Additional Past Medical History / Comment(s): Pt recently admitted on 09/14/21 to [facility] with fall with L hip fracture/surgery, SVT with CHF and had coffee ground emesis during stay. 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 History of Any Multi-Drug Resistant Organisms: None Reported Past Surgical History: Adenoidectomy, Appendectomy, Cholecystectomy, Hysterectomy, Orthopedic Surgery, Tonsillectomy Additional Past Surgical History / Comment(s): 09/18/21 ORIF L hip, bilateral knee arthrotomies, total thyroidectomy, bilateral cataract surgery. Past Anesthesia/Blood Transfusion Reactions: No Reported Reaction Past Psychological History: Depression Smoking Status: Former smoker Past Alcohol Use History: None Reported Additional Past Alcohol Use History / Comment(s): Pt started smoking in 1957 and quit in 2005 Past Drug Use History: None Reported - Past Family History Mother Family Medical History: Diabetes Mellitus Son(s) Family Medical History: Cancer Additional Family Medical History / Comment(s): brain tumor Father Family Medical History: Diabetes Mellitus Medications and Allergies Home Medications Medication Instructions Recorded Confirmed Type Benazepril [Lotensin] 5 mg PO DAILY 06/11/15 03/21/22 History Metoprolol Tartrate 12.5 mg PO BID 06/11/15 03/21/22 History Oxybutynin Chloride 5 mg PO BID 06/11/15 03/21/22 History Levothyroxine Sodium [Synthroid] 75 mcg PO DAILY 09/14/21 03/21/22 History Pantoprazole [Protonix] 40 mg PO BID 10/27/21 03/21/22 History Apixaban [Eliquis] 2.5 mg PO BID 02/21/22 03/21/22 History Insulin Glargine,Hum.rec.anlog 10 unit SQ HS 02/21/22 03/21/22 History [Lantus Solostar Pen] Allergies Allergy/AdvReac Type Severity Reaction Status Date / Time No Known Allergies Allergy Verified 02/21/22 19:18 Physical Exam Vitals: Vital Signs Temp Pulse Pulse Resp BP BP Pulse Ox 03/22/22 16:37 76 03/22/22 16:25 76 03/22/22 15:02 98.2 F 60 17 180/73 95 03/22/22 15:01 20 91 L 03/22/22 11:56 80 18 03/22/22 11:47 78 18 99 03/22/22 11:11 20 95 03/22/22 09:05 20 96 03/22/22 07:55 20 03/22/22 07:44 98.3 F 58 L 17 192/67 96 03/22/22 01:53 97.5 F L 60 20 175/72 96 03/22/22 01:22 56 L 18 173/86 98 03/22/22 00:26 55 L 18 180/70 98 03/21/22 20:43 71 20 193/66 98 03/21/22 20:40 83 L 03/21/22 20:10 80 03/21/22 20:01 78 Intake and Output 03/22/22 03/22/22 03/22/22 06:59 14:59 22:59 Other: Weight 66.678 kg GENERAL EXAM: Alert, pleasant 82-year-old female, on 2 L nasal cannula, comfortable in no apparent distress. HEAD: Normocephalic. EYES: Normal reaction of pupils, equal size. NOSE: Clear with pink turbinates. THROAT: No erythema or exudates. NECK: No masses, no JVD. CHEST: No chest wall deformity. LUNGS: Equal air entry with faint crackles in the posterior bases. CVS: S1 and S2 normal with no audible murmur, regular rhythm. ABDOMEN: No hepatosplenomegaly, normal bowel sounds, no guarding or rigidity. SPINE: No scoliosis or deformity SKIN: No rashes CENTRAL NERVOUS SYSTEM: No focal deficits, tone is normal in all 4 extremities. EXTREMITIES: There is no peripheral edema. No clubbing, no cyanosis. Peripheral pulses are intact. Results - Laboratory Findings CBC and BMP: 03/21/22 20:00 03/21/22 20:00 Abnormal lab findings: Abnormal Labs 03/21/22 03/21/22 03/22/22 20:00 20:00 11:36 MCHC 29.6 L RDW 17.9 H Creatinine 1.05 H Glucose 211 H POC Glucose (mg/dL) 134 H Total Protein 6.1 L Albumin 3.2 L 03/22/22 16:34 MCHC RDW Creatinine Glucose POC Glucose (mg/dL) 163 H Total Protein Albumin - Diagnostic Findings Chest x-ray: image reviewed Assessment and Plan Assessment: Acute hypoxemic respiratory failure secondary to acute exacerbation of suspected diastolic congestive heart failure Recent hospitalization for a left [id number] amputation History of osteomyelitis and infected ulcers of the left foot History of CVA Diabetes mellitus Hypertension Hyperlipidemia Paroxysmal atrial fibrillation, anticoagulated with Eliquis Hypothyroidism Former smoker Plan: The patient was seen and evaluated Chest x-rays, labs and medications reviewed Obtain a proBNP and a pro-calcitonin Give Lasix 40 mg IVP 1 Continue antibiotics for now Titrate the FiO2 as tolerated We'll continue to follow and make further recommendations based on her clinical status I have personally seen and examined the patient, performed the documentation and the assessment and plan as written. Number of minutes spent on the visit: 20.
[2022-03-22 19:30] LABS: Glucose,Whole Blood 226 mg/dL (70-110)
[2022-03-22] MEDS: INSULIN DETEMIR (LEVEMIR) 100 UNIT/ML SYR SQ SCH (20:40)
[2022-03-22] MEDS ORDERED: AZITHROMYCIN 500 MG TAB PO SCH (21:00)
[2022-03-23 06:12] LABS: Glucose,Whole Blood 165 mg/dL (70-110)
[2022-03-23] MEDS: INSULIN ASPART (NovoLOG) 100 UNIT/ML VIAL SQ SCH ×4 (06:31→21:16)
[2022-03-23] MEDS: LEVOTHYROXINE 75 MCG TAB PO SCH (06:31)
[2022-03-23] MEDS: PANTOPRAZOLE 40 MG TABLET PO SCH ×2 (06:31→17:00)
[2022-03-23] MEDS: IPRATROPIUM-ALBUTEROL 3 ML NEB INHALATION SCH ×4 (08:07→19:55)
[2022-03-23] MEDS: METOPROLOL TARTRATE 12.5 MG TAB PO SCH ×2 (09:44→21:15)
[2022-03-23] MEDS: APIXABAN 2.5 MG TABLET PO SCH ×2 (09:44→21:16)
[2022-03-23] MEDS: lisinopriL 5 MG TAB PO SCH (09:44)
[2022-03-23] MEDS: OXYBUTYNIN CHLORIDE 5 MG TAB PO SCH ×2 (09:44→21:16)
[2022-03-23 11:11] LABS: Glucose,Whole Blood 143 mg/dL (70-110)
--- NOTE | 2022-03-23 13:25 | P.PN ---
Subjective Progress Note Date: 03/23/22 Principal diagnosis: Shortness of breath. This is a pleasant 82-year-old female with a known history of hypothyroidism, diabetes mellitus, hypertension, atrial fibrillation anticoagulated with Eliquis, CVA/TIA, congestive heart failure, chronic kidney disease former smoker. She has a visiting nurse at home and found her to have a room air oxygen of 86%. They felt she was somewhat short of breath. She was referred here to the emergency room for the same. The patient is seen today in consultation. She is sitting up in bed. Awake and alert in no acute distress. She denies any shortness of breath cough or congestion. No fever or chills. Chest x-ray did reveal some pleural effusions and possible congestive heart failure. White count 6.6. Hemoglobin 11.6. Platelets 328. Sodium 140. Potassium 3.9. Bicarb 29. BUN 12. Creatinine 1.05. Glucose 211. AST 18. ALT 14. ProBNP 7140. She was initiated and DuoNeb inhalations. 0.9 normal saline at 100 ML's per hour. Anticoagulated with Eliquis. Antibiotics in the form of ceftriaxone and azithromycin. She is currently maintaining O2 saturations in the 90s on 2 L/m per nasal cannula. Afebrile. Progress note dated 03/23/2022. This is a 82-year-old female who was seen yesterday in consultation. The pat ient has a history of hypothyroidism, diabetes, hypertension, atrial fibrillation, CVA, congestive heart failure, and chronic kidney disease. Currently, the patient is on 2 L of oxygen. She is getting saline at 20 mL an hour. She appears better today than she did yesterday. No new labs today other than a glucose of 143. Pro-calcitonin level was 0.08. She tested negative for coronavirus, RSV, and influenza A and influenza B. Objective - Vital Signs Vital signs: Vital Signs Temp 97.7 F 03/23/22 07:11 Pulse 74 03/23/22 11:30 Resp 14 03/23/22 07:11 BP 164/78 03/23/22 07:11 Pulse Ox 93 L 03/23/22 08:07 FiO2 Intake & Output 03/22/22 03/23/22 03/23/22 18:59 06:59 18:59 Other: # Voids 6 3,000 - Exam No acute distress, oriented 3. Currently on 2 L of oxygen. HEENT examination is grossly unremarkable. Neck supple. Full range of motion. No adenopathy thyromegaly or neck vein distention. Cardiovascular examination reveals regular rhythm rate. S1-S2 normal. No S3 or S4. No discernible murmur noted. Heart sounds are distant. Heart rate 74 bpm. Lungs reveal scattered bilateral rhonchi. No wheezes. No crackles. Breath sounds equal bilaterally. Saturations 93% on 2 L. Abdomen soft bowel sounds are heard. No masses or tenderness. Extremities are intact. No cyanosis clubbing or edema. Skin is without rash or lesion. Neurologic examination is brief but nonfocal. - Labs CBC & Chem 7: 03/21/22 20:00 03/21/22 20:00 Labs: Abnormal Lab Results - Last 24 Hours (Table) 03/22/22 03/22/22 03/23/22 Range/Units 16:34 19:28 06:10 POC Glucose (mg/dL) 163 H 226 H 165 H (70-110) mg/dL 03/23/22 Range/Units 11:09 POC Glucose (mg/dL) 143 H (70-110) mg/dL Microbiology - Last 24 Hours (Table) 03/21/22 20:00 Blood Culture - Preliminary Blood No Growth after 24 hours 03/21/22 19:15 Blood Culture - Preliminary Blood No Growth after 24 hours Assessment and Plan Assessment: Acute hypoxemic respiratory failure secondary to acute exacerbation of suspected diastolic congestive heart failure. Recent hospitalization for a left [id number] amputation. History of osteomyelitis and infected ulcers of the left foot. History of CVA. Diabetes mellitus. Hypertension. Hyperlipidemia. Paroxysmal atrial fibrillation. Hypothyroidism. Former smoker. Plan: Plan dated 03/23/2022. The patient appears be doing relatively well. She seems stable. She is on 2 L of oxygen. The patient is getting saline at 20 mL an hour. Labs, x-rays, medications are reviewed. Everything appears to be appropriate. The pro- calcitonin level is quite low. Lasix was given yesterday. Antibiotics can be discontinued because of the very low pro-calcitonin level. Time with Patient: Less than 30
[2022-03-23 16:02] LABS: Glucose,Whole Blood 215 mg/dL (70-110)
[2022-03-23] MEDS: SODIUM CHLORIDE 0.9% 1,000 ML IV SCH (17:00)
[2022-03-23 19:44] LABS: Glucose,Whole Blood 215 mg/dL (70-110)
[2022-03-23] MEDS: INSULIN DETEMIR (LEVEMIR) 100 UNIT/ML SYR SQ SCH (21:16)
--- NOTE | 2022-03-23 22:47 | PN ---
PROGRESS NOTE DATE OF SERVICE: 03/22/2022 CHIEF COMPLAINT: Pneumonitis. HISTORY OF PRESENT ILLNESS: This lady is doing fairly well. She is not running a fever and she is not short of breath. PHYSICAL EXAMINATION: CHEST: Demonstrates only occasional rales at the bases. CARDIAC: Normal. ABDOMEN: Soft, nontender. IMPRESSION: 1. Bronchopneumonia. 2. Old cerebrovascular accident. 3. Diabetes. 4. Status post recent left above-knee amputation for osteomyelitis of the left foot and PVOD. PLAN: Continue with updrafts, IV fluids, and antibiotics. MMODL / SHANTN: [id number] /
--- NOTE | 2022-03-23 23:23 | PN ---
PROGRESS NOTE DATE OF SERVICE: 03/23/2022 CHIEF COMPLAINT: Pneumonitis. HISTORY OF PRESENT ILLNESS: This lady is doing fairly well. Temperature is down. She is not having any shortness of breath or chest pain. PHYSICAL EXAMINATION: CHEST: Quite clear. Breath sounds are slightly diminished at the bases. CARDIAC: Normal. ABDOMEN: Soft, nontender. IMPRESSION: 1. Bronchopneumonia. 2. Previous cerebrovascular accident. 3. Diabetes. PLAN: 1. Continue with updrafts and steroids. 2. Control hyperglycemia. MMODL / IJN: [id number] /
--- NOTE | 2022-03-23 23:29 | HP ---
HISTORY AND PHYSICAL CHIEF COMPLAINT: Fever and chills. HISTORY OF PRESENT ILLNESS: This is another recent admission for this 82-year-old white female who was in just recently, underwent amputation above the knee for cellulitis and osteomyelitis. She is being followed home by visiting nurses and it was noticed that she was running a temperature. The stump did not appear to be infected. There was a concern about either a urinary tract infection or pneumonitis and she was brought to the emergency room. REVIEW OF SYSTEMS: She denies any changes in her neurologic state. She has had no sore throat, cough, chest pain, shortness of breath, abdominal pain, nausea, vomiting, hematemesis, melena, etc. Past medical history, family history, personal and social histories are essentially otherwise unremarkable. ALLERGIES: She is not allergic to any medication. MEDICATIONS: She has been on include, 1. Pantoprazole. 2. Metoprolol. 3. Eliquis. 4. Benazepril. 5. Oxybutynin. 6. Vicodin. 7. Synthroid. 8. Levemir. She had a prior stroke many years ago, which has resulted in right hemipareses. PHYSICAL EXAMINATION: VITAL SIGNS: Blood pressure is 134/80 with a pulse of 76, respirations of 21, and she is afebrile. GENERAL: She appeared to be in good condition and good state considering her age and her previous CVA. HEAD, EARS, EYES, NOSE, MOUTH AND THROAT: Normal. Carotids are normal. CHEST: Clear. CARDIAC: Normal sinus rhythm. ABDOMEN: Soft, nontender. EXTREMITIES: Normal. The stump is not infected. She is admitted to the hospital with diagnosis of: 1. Bronchopneumonia. 2. Old cerebrovascular accident. 3. Recent amputation of the right leg. 4. Osteomyelitis of the left leg secondary to osteomyelitis of the foot and lower leg as well as poor peripheral vascular perfusion. PLAN: 1. Bedrest. 2. IV fluids. 3. Updrafts. 4. Antibiotics. MMODL / IJN: [id number] /
[2022-03-24 06:09] LABS: Glucose,Whole Blood 98 mg/dL (70-110)
[2022-03-24] MEDS: INSULIN ASPART (NovoLOG) 100 UNIT/ML VIAL SQ SCH ×2 (06:23→14:05)
[2022-03-24] MEDS: PANTOPRAZOLE 40 MG TABLET PO SCH (06:52)
[2022-03-24] MEDS: LEVOTHYROXINE 75 MCG TAB PO SCH (06:52)
[2022-03-24 07:36] VITALS: BP 162/65; RESP 18; TEMP 98.1
[2022-03-24] MEDS: IPRATROPIUM-ALBUTEROL 3 ML NEB INHALATION SCH ×2 (08:31→12:01)
[2022-03-24] MEDS: METOPROLOL TARTRATE 12.5 MG TAB PO SCH (10:02)
[2022-03-24] MEDS: APIXABAN 2.5 MG TABLET PO SCH (10:02)
[2022-03-24] MEDS: OXYBUTYNIN CHLORIDE 5 MG TAB PO SCH (10:02)
[2022-03-24] MEDS: lisinopriL 5 MG TAB PO SCH (10:02)
[2022-03-24] MEDS ORDERED: LEVOFLOXACIN 250 MG TAB PO SCH (11:00)
[2022-03-24 11:33] LABS: Glucose,Whole Blood 132 mg/dL (70-110)
[2022-03-24 12:12] VITALS: PULSE 58
--- NOTE | 2022-03-24 13:58 | P.PN ---
Subjective Progress Note Date: 03/24/22 This is a pleasant 82-year-old female with a known history of hypothyroidism, diabetes mellitus, hypertension, atrial fibrillation anticoagulated with Eliquis, CVA/TIA, congestive heart failure, chronic kidney disease former smoker. She has a visiting nurse at home and found her to have a room air oxygen of 86%. They felt she was somewhat short of breath. She was referred here to the emergency room for the same. The patient is seen today in consultation. She is sitting up in bed. Awake and alert in no acute distress. She denies any shortness of breath cough or congestion. No fever or chills. Chest x-ray did reveal some pleural effusions and possible congestive heart failure. White count 6.6. Hemoglobin 11.6. Platelets 328. Sodium 140. Potassium 3.9. Bicarb 29. BUN 12. Creatinine 1.05. Glucose 211. AST 18. ALT 14. ProBNP 7140. She was initiated and DuoNeb inhalations. 0.9 normal saline at 100 ML's per hour. Anticoagulated with Eliquis. Antibiotics in the form of ceftriaxone and azithromycin. She is currently maintaining O2 saturations in the 90s on 2 L/m per nasal cannula. Afebrile. Progress note dated 03/23/2022. This is a 82-year-old female who was seen yesterday in consultation. The patient has a history of hypothyroidism, diabetes, hypertension, atrial fibrillation, CVA, congestive heart failure, and chronic kidney disease. Currently, the patient is on 2 L of oxygen. She is getting saline at 20 mL an hour. She appears better today than she did yesterday. No new labs today other than a glucose of 143. Pro-calcitonin level was 0.08. She tested negative for coronavirus, RSV, and influenza A and influenza B. The patient is seen today 03/24/2022 in follow-up on the regular medical floor. She is currently sitting up in bed. Awake and alert in no acute distress. She denies any worsening shortness of breath, cough or congestion. She is eliud ntaining O2 saturations in the 90s on 2 L/m per nasal cannula. Blood cultures reveal no growth. Sputum culture reveals no growth. She is asking to go home. Blood glucose 132. She is continued on DuoNeb inhalations. Antibiotics in the form of Levaquin. Anticoagulated with Eliquis . Objective - Vital Signs Vital signs: Vital Signs Temp 98.1 F 03/24/22 07:35 Pulse 58 L 03/24/22 12:11 Resp 18 03/24/22 07:35 BP 162/65 03/24/22 07:35 Pulse Ox 94 L 03/24/22 08:33 FiO2 Intake & Output 03/23/22 03/24/22 03/24/22 18:59 06:59 18:59 Intake Total 1080 Output Total 450 1300 Balance 630 -1300 Intake: Oral 1080 Output: Urine 450 1300 - Exam GENERAL EXAM: Alert, pleasant 82-year-old female, on 2 L nasal cannula, comfortable in no apparent distress. HEAD: Normocephalic. EYES: Normal reaction of pupils, equal size. NOSE: Clear with pink turbinates. THROAT: No erythema or exudates. NECK: No masses, no JVD. CHEST: No chest wall deformity. LUNGS: Equal air entry with faint crackles in the posterior bases. CVS: S1 and S2 normal with no audible murmur, regular rhythm. ABDOMEN: No hepatosplenomegaly, normal bowel sounds, no guarding or rigidity. SPINE: No scoliosis or deformity SKIN: No rashes CENTRAL NERVOUS SYSTEM: No focal deficits, tone is normal in all 4 extremities. EXTREMITIES: There is no peripheral edema. No clubbing, no cyanosis. Peripheral pulses are intact. - Labs CBC & Chem 7: 03/21/22 20:00 03/21/22 20:00 Labs: Abnormal Lab Results - Last 24 Hours (Table) 03/23/22 03/23/22 03/24/22 Range/Units 16:00 19:43 11:31 POC Glucose (mg/dL) 215 H 215 H 132 H (70-110) mg/dL Microbiology - Last 24 Hours (Table) 03/21/22 08:40 Sputum Culture - Preliminary Sputum 03/21/22 20:00 Blood Culture - Preliminary Blood No Growth after 48 hours 03/21/22 19:15 Blood Culture - Preliminary Blood No Growth after 48 hours Assessment and Plan Assessment: Acute hypoxemic respiratory failure secondary to acute exacerbation of suspected diastolic congestive heart failure. proBNP 7140. ProCalcitonin 0.08. Recent hospitalization for a left [id number] amputation History of osteomyelitis and infected ulcers of the left foot History of CVA Diabetes mellitus Hypertension Hyperlipidemia Paroxysmal atrial fibrillation, anticoagulated with Eliquis Hypothyroidism Former smoker Plan: The patient was seen and evaluated Medications reviewed Titrate the FiO2 as tolerated We'll continue to follow Home once Cleared by Medicine I have personally seen and examined the patient, performed the documentation and the assessment and plan as written. Number of minutes spent on the visit: 10.
--- NOTE | 2022-03-24 21:33 | DS ---
DISCHARGE SUMMARY CHIEF COMPLAINT: Low-grade fever, pneumonitis. HISTORY OF PRESENT ILLNESS AND PHYSICAL EXAMINATION: Details of this lady's history and physical can be found in the initial workup. LABORATORY STUDIES: While she was in the hospital, she had laboratory studies, details of which can be found in the laboratory section of her chart. COURSE IN THE HOSPITAL: After admission, she was placed on bedrest, started on intravenous fluids and IV antibiotics and updrafts. Temp stayed down. Breathing was fine and she was adamant about being discharged and she will go home on the on her usual activity, diet, medication, and 5 days of Levaquin 250 mg once a day. The patient will be followed up in the office. FINAL DIAGNOSES: 1. Bilateral lower lobe bronchial pneumonia. 2. Recent amputation of the right leg for osteomyelitis. 3. Previous cerebrovascular accident. 4. Hypertension. 5. Diabetes. OPERATIONS: None. CONSULTATIONS: None. She is improved. MMSHAYY / SURINDER: [id number] /
--- NOTE | 2022-03-28 08:27 | CDI ---
Documentation Clarification Form Date: 03/29/22 From: Tatiana Estrada Admit Date: 03/21/2022 07:00:00 PM Patient Name: Phoebe Matamoros Visit Number: [id number] Discharge Date: 03/24/2022 02:27:00 PM ATTENTION: The Clinical Documentation Specialists (CDI) and [facility] Coding Staff appreciate your assistance in clarifying documentation. Please respond to the clarification below the line at the bottom and electronically sign. The CDI & [facility] Coding staff will review the response and follow-up if needed. Please note: Queries are made part of the Legal Health Record. If you have any questions, please contact the author of this message via ITS. Dr. Conner Warren, Conflicting documentation has been found in the medical record. As attending physician, please provide clarification. Per Dr. Martinez's consult "Acute hypoxemic respiratory failure secondary to acute exacerbation of suspected diastolic congestive heart failure." Dr. Martinez's 03/23 PN " The pro-calcitonin level is quite low. Lasix was given yesterday. Antibiotics can be discontinued because of the very low pro- calcitonin level. Per your H&P and DS "Bilateral lower lobe bronchial pneumonia." History/Risk Factors: HTN w acute on chronic diastolic CHF w CKD IV, T2DM w CKD, hx of left hemiplegia, pulmonary HTN, PAF, left AKA Clinical Indicators: 03/21 CXR: Bilateral infiltrate and pleural effusion correlate for CHF otherwise consider pneumonia. 03/22 CXR: Cardiomegaly, pulmonary vascular congestion and bilateral pleural effusions. Correlate with BNP for congestive heart failure. BNP: 7140 Procalcitonin: 0.08 WBC: 6.6 Neutrophils: 65 Treatment: Azithromycin IV, Zithromax po, Ceftriaxone Sodium IV, Levaquin po, Lasix IV Please clarify which diagnosis is most appropriate as principal diagnosis: [ ] Acute on chronic diastolic CHF, POA [ ] Bilateral lower lobe bronchial pneumonia [ ] Other (please specify) [ ] Unable to determine MTDD
== END 2022-03-24 14:27 | disposition home health service (06) | DRG 193 ==
LOC: EC 13:43 → 4SSUR 19:00
PROVIDERS: ADMIT Family Medicine; ATTEND Family Medicine
DX: J18.0 Bronchopneumonia, unspecified organism (principal); I50.33 Acute on chronic diastolic (congestive) heart failure; J96.01 Acute respiratory failure with hypoxia; I13.0 Hypertensive heart and chronic kidney disease with heart failure and stage 1 through stage 4 chronic kidney disease, or unspecified chronic kidney disease; I69.354 Hemiplegia and hemiparesis following cerebral infarction affecting left non-dominant side; N18.4 Chronic kidney disease, stage 4 (severe); I27.20 Pulmonary hypertension, unspecified; E11.22 Type 2 diabetes mellitus with diabetic chronic kidney disease; I48.0 Paroxysmal atrial fibrillation; Z89.612 Acquired absence of left leg above knee; Z20.822 Contact with and (suspected) exposure to COVID-19; Z79.4 Long term (current) use of insulin; E89.0 Postprocedural hypothyroidism; E78.5 Hyperlipidemia, unspecified; Z79.01 Long term (current) use of anticoagulants; Z79.890 Hormone replacement therapy; Z79.899 Other long term (current) drug therapy; Z87.891 Personal history of nicotine dependence; Z85.850 Personal history of malignant neoplasm of thyroid; Z87.440 Personal history of urinary (tract) infections
CPT/HCPCS: 71046; 80053; 83880; 84145; 85025; 87040; 87070; 87077; 87186; 87205; 87636; 94640; 94760; 96361; 96365; 96366; 96375; 99285

== ENCOUNTER 2022-06-22 10:41 | Inpatient (IN) | payer MEDICARE, BC ==
--- NOTE | 2022-06-22 10:57 | ED ---
SOB HPI - General Chief Complaint: Shortness of Breath Stated Complaint: weakness, edema Time Seen by Provider: 06/22/22 10:50 Source: patient, RN notes reviewed Mode of arrival: EMS Limitations: no limitations - History of Present Illness Initial Comments: This is an 82-year-old female who presents to the emergency department for shortness of breath and leg swelling. States that the symptoms started 3 days ago. She is on 2 L of oxygen at home, but has had to increase this to 3-4 L. Additionally, over the last couple days she has also noticed increased swelling to the right lower extremity. The left lower extremity was amputated last year for osteomyelitis. States that in February of last year, she was also diagnosed with atrial fibrillation and has since been started on Eliquis. Denies any chest pain, but states that she has been coughing. She does have a history of CHF and denies any history of COPD. Denies any fevers or sick contacts. Denies any fevers, chills, sore throat, chest pain, palpitations, abdominal pain, nausea, vomiting, diarrhea, back pain, or headaches. MD Complaint: shortness of breath, cough Onset/Timin -: days(s) Known History Of: congestive heart failure - Related Data Home Oxygen Therapy: Yes Home Oxygen Amount: 2 Liters Home Medications Medication Instructions Recorded Confirmed Benazepril [Lotensin] 5 mg PO DAILY 06/11/15 06/22/22 Metoprolol Tartrate 12.5 mg PO BID 06/11/15 06/22/22 Oxybutynin Chloride 5 mg PO BID 06/11/15 06/22/22 Levothyroxine Sodium [Synthroid] 75 mcg PO DAILY 09/14/21 06/22/22 Pantoprazole [Protonix] 40 mg PO BID 10/27/21 06/22/22 Apixaban [Eliquis] 2.5 mg PO BID 02/21/22 06/22/22 Insulin Glargine,Hum.rec.anlog 10 unit SQ HS 02/21/22 06/22/22 [Lantus Solostar Pen] metFORMIN HCL 500 mg PO DAILY 06/22/22 06/22/22 Allergies Allergy/AdvReac Type Severity Reaction Status Date / Time No Known Allergies Allergy Verified 06/22/22 11:38 Review of Systems ROS Statement: Those systems with pertinent positive or pertinent negative responses have been documented in the HPI. ROS Other: All systems not noted in ROS Statement are negative. Past Medical History Past Medical History: Atrial Fibrillation, Cancer, Heart Failure, CVA/TIA, Diabetes Mellitus, Hyperlipidemia, Hypertension, Liver Disease, Pneumonia, Renal Disease, Supraventricular Tachycardia (SVT), Thyroid Disorder Additional Past Medical History / Comment(s): Pt recently admitted on 09/14/21 to [facility] with fall with L hip fracture/surgery, SVT with CHF and had coffee ground emesis during stay. 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 History of Any Multi-Drug Resistant Organisms: None Reported Past Surgical History: Adenoidectomy, Appendectomy, Cholecystectomy, Hysterectomy, Orthopedic Surgery, Tonsillectomy Additional Past Surgical History / Comment(s): 09/18/21 ORIF L hip, bilateral knee arthrotomies, total thyroidectomy, bilateral cataract surgery. Past Anesthesia/Blood Transfusion Reactions: No Reported Reaction Past Psychological History: Depression Smoking Status: Former smoker Past Alcohol Use History: None Reported Past Drug Use History: None Reported - Past Family History Mother Family Medical History: Diabetes Mellitus Son(s) Family Medical History: Cancer Additional Family Medical History / Comment(s): brain tumor Father Family Medical History: Diabetes Mellitus General Exam Limitations: no limitations General appearance: alert, in no apparent distress Head exam: Present: atraumatic, normocephalic, normal inspection Respiratory exam: Present: rhonchi, accessory muscle use Cardiovascular Exam: Present: tachycardia, irregular rhythm Extremities exam: Present: other (2+ pitting edema to the right lower extremity. No erythema, increased heat, or tenderness) Neurological exam: Present: alert, oriented X3, CN II-XII intact Psychiatric exam: Present: normal affect, normal mood Skin exam: Present: warm, dry, intact, normal color. Absent: rash Course Vital Signs 06/22/22 06/22/22 06/22/22 10:46 10:49 13:36 Temperature 98.1 F Pulse Rate 124 H 146 H 110 H Respiratory 32 H 30 H 18 Rate Blood Pressure 121/84 121/84 118/82 O2 Sat by Pulse 86 L 99 98 Oximetry 06/22/22 06/22/22 13:43 14:53 Temperature Pulse Rate 120 H Respiratory 28 H 28 H Rate Blood Pressure 116/83 O2 Sat by Pulse 100 Oximetry Medical Decision Making - Medical Decision Making This is an 82-year-old female who presents to the emergency department for difficulty breathing and right lower extremity swelling. Was pt. sent in by a medical professional or institution? @ -No Did you speak to anyone other than the patient for history? @ -No Did you review nursing and triage notes? @ -Yes, and I agree, it is accurate with regards to the patient's symptoms. Were old charts reviewed? @ -No Differential Diagnosis? @ -Differential Dyspnea: Coronary syndrome, arrhythmia, tamponade, asthma, COPD, pulmonary embolism, pneumonia, pneumothorax, pulmonary effusion, anaphylaxis, diabetic ketoacidosis, flailed chest, pulmonary contusion, diaphragmatic rupture, anemia, neuromuscular, this is not meant to be an all-inclusive list. EKG interpreted by me (3pts min.)? @ -A. fib with RVR. Ventricular rate 111 beats per minute, QRS duration 96 ms, QTC 256 ms. X-rays interpreted by me (1pt min.)? @ -Chest x-ray obtained. My interpretation reveals cardiomegaly and bilateral pleural effusions. What testing was considered but not performed? (CT, X-rays, U/S, labs)? Why? @ -None What meds were considered but not given? Why? @ -None Did you discuss the management of the patient with other professionals? @ -Yes, Dr. Warren, who accepts the patient for admission. Did you reconcile home meds? @ -Yes Was smoking cessation discussed for >3mins.? @ -No Was critical care preformed (if so, how long)? @ -No Were there social determinants of health that impacted care today? How? (Homelessness, low income, unemployed, alcoholism, drug addiction, transportation, low edu. Level, literacy, decrease access to med. care, [facility], rehab)? @ -No Was there de-escalation of care discussed even if they declined? (Discuss DNR or withdrawal of care, Hospice)? @ -No What co-morbidities impacted this encounter? (DM, HTN, Smoking, COPD, CAD, Cancer, CVA, Hep., AIDS, mental health diagnosis, sleep apnea, morbid obesity)? @ -A-fib, CHF, DM, HTN, HLD, renal disease, this is not meant to be an all- inclusive list. Was patient admitted / discharged? @ -Admitted. Lab work obtained revealing critical hyponatremia with a value of 97 and no other findings to explain this value. Stat repeat CMP was subsequently obtained. Repeat CMP reveals a normal sodium at a value of 142, and the rest of the CMP remained stable with the prior CMP. Patient had not received any fluids prior to this. A new IV did have to be started prior to drawing this. I spoke with lab, who did not have a clear explanation for this either. Advised that they will rerun both samples on a different machine. After rerunning both samples, repeat sodium was 142 on the first sample as well, suggesting a machine error and they updated the value in the computer accordingly. BNP is elevated at 20,700 and chest x-ray reveals bilateral pleural effusions, also consistent with CHF exacerbation. Troponin elevated at 0.057 likely secondary to CHF exacerbation. She is not on any diuretics at home. 40mg of IV Lasix was subsequently administered. Patient admitted to medicine for CHF exacerbation with cardiology consult. Undiagnosed new problem with uncertain prognosis? @ -None Drug Therapy requiring intensive monitoring for toxicity (Heparin, Nitro, Insulin, Cardizem)? @ -None Were any procedures done? @ -None Diagnosis/symptom? @ -CHF Exacerbation Acute, or Chronic, or Acute on Chronic? @ -Acute on Chronic Uncomplicated (without systemic symptoms) or Complicated (systemic symptoms)? @ -Complicated Side effects of treatment? @ -None Exacerbation, Progression, or Severe Exacerbation] @ -Severe exacerbation Poses a threat to life or bodily function? @ -Yes This case was discussed in detail with the attending ED physician, Dr. Carpio. Presentation, findings, and treatment plan discussed in detail as well. - Lab Data Result diagrams: 06/22/22 11:12 06/22/22 12:05 Lab Results 06/22/22 06/22/22 06/22/22 Range/Units 11:12 11:12 11:12 WBC 7.8 (3.8-10.6) k/uL RBC 5.22 (3.80-5.40) m/uL Hgb 11.9 (11.4-16.0) gm/dL Hct 41.6 (34.0-46.0) % MCV 79.7 L (80.0-100.0) fL MCH 22.8 L (25.0-35.0) pg MCHC 28.5 L (31.0-37.0) g/dL RDW 17.5 H (11.5-15.5) % Plt Count 288 (150-450) k/uL MPV 8.3 Neutrophils % 77 % Lymphocytes % 13 % Monocytes % 8 % Eosinophils % 1 % Basophils % 1 % Neutrophils # 6.0 (1.3-7.7) k/uL Lymphocytes # 1.0 (1.0-4.8) k/uL Monocytes # 0.6 (0-1.0) k/uL Eosinophils # 0.0 (0-0.7) k/uL Basophils # 0.0 (0-0.2) k/uL Hypochromasia Marked Poikilocytosis Slight Anisocytosis Slight Microcytosis Slight PT 12.1 H (9.0-12.0) sec INR 1.2 H (<1.2) APTT 27.3 (22.0-30.0) sec Sodium 142 (137-145) mmol/L Potassium 5.1 (3.5-5.1) mmol/L Chloride 105 (98-107) mmol/L Carbon Dioxide 33 H (22-30) mmol/L Anion Gap 4 mmol/L BUN 18 H (7-17) mg/dL Creatinine 1.07 H (0.52-1.04) mg/dL Est GFR (CKD-EPI)AfAm 57 (>60 ml/min/1.73 sqM) Est GFR (CKD-EPI)NonAf 49 (>60 ml/min/1.73 sqM) Glucose 108 H (74-99) mg/dL Plasma Lactic Acid Joshua (0.7-2.0) mmol/L Calcium 9.2 (8.4-10.2) mg/dL Phosphorus (2.5-4.5) mg/dL Magnesium (1.6-2.3) mg/dL Total Bilirubin 1.1 (0.2-1.3) mg/dL AST 23 (14-36) U/L ALT 13 (4-34) U/L Alkaline Phosphatase 71 (38-126) U/L Troponin I (0.000-0.034) ng/mL NT-Pro-B Natriuret Pep pg/mL Total Protein 6.2 L (6.3-8.2) g/dL Albumin 3.3 L (3.5-5.0) g/dL TSH (0.465-4.680) mIU/L Influenza Type A (PCR) (Not Detectd) Influenza Type B (PCR) (Not Detectd) RSV (PCR) (Not Detectd) SARS-CoV-2 (PCR) (Not Detectd) 06/22/22 06/22/22 06/22/22 Range/Units 11:12 11:12 11:12 WBC (3.8-10.6) k/uL RBC (3.80-5.40) m/uL Hgb (11.4-16.0) gm/dL Hct (34.0-46.0) % MCV (80.0-100.0) fL MCH (25.0-35.0) pg MCHC (31.0-37.0) g/dL RDW (11.5-15.5) % Plt Count (150-450) k/uL MPV Neutrophils % % Lymphocytes % % Monocytes % % Eosinophils % % Basophils % % Neutrophils # (1.3-7.7) k/uL Lymphocytes # (1.0-4.8) k/uL Monocytes # (0-1.0) k/uL Eosinophils # (0-0.7) k/uL Basophils # (0-0.2) k/uL Hypochromasia Poikilocytosis Anisocytosis Microcytosis PT (9.0-12.0) sec INR (<1.2) APTT (22.0-30.0) sec Sodium (137-145) mmol/L Potassium (3.5-5.1) mmol/L Chloride (98-107) mmol/L Carbon Dioxide (22-30) mmol/L Anion Gap mmol/L BUN (7-17) mg/dL Creatinine (0.52-1.04) mg/dL Est GFR (CKD-EPI)AfAm (>60 ml/min/1.73 sqM) Est GFR (CKD-EPI)NonAf (>60 ml/min/1.73 sqM) Glucose (74-99) mg/dL Plasma Lactic Acid Joshua 1.0 (0.7-2.0) mmol/L Calcium (8.4-10.2) mg/dL Phosphorus (2.5-4.5) mg/dL Magnesium (1.6-2.3) mg/dL Total Bilirubin (0.2-1.3) mg/dL AST (14-36) U/L ALT (4-34) U/L Alkaline Phosphatase (38-126) U/L Troponin I 0.054 H* (0.000-0.034) ng/mL NT-Pro-B Natriuret Pep 21412 pg/mL Total Protein (6.3-8.2) g/dL Albumin (3.5-5.0) g/dL TSH (0.465-4.680) mIU/L Influenza Type A (PCR) (Not Detectd) Influenza Type B (PCR) (Not Detectd) RSV (PCR) (Not Detectd) SARS-CoV-2 (PCR) (Not Detectd) 06/22/22 06/22/22 Range/Units 11:12 12:05 WBC (3.8-10.6) k/uL RBC (3.80-5.40) m/uL Hgb (11.4-16.0) gm/dL Hct (34.0-46.0) % MCV (80.0-100.0) fL MCH (25.0-35.0) pg MCHC (31.0-37.0) g/dL RDW (11.5-15.5) % Plt Count (150-450) k/uL MPV Neutrophils % % Lymphocytes % % Monocytes % % Eosinophils % % Basophils % % Neutrophils # (1.3-7.7) k/uL Lymphocytes # (1.0-4.8) k/uL Monocytes # (0-1.0) k/uL Eosinophils # (0-0.7) k/uL Basophils # (0-0.2) k/uL Hypochromasia Poikilocytosis Anisocytosis Microcytosis PT (9.0-12.0) sec INR (<1.2) APTT (22.0-30.0) sec Sodium 142 (137-145) mmol/L Potassium 4.6 (3.5-5.1) mmol/L Chloride 104 (98-107) mmol/L Carbon Dioxide 34 H (22-30) mmol/L Anion Gap 4 mmol/L BUN 18 H (7-17) mg/dL Creatinine 1.05 H (0.52-1.04) mg/dL Est GFR (CKD-EPI)AfAm 58 (>60 ml/min/1.73 sqM) Est GFR (CKD-EPI)NonAf 50 (>60 ml/min/1.73 sqM) Glucose 102 H (74-99) mg/dL Plasma Lactic Acid Joshua (0.7-2.0) mmol/L Calcium 8.9 (8.4-10.2) mg/dL Phosphorus 3.4 (2.5-4.5) mg/dL Magnesium 1.8 (1.6-2.3) mg/dL Total Bilirubin 1.0 (0.2-1.3) mg/dL AST 20 (14-36) U/L ALT 13 (4-34) U/L Alkaline Phosphatase 66 (38-126) U/L Troponin I (0.000-0.034) ng/mL NT-Pro-B Natriuret Pep pg/mL Total Protein 5.7 L (6.3-8.2) g/dL Albumin 3.0 L (3.5-5.0) g/dL TSH 3.170 (0.465-4.680) mIU/L Influenza Type A (PCR) Not Detected (Not Detectd) Influenza Type B (PCR) Not Detected (Not Detectd) RSV (PCR) Not Detected (Not Detectd) SARS-CoV-2 (PCR) Not Detected (Not Detectd) - Radiology Data Radiology results: report reviewed, image reviewed Disposition Clinical Impression: Acute exacerbation of CHF (congestive heart failure) Disposition: ADMITTED IP TO THIS [facility] Condition: Fair
[2022-06-22 11:27] LABS: Anisocytosis Slight; Basophils % (A) 1 %; Eosinophils % (A) 1 %; HCT 41.6 % (34.0-46.0); HGB 11.9 gm/dL (11.4-16.0); Hypochromasia Marked; Lymphocytes % (A) 13 %; MCH 22.8 pg (25.0-35.0); MCHC 28.5 g/dL (31.0-37.0); MCV 79.7 fL (80.0-100.0); Mean Platelet Volume 8.3; Microcytosis Slight; Monocytes # (A) 0.6 k/uL (0-1.0); Monocytes % (A) 8 %; Neutrophils % (A) 77 %; Platelet Count 288 k/uL (150-450); Poikilocytosis Slight; RBC 5.22 m/uL (3.80-5.40); RDW 17.5 % (11.5-15.5); WBC 7.8 k/uL (3.8-10.6)
[2022-06-22 11:37] LABS: Potassium 5.1 mmol/L (3.5-5.1)
[2022-06-22 11:38] LABS: Albumin 3.3 g/dL (3.5-5.0); Calcium 9.2 mg/dL (8.4-10.2); Total Bilirubin 1.1 mg/dL (0.2-1.3); Total Protein 6.2 g/dL (6.3-8.2)
[2022-06-22 11:39] LABS: INR 1.2 (<1.2); Partial Thromboplastin Time 27.3 sec (22.0-30.0); Prothrombin Time 12.1 sec (9.0-12.0)
--- NOTE | 2022-06-22 11:42 | XR ---
EXAMINATION TYPE: XR chest 2V DATE OF EXAM: 06/22/2022 COMPARISON: 03/22/2022 HISTORY: Shortness of breath FINDINGS: There are bilateral pleural effusions with cardiomegaly and bibasilar infiltrate. There is a diffuse interstitial pattern. Diffuse osteopenia. Underlying COPD suspected arthropathy of the shoulders. Pl eural calcification along the left lower lobe. IMPRESSION: 1. Bilateral infiltrate and pleural effusion favors CHF. 2. Correlate for asbestos related disease
[2022-06-22 12:30] LABS: ALT 13 U/L (4-34); AST 20 U/L (14-36); African American GFR (CKD) 58 (>60 ml/min/1.73 sqM); Alkaline Phosphatase 66 U/L (38-126); Anion Gap 4 mmol/L; Blood Urea Nitrogen 18 mg/dL (7-17); Calcium 8.9 mg/dL (8.4-10.2); Carbon Dioxide 34 mmol/L (22-30); Chloride 104 mmol/L (98-107); Glucose 102 mg/dL (74-99); Magnesium 1.8 mg/dL (1.6-2.3); Non-African American GFR(CKD) 50 (>60 ml/min/1.73 sqM); Phosphorus 3.4 mg/dL (2.5-4.5); Potassium 4.6 mmol/L (3.5-5.1); Sodium 142 mmol/L (137-145); Total Protein 5.7 g/dL (6.3-8.2)
[2022-06-22] MEDS ORDERED: FUROSEMIDE 10 MG/ML 4 ML VIAL IV STA (13:23)
[2022-06-22] MEDS ORDERED: DILTIAZEM DRIP BOLUS FROM BAG 1 MG SOLN IV ONE (13:42)
[2022-06-22] MEDS ORDERED: DILTIAZEM 125 MG in SODIUM CHLORIDE 0.9% 100 ML IV SCH ×2 (13:45→19:45)
[2022-06-22] MEDS ORDERED: NALOXONE 0.4 MG/ML 1 ML VIAL IV PRN (14:25)
[2022-06-22] MEDS ORDERED: ACETAMINOPHEN TAB 325 MG TAB PO PRN (14:25)
[2022-06-22] MEDS ORDERED: ONDANSETRON 4 MG/2 ML VIAL IVP PRN (14:25)
[2022-06-22] MEDS ORDERED: HYDROcodone/APAP 5-325MG 1 EACH TAB PO PRN (14:25)
[2022-06-22] MEDS: PANTOPRAZOLE 40 MG TABLET PO SCH (17:01)
[2022-06-22 17:02] LABS: Glucose,Whole Blood 113 mg/dL (70-110)
[2022-06-22 20:00] LABS: Glucose,Whole Blood 131 mg/dL (70-110)
[2022-06-22] MEDS: OXYBUTYNIN CHLORIDE 5 MG TAB PO SCH (20:08)
[2022-06-22] MEDS: INSULIN DETEMIR (LEVEMIR) 100 UNIT/ML SYR SQ SCH (20:08)
[2022-06-22] MEDS ORDERED: APIXABAN 2.5 MG TABLET PO SCH (21:00)
[2022-06-22] MEDS ORDERED: METOPROLOL TARTRATE 12.5 MG TAB PO SCH (21:00)
[2022-06-23 03:36] LABS: Appearance,Urine Clear (Clear); Bilirubin,Urine Negative (Negative); Blood,Urine Negative (Negative); Color,Urine Colorless; Glucose,Urine (UA) Negative (Negative); Ketones,Urine Negative (Negative); Leukocyte Esterase,Urine Negative (Negative); Nitrite,Urine Negative (Negative); PH, Urine 5.5 (5.0-8.0); Protein,Urine Negative (Negative); Specific Gravity,Urine 1.006 (1.001-1.035); Urobilinogen,Urine <2.0 mg/dL (<2.0)
[2022-06-23 06:04] LABS: Glucose,Whole Blood 99 mg/dL (70-110)
[2022-06-23] MEDS: LEVOTHYROXINE 75 MCG TAB PO SCH (06:04)
[2022-06-23] MEDS: PANTOPRAZOLE 40 MG TABLET PO SCH ×2 (06:04→17:06)
[2022-06-23] MEDS ORDERED: FUROSEMIDE 10 MG/ML 2 ML VIAL IV SCH (09:00)
[2022-06-23] MEDS: OXYBUTYNIN CHLORIDE 5 MG TAB PO SCH ×2 (09:27→20:01)
[2022-06-23] MEDS: APIXABAN 5 MG TAB PO SCH ×2 (09:27→20:01)
[2022-06-23] MEDS: METOPROLOL TARTRATE 25 MG TAB PO SCH ×2 (09:27→20:01)
[2022-06-23] MEDS: metFORMIN 500 MG TAB PO SCH (09:27)
[2022-06-23] MEDS: lisinopriL 5 MG TAB PO SCH (09:27)
[2022-06-23] MEDS: FUROSEMIDE 10 MG/ML 4 ML VIAL IV SCH ×2 (09:27→20:01)
--- NOTE | 2022-06-23 09:55 | P.CRDCN ---
History of Present Illness History of present illness: HISTORY OF PRESENT ILLNESS: This is a 82-year-old female with a past medical history significant for paroxysmal atrial fibrillation, CVA with paralysis of left arm, left whlgz-[id number]-[id number] amputation secondary to osteomyelitis, congestive heart failure, hyperlipidemia, and hypertension. Patient follows in the office with Dr. Posada. We have been asked to see the patient in consultation for congestive heart failure. Patient examined at the bedside. Patient states she presented to the hospital secondary to increased right lower extremity edema. She states this has been going on for the past couple days. She reports shortness of breath although she states this is chronic for her and near her baseline. She does wear 2.5 L of oxygen at home. The patient denies any chest pain or pressure. The patient was found to be in acute congestive heart failure and was given a dose of IV Lasix in the emergency room. Patient was also found to be in A. fib with RVR. She was started on IV Cardizem. This morning she remains in atrial fibrillation with controlled ventricular rates in the [id number]. * EKG reveals A. fib with RVR * Chest xray bilateral infiltrates and pleural effusion. Correlate for asbestos-related disease. * Laboratory data: The WBC 7.8. Hemoglobin 11.9. Platelet count 288. Sodium 142. Potassium 4.6. BUN 18. Creatinine 1.05. Troponin 0.054. ProBNP 20,700 TSH 3.170. * Current home cardiac medications include Eliquis 2.5mg BID, Benzapril 5 mg daily, metoprolol tartrate 12.5 mg twice a day * Most recent echocardiogram obtained in September 2021 ejection fraction 55-60%, mild MR, mild TR. REVIEW OF SYSTEMS: At the time of my exam: CONSTITUTIONAL: Denies fever or chills. HEENT: Denies blurred vision, vision changes, or eye pain. Denies hemoptysis CARDIOVASCULAR: Denies chest pain. Denies orthopnea. Denies PND. Denies palpitations RESPIRATORY: Denies shortness of breath. GASTROINTESTINAL: Denies abdominal pain. Denies nausea or vomiting. HEMATOLOGIC: Denies bleeding disorders. GENITOURINARY: Denies any blood in urine. SKIN: Denies pruitis. Denies rash. PHYSICAL EXAM: VITAL SIGNS: Reviewed. GENERAL: Well-developed in no acute distress. HEENT: Head is normocephalic. Pupils are equal, round. Sclerae anicteric. Mucous membranes of the mouth are moist. Neck supple. No JVD or thyromegaly LUNGS: Respirations even and unlabored. Lungs diminished with crackles at the bases. HEART: Regular rate and rhythm. S1 and S2 heard. ABDOMEN: Soft. Nondistended. Nontender. EXTREMITIES: Normal range of motion. No clubbing or cyanosis. Peripheral pulses intact. Left AKA. 2+ RLE edema. NEUROLOGIC: Awake and alert. Oriented x 3. ASSESSMENT: Shortness of breath with increase RLE edema Acute on chronic heart failure with preserved ejection fraction Paroxysmal atrial fibrillation with RVR History of CVA with paralysis of left arm Left [id number] amputation secondary to osteomyelitis Chronic hypoxic respiratory failure on home oxygen Hypertension Hyperlipidemia PLAN: Obtain 2D echo to assess cardiac structure and function Begin IV lasix 40mg Q12 hours Daily weights, accurate I&O, and monitoring of kidney function Add Farxiga 10 mg daily Increase metoprolol to 25 mg twice a day Discontinue IV Cardizem Add Lipitor 20 mg at night Further recommendations pending patient course Nurse practitioner note has been reviewed by physician. Signing provider agrees with the documented findings, assessment, and plan of care. Past Medical History Past Medical History: Atrial Fibrillation, Cancer, Heart Failure, CVA/TIA, Diabetes Mellitus, Hyperlipidemia, Hypertension, Liver Disease, Pneumonia, Renal Disease, Supraventricular Tachycardia (SVT), Thyroid Disorder Additional Past Medical History / Comment(s): Pt recently admitted on 09/14/21 to [facility] with fall with L hip fracture/surgery, SVT with CHF and had coffee ground emesis during stay. 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 History of Any Multi-Drug Resistant Organisms: None Reported Past Surgical History: Adenoidectomy, Appendectomy, Cholecystectomy, Hysterectomy, Orthopedic Surgery, Tonsillectomy Additional Past Surgical History / Comment(s): 09/18/21 ORIF L hip, bilateral knee arthrotomies, total thyroidectomy, bilateral cataract surgery. Past Anesthesia/Blood Transfusion Reactions: No Reported Reaction Past Psychological History: Depression Smoking Status: Former smoker Past Alcohol Use History: None Reported Past Drug Use History: None Reported - Past Family History Mother Family Medical History: Diabetes Mellitus Son(s) Family Medical History: Cancer Additional Family Medical History / Comment(s): brain tumor Father Family Medical History: Diabetes Mellitus Medications and Allergies Home Medications Medication Instructions Recorded Confirmed Type Benazepril [Lotensin] 5 mg PO DAILY 06/11/15 06/22/22 History Metoprolol Tartrate 12.5 mg PO BID 06/11/15 06/22/22 History Oxybutynin Chloride 5 mg PO BID 06/11/15 06/22/22 History Levothyroxine Sodium [Synthroid] 75 mcg PO DAILY 09/14/21 06/22/22 History Pantoprazole [Protonix] 40 mg PO BID 10/27/21 06/22/22 History Apixaban [Eliquis] 2.5 mg PO BID 02/21/22 06/22/22 History Insulin Glargine,Hum.rec.anlog 10 unit SQ HS 02/21/22 06/22/22 History [Lantus Solostar Pen] metFORMIN HCL 500 mg PO DAILY 06/22/22 06/22/22 History Allergies Allergy/AdvReac Type Severity Reaction Status Date / Time No Known Allergies Allergy Verified 06/22/22 11:38 Physical Exam Vitals: Vital Signs Temp Pulse Pulse Resp BP BP Pulse Ox 06/23/22 03:16 97.9 F 98 20 120/66 93 L 06/22/22 23:28 97.7 F 91 18 111/70 95 06/22/22 20:56 120 H 133/58 06/22/22 20:00 97.6 F 131 H 24 129/80 94 L 06/22/22 15:15 97 F L 101 H 24 142/99 96 06/22/22 14:53 120 H 28 H 116/83 100 06/22/22 13:43 28 H 06/22/22 13:36 110 H 18 118/82 98 06/22/22 10:49 146 H 30 H 121/84 99 06/22/22 10:46 98.1 F 124 H 32 H 121/84 86 L Intake and Output 06/22/22 06/22/22 06/23/22 14:59 22:59 06:59 Intake Total 120 Output Total 600 Balance 120 -600 Intake: Oral 120 Output: Urine 600 Other: Voiding Method Diaper Diaper External Catheter External Catheter # Voids 1 Weight 68.039 kg 68.039 kg Results 06/22/22 11:12 06/22/22 12:05 Cardiac Enzymes 06/22/22 06/22/22 06/22/22 Range/Units 11:12 11:12 12:05 AST 23 20 (14-36) U/L Troponin I 0.054 H* (0.000-0.034) ng/mL Coagulation 06/22/22 Range/Units 11:12 PT 12.1 H (9.0-12.0) sec APTT 27.3 (22.0-30.0) sec CBC 06/22/22 Range/Units 11:12 WBC 7.8 (3.8-10.6) k/uL RBC 5.22 (3.80-5.40) m/uL Hgb 11.9 (11.4-16.0) gm/dL Hct 41.6 (34.0-46.0) % Plt Count 288 (150-450) k/uL Comprehensive Metabolic Panel 06/22/22 06/22/22 Range/Units 11:12 12:05 Sodium 142 142 (137-145) mmol/L Potassium 5.1 4.6 (3.5-5.1) mmol/L Chloride 105 104 (98-107) mmol/L Carbon Dioxide 33 H 34 H (22-30) mmol/L BUN 18 H 18 H (7-17) mg/dL Creatinine 1.07 H 1.05 H (0.52-1.04) mg/dL Glucose 108 H 102 H (74-99) mg/dL Calcium 9.2 8.9 (8.4-10.2) mg/dL AST 23 20 (14-36) U/L ALT 13 13 (4-34) U/L Alkaline Phosphatase 71 66 (38-126) U/L Total Protein 6.2 L 5.7 L (6.3-8.2) g/dL Albumin 3.3 L 3.0 L (3.5-5.0) g/dL Current Medications Generic Name Dose Route Start Last Admin Trade Name Freq PRN Reason Stop Dose Admin Acetaminophen 650 mg 06/22/22 14:25 Acetaminophen Tab 325 Mg Tab PO Q6HR PRN Mild Pain or Fever > 100.5 Hydrocodone Bitart/Acetaminophen 1 each 06/22/22 14:25 Hydrocodone/Apap 5-325mg 1 Each Tab PO Q4HR PRN Moderate Pain (Scale 4 to 6) Apixaban 2.5 mg 06/22/22 21:00 06/22/22 20:08 Apixaban 2.5 Mg Tablet PO 2.5 mg BID NETTIE Administration Protocol Diltiazem HCl 125 mg/ Sodium 125 mls @ 5 mls/hr 06/22/22 19:45 06/22/22 20:08 Chloride IV 5 mg/hr .Q24H NETTIE 5 mls/hr Administration 5 MG/HR Insulin Detemir 10 unit 06/22/22 21:00 06/22/22 20:08 Insulin Detemir (Levemir) 100 Unit/Ml Syr SQ 10 unit HS NETTIE Administration Levothyroxine Sodium 75 mcg 06/23/22 06:30 06/23/22 06:04 Levothyroxine 75 Mcg Tab PO 75 mcg DAILY@0630 NETTIE Administration Lisinopril 5 mg 06/23/22 09:00 Lisinopril 5 Mg Tab PO DAILY NETTIE Metformin HCl 500 mg 06/23/22 09:00 Metformin 500 Mg Tab PO DAILY NETTIE Metoprolol Tartrate 12.5 mg 06/22/22 21:00 06/22/22 20:08 Metoprolol Tartrate 12.5 Mg Tab PO 12.5 mg BID NETTIE Administration Naloxone HCl 0.2 mg 06/22/22 14:25 Naloxone 0.4 Mg/Ml 1 Ml Vial IV Q2M PRN Opioid Reversal Ondansetron HCl 4 mg 06/22/22 14:25 Ondansetron 4 Mg/2 Ml Vial IVP Q8HR PRN Nausea And Vomiting Oxybutynin Chloride 5 mg 06/22/22 21:00 06/22/22 20:08 Oxybutynin Chloride 5 Mg Tab PO 5 mg BID NETTIE Administration Pantoprazole Sodium 40 mg 06/22/22 17:30 06/23/22 06:04 Pantoprazole 40 Mg Tablet PO 40 mg AC-BID NETTIE Administration Intake and Output 06/22/22 06/22/22 06/23/22 14:59 22:59 06:59 Intake Total 120 Output Total 600 Balance 120 -600 Intake: Oral 120 Output: Urine 600 Other: Voiding Method Diaper Diaper External Catheter External Catheter # Voids 1 Weight 68.039 kg 68.039 kg Patient Weight 06/23/22 06:59 Weight 68.039 kg 06/22/22 11:12 06/22/22 12:05
[2022-06-23] MEDS: DAPAGLIFLOZIN PROPANEDIOL 10 MG TABLET PO SCH (11:48)
[2022-06-23 12:05] LABS: Glucose,Whole Blood 69 mg/dL (70-110)
[2022-06-23 12:27] LABS: Glucose,Whole Blood 67 mg/dL (70-110)
[2022-06-23 13:22] LABS: Glucose,Whole Blood 99 mg/dL (70-110)
[2022-06-23 17:12] LABS: Glucose,Whole Blood 172 mg/dL (70-110)
--- NOTE | 2022-06-23 19:31 | CA ---
Transthoracic Echo Report Name: Phoebe Matamoros Age: 82 Gender: F : 1940 Exam Date: 06/23/2022 10:26 Exam Location: [facility] Ht (in): 62 Wt (lb): 150 Ordering Physician: Saumya Agosto Attending/Referring Phys: Progress Clerk Baljit Cortez, TY Procedure CPT: Indications: LV function Cardiac Hx: D.M. HTN;Diabetic arteriopathy Technical Quality: Fair Contrast 1: Total Dose (mL): Contrast 2: Total Dose (mL): MEASUREMENTS (Male / Female) Normal Values 2D ECHO LV Diastolic Diameter PLAX 5.5 cm 4.2 - 5.9 / 3.9 - 5.3 cm LV Systolic Diameter PLAX 4.8 cm IVS Diastolic Thickness 0.7 cm 0.6 - 1.0 / 0.6 - 0.9 cm LVPW Diastolic Thickness 0.8 cm 0.6 - 1.0 / 0.6 - 0.9 cm LV Relative Wall Thickness 0.3 RV Internal Dim ED PLAX 3.6 cm LVOT Diameter 2.0 cm LA Systolic Diameter LX 4.7 cm 3.0 - 4.0 / 2.7 - 3.8 cm LV Diastolic Volume MOD BP 50.4 cm??? 67 - 155 / 56 - 104 cm??? LV Systolic Volume MOD BP 38.8 cm??? 22 - 58 / 19 - 49 cm??? LV Ejection Fraction MOD BP 23.0 % >= 55 % LV Diastolic Volume MOD 4C 49.7 cm??? LV Systolic Volume MOD 4C 36.7 cm??? LV Ejection Fraction MOD 4C 26.1 % LV Diastolic Length 4C 5.6 cm LV Systolic Length 4C 4.5 cm LV Diastolic Volume MOD 2C 47.3 cm??? LV Systolic Volume MOD 2C 36.4 cm??? LV Ejection Fraction MOD 2C 23.0 % LV Diastolic Length 2C 6.1 cm LV Systolic Length 2C 5.0 cm Ascending Aorta Diameter 2.6 cm M-MODE Aortic Root Diameter MM 3.0 cm LA Systolic Diameter MM 4.6 cm LA Ao Ratio MM 1.5 AV Cusp Separation MM 1.5 cm DOPPLER AV Peak Velocity 96.9 cm/s AV Peak Gradient 3.8 mmHg MV Peak Velocity 129.7 cm/s MV Peak Gradient 6.7 mmHg MV Mean Velocity 64.7 cm/s MV Mean Gradient 2.2 mmHg MV Velocity Time Integral 24.5 cm MR Peak Velocity 557.0 cm/s MR Peak Gradient 124.1 mmHg Mitral E Point Velocity 107.4 cm/s Mitral A Point Velocity 35.7 cm/s Mitral E to A Ratio 3.0 MV Deceleration Time 133.9 ms TR Peak Velocity 347.7 cm/s TR Peak Gradient 48.4 mmHg Right Ventricular Systolic Press 56.4 mmHg PV Peak Velocity 69.1 cm/s PV Peak Gradient 1.9 mmHg FINDINGS Left Ventricle Left ventricular ejection fraction is estimated at 30 %. A.Fib rhythm with many PVCs. Trabeculated LV;grade 4 diastolic dysfunction. Dyskinetic anterior wall. Dyskinetic septum. [place] hypokinetic. Moderate concentric left ventricular hypertrophy. Right Ventricle There is right ventricular enlargement consistent with right ventricular volume overload. Right ventricular systolic pressure estimated at 56 mm hg. Right Atrium Mild right atrial dilatation. Left Atrium Moderate left atrial dilatation. Mitral Valve Mild thickening/calcification of the anterior mitral valve leaflet. Moderate thickening/calcification of the posterior mitral valve leaflet. Moderate mitral annular calcification. Lmhtwbzw-zk-panhys mitral regurgitation. Aortic Valve Trileaflet aortic valve. Diffuse thickening (sclerosis) of the aortic valve cusps without reduced excursion. Tricuspid Valve Moderate tricuspid regurgitation. Pulmonic Valve Mild pulmonic regurgitation. Pericardium Normal pericardium. Small pericardial effusion. Aorta Normal size aortic root and proximal ascending aorta. CONCLUSIONS Patient tachycardic, in atrial fibrillation Severe LV dysfunction Enlarged RV, pressure overload with right ventricular hypertrophy Moderate severe mitral regurgitation Small pericardial effusion Previewed by: Dr. Agusto Posada MD (Electronically Signed) Final Date: 23 June 2022 19:31
[2022-06-23 19:59] LABS: Glucose,Whole Blood 226 mg/dL (70-110)
[2022-06-23] MEDS: ATORVASTATIN 20 MG TAB PO SCH (20:01)
[2022-06-23] MEDS: INSULIN DETEMIR (LEVEMIR) 100 UNIT/ML SYR SQ SCH (20:01)
[2022-06-24] MEDS: LEVOTHYROXINE 75 MCG TAB PO SCH (06:13)
[2022-06-24] MEDS: PANTOPRAZOLE 40 MG TABLET PO SCH ×2 (06:13→17:07)
[2022-06-24 06:15] LABS: Glucose,Whole Blood 84 mg/dL (70-110)
[2022-06-24 07:35] LABS: Potassium 3.9 mmol/L (3.5-5.1)
--- NOTE | 2022-06-24 07:55 | PN ---
PROGRESS NOTE DATE OF SERVICE: 06/23/2022 CHIEF COMPLAINT: Swelling and shortness of breath. HISTORY OF PRESENT ILLNESS: This lady is feeling a little bit better. Breathing is improved. PHYSICAL EXAMINATION: CHEST: She still has somewhat decreased breath sounds with rales at the bases. CARDIAC: Normal. ABDOMEN: Soft and nontender. EXTREMITIES: She does have edema of lower extremities. IMPRESSION: 1. Acute congestive heart failure. 2. Diabetes mellitus. 3. Previous cerebrovascular accident. PLAN: Continue with diuresis and increase activity. MMODL / IJN: [id number] /
--- NOTE | 2022-06-24 08:16 | HP ---
HISTORY AND PHYSICAL CHIEF COMPLAINT: Shortness of breath. HISTORY OF PRESENT ILLNESS: This is another admission for this 82-year-old white female who has had a previous stroke long ago, but has retained good mentation and ability to speak. She had presented to the hospital with shortness of breath and was identified as being in congestive heart failure. Her troponin was up slightly, but she did not have any chest pain. BNP was 20,700. REVIEW OF SYSTEMS: She has not had any chest pain, syncope, diaphoresis, etc. Review of systems is otherwise unremarkable or noncontributory. Her diabetes has been under good control. 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 MEDICATIONS: She has been on, 1. Benazepril. 2. Metoprolol. 3. Lantus. 4. Eliquis. 5. Oxybutynin. 6. Lotensin. 7. Protonix. 8. Synthroid. 9. Vicodin occasionally. ALLERGIES: She is not allergic to any medication. PHYSICAL EXAMINATION: VITAL SIGNS: Blood pressure is 132/74 with a pulse of 86, respirations of 35, and she is afebrile. GENERAL: She appeared to be well developed and well nourished, in no acute distress. SKIN: Color is normal, skin is warm and dry. LYMPHATICS: Lymph nodes not enlarged. HEENT: Head, ears, eyes, nose, mouth and throat were normal. CHEST: Demonstrated decreased breath sounds with scattered rales throughout and particularly decreased breath sounds at the bases. CARDIAC: Demonstrated sinus tachycardia. ABDOMEN: Soft and slightly distended. EXTREMITIES: Lower extremities were significantly edematous at about 2 to 3+. NEUROLOGIC: She is intact except for left-sided hemiparesis. DIAGNOSES: She is admitted to the hospital with diagnoses, 1. Acute congestive heart failure. 2. Type 2 diabetes mellitus. 3. Previous cerebrovascular accident with left hemiparesis. 4. History of carcinoma of the thyroid. PLAN: 1. Bedrest. 2. IV fluids. 3. Echocardiogram. 4. Diuresis. MMODL / IJN: [id number] /
[2022-06-24] MEDS: METOPROLOL TARTRATE 25 MG TAB PO SCH ×2 (08:55→20:38)
[2022-06-24] MEDS: APIXABAN 5 MG TAB PO SCH ×2 (08:55→20:38)
[2022-06-24] MEDS: OXYBUTYNIN CHLORIDE 5 MG TAB PO SCH ×2 (08:55→20:38)
[2022-06-24] MEDS: DAPAGLIFLOZIN PROPANEDIOL 10 MG TABLET PO SCH (08:55)
[2022-06-24] MEDS: lisinopriL 5 MG TAB PO SCH (08:55)
[2022-06-24] MEDS: metFORMIN 500 MG TAB PO SCH (08:55)
[2022-06-24] MEDS: FUROSEMIDE 10 MG/ML 4 ML VIAL IV SCH ×2 (08:55→20:38)
--- NOTE | 2022-06-24 10:37 | P.PN ---
Subjective Progress Note Date: 06/24/22 PROGRESS NOTE The patient is an 82-year-old female with a history of paroxysmal atrial ablation, status post CVA, she presented with worsening edema and atrial fibrillation, she is back in sinus mechanism. She's feeling better. Her breathing is better. She denies any dizziness or palpitations. She denies any nausea or vomiting. Hemodynamically she is stable. She had an echocardiogram that showed a severely impaired systolic function while she was in atrial fibrillation which is significantly different from her prior echo. Medications: Lasix 40 mg IV every 12, lisinopril 5 mg daily, metformin 500 mg twice a day, metoprolol 25 mg twice a day, Protonix,Farxiga 10 milligrams daily, insulin, Li pitor 20 mg daily, Eliquis 5 mg twice a day PHYSICAL EXAMINATION: Blood pressure 120/60 heart rate 60 LUNGS: Few crackles at the base HEART: Regular rate and rhythm, S1, S2. No S3. systolic ejection murmur ABDOMEN: Soft, nontender, no organomegaly EXTREMETIES: +1-2 right edema, post left AKA LAB: BUN 18, creatinine 1.05 IMPRESSION: 1. Acute CHF with reduced ejection fraction could be exacerbated by the atrial fibrillation 2. Paroxysmal atrial ablation, back in sinus mechanism 3. History of hypertension 4. History of hyperlipidemia PLAN: 1. Continue IV diuretics 2. Follow renal functions 3. Increase the dose of lisinopril if blood pressure is stable 4. Add Aldactone 5. Depending on her progress further recommendations will be made Objective - Vital Signs Vital signs: Vital Signs Temp 98.0 F 06/24/22 08:50 Pulse 62 06/24/22 08:50 Resp 18 06/24/22 08:50 BP 165/65 06/24/22 08:50 Pulse Ox 90 L 06/24/22 08:50 FiO2 Intake & Output 06/23/22 06/24/22 06/24/22 18:59 06:59 18:59 Intake Total 920 Output Total 1350 3000 Balance -430 -3000 Weight 67.4 kg Intake: Oral 920 Output: Urine 1350 3000 Stool 0 Other: Voiding Method Diaper Diaper External Catheter External Catheter # Voids 1 - Labs CBC & Chem 7: 06/22/22 11:12 06/24/22 07:11 Labs: Abnormal Lab Results - Last 24 Hours (Table) 06/23/22 06/23/22 06/23/22 Range/Units 12:03 12:26 17:01 Carbon Dioxide (22-30) mmol/L BUN (7-17) mg/dL Creatinine (0.52-1.04) mg/dL POC Glucose (mg/dL) 69 L 67 L 172 H (70-110) mg/dL 06/23/22 06/24/22 Range/Units 19:58 07:11 Carbon Dioxide 37 H (22-30) mmol/L BUN 18 H (7-17) mg/dL Creatinine 1.05 H (0.52-1.04) mg/dL POC Glucose (mg/dL) 226 H (70-110) mg/dL
[2022-06-24] MEDS: SPIRONOLACTONE 25 MG TAB PO SCH (11:31)
[2022-06-24 11:54] LABS: Glucose,Whole Blood 97 mg/dL (70-110)
[2022-06-24 16:41] LABS: Glucose,Whole Blood 205 mg/dL (70-110)
[2022-06-24 20:13] LABS: Glucose,Whole Blood 201 mg/dL (70-110)
[2022-06-24] MEDS: ATORVASTATIN 20 MG TAB PO SCH (20:38)
[2022-06-24] MEDS: INSULIN DETEMIR (LEVEMIR) 100 UNIT/ML SYR SQ SCH (20:39)
--- NOTE | 2022-06-24 22:01 | PN ---
PROGRESS NOTE CHIEF COMPLAINT: Congestive heart failure. HISTORY OF PRESENT ILLNESS: This lady is feeling better. Her breathing is improved. PHYSICAL EXAMINATION: CHEST: She still has rales in both bases and throughout both lung cline. CARDIAC: Unchanged. ABDOMEN: Soft and nontender. IMPRESSION: 1. Congestive heart failure. 2. Old cerebrovascular accident. PLAN: Continue with diuresis and she may be able to go home in the next day or 2. MMODL / IJN: [id number] /
[2022-06-25 06:08] LABS: Glucose,Whole Blood 79 mg/dL (70-110)
[2022-06-25] MEDS: PANTOPRAZOLE 40 MG TABLET PO SCH ×2 (06:15→17:51)
[2022-06-25] MEDS: LEVOTHYROXINE 75 MCG TAB PO SCH (06:15)
[2022-06-25] MEDS: metFORMIN 500 MG TAB PO SCH (08:19)
[2022-06-25] MEDS: lisinopriL 5 MG TAB PO SCH ×2 (08:19→21:55)
[2022-06-25] MEDS: FUROSEMIDE 10 MG/ML 4 ML VIAL IV SCH ×2 (08:19→21:55)
[2022-06-25] MEDS: OXYBUTYNIN CHLORIDE 5 MG TAB PO SCH ×2 (08:19→21:54)
[2022-06-25] MEDS: SPIRONOLACTONE 25 MG TAB PO SCH (08:19)
[2022-06-25] MEDS: METOPROLOL TARTRATE 25 MG TAB PO SCH ×2 (08:19→21:55)
[2022-06-25] MEDS: DAPAGLIFLOZIN PROPANEDIOL 10 MG TABLET PO SCH (08:20)
[2022-06-25] MEDS: APIXABAN 5 MG TAB PO SCH ×2 (08:20→21:55)
[2022-06-25 11:22] LABS: Calcium 9.4 mg/dL (8.4-10.2); Potassium 4.1 mmol/L (3.5-5.1)
[2022-06-25 11:46] LABS: Glucose,Whole Blood 72 mg/dL (70-110)
--- NOTE | 2022-06-25 12:05 | P.PN ---
Subjective Progress Note Date: 06/25/22 PROGRESS NOTE The patient is an 82-year-old female with a history of paroxysmal atrial ablation, status post CVA, she presented with worsening edema and atrial fibrillation, she is back in sinus mechanism. She's feeling better. Her breathing is better. She denies any dizziness or palpitations. She denies any nausea or vomiting. Hemodynamically she is stable. She had an echocardiogram that showed a severely impaired systolic function while she was in atrial fibrillation which is significantly different from her prior echo. June 25: She feels better today but she continues to have peripheral edema and some dyspnea. She denies any dizziness or palpitations. She denies any cough or fever. Hemodynamically she is stable. Medications: Lasix 40 mg IV every 12, lisinopril 5 mg daily, metformin 500 mg twice a day, metoprolol 25 mg twice a day, Protonix,Farxiga 10 milligrams daily, insulin, L ipitor 20 mg daily, Eliquis 5 mg twice a day, Aldactone 25 mg daily PHYSICAL EXAMINATION: Blood pressure 160/50 heart rate 60 LUNGS: Few crackles at the base HEART: Regular rate and rhythm, S1, S2. No S3. systolic ejection murmur ABDOMEN: Soft, nontender, no organomegaly EXTREMETIES: +1-2 right edema, post left AKA LAB: BUN 19, creatinine 1.13 IMPRESSION: 1. Acute CHF with reduced ejection fraction could be exacerbated by the atrial fibrillation 2. Paroxysmal atrial fibrillation, back in sinus mechanism 3. History of hypertension 4. History of hyperlipidemia PLAN: 1. Continue IV diuretics 2. Follow renal functions 3. Increase the dose of lisinopril 4. If stable switch to oral diuretics tomorrow and maximize medical therapy 5. Patient would require evaluation of her cardiomyopathy, probably as outpatient Objective - Vital Signs Vital signs: Vital Signs Temp 97.6 F 06/25/22 08:00 Pulse 61 06/25/22 08:00 Resp 18 06/25/22 08:00 BP 161/56 06/25/22 08:00 Pulse Ox 92 L 06/25/22 08:10 FiO2 Intake & Output 06/24/22 06/25/22 06/25/22 17:59 06:59 18:59 Intake Total 248 Output Total Balance 248 Weight Intake: IV 10 Invasive Line 2 10 Oral 238 Output: Urine Stool Other: Voiding Method Diaper External Catheter - Labs CBC & Chem 7: 06/22/22 11:12 06/25/22 10:45 Labs: Abnormal Lab Results - Last 24 Hours (Table) 06/24/22 06/24/22 06/25/22 Range/Units 16:40 20:12 10:45 Chloride 92 L (98-107) mmol/L Carbon Dioxide 40 H (22-30) mmol/L BUN 19 H (7-17) mg/dL Creatinine 1.13 H (0.52-1.04) mg/dL POC Glucose (mg/dL) 205 H 201 H (70-110) mg/dL
[2022-06-25 13:23] LABS: Glucose,Whole Blood 124 mg/dL (70-110)
[2022-06-25 16:32] LABS: Glucose,Whole Blood 174 mg/dL (70-110)
--- NOTE | 2022-06-25 19:58 | PN ---
PROGRESS NOTE DATE OF SERVICE: 06/25/2022 CHIEF COMPLAINT: Congestive heart failure. HISTORY OF PRESENT ILLNESS: This lady is feeling well. Her shortness of breath is better, but she still has significant edema of the lower extremities. PHYSICAL EXAMINATION: GENERAL: She is awake and alert. CHEST: She still demonstrates rales at the bases with decreased breath sounds. CARDIAC: Normal. EXTREMITIES: She still has a lot of edema in the left thigh and the right lower leg. IMPRESSION: 1. Congestive heart failure. 2. Previous cerebrovascular accident. 3. Diabetes. PLAN: Continue with diuresis. Cancel discharge for today. MMODL / IJN: [id number] /
[2022-06-25 21:02] LABS: Glucose,Whole Blood 211 mg/dL (70-110)
[2022-06-25] MEDS: ATORVASTATIN 20 MG TAB PO SCH (21:55)
[2022-06-25] MEDS: INSULIN DETEMIR (LEVEMIR) 100 UNIT/ML SYR SQ SCH (21:55)
[2022-06-26 06:07] LABS: Glucose,Whole Blood 70 mg/dL (70-110)
[2022-06-26] MEDS: PANTOPRAZOLE 40 MG TABLET PO SCH ×2 (06:21→17:11)
[2022-06-26] MEDS: LEVOTHYROXINE 75 MCG TAB PO SCH (06:21)
[2022-06-26 06:49] LABS: Calcium 8.8 mg/dL (8.4-10.2); Potassium 3.8 mmol/L (3.5-5.1)
[2022-06-26] MEDS: SPIRONOLACTONE 25 MG TAB PO SCH (08:45)
[2022-06-26] MEDS: lisinopriL 5 MG TAB PO SCH ×2 (08:45→21:00)
[2022-06-26] MEDS: OXYBUTYNIN CHLORIDE 5 MG TAB PO SCH ×2 (08:45→21:00)
[2022-06-26] MEDS: METOPROLOL TARTRATE 25 MG TAB PO SCH ×2 (08:45→21:00)
[2022-06-26] MEDS: APIXABAN 5 MG TAB PO SCH ×2 (08:45→21:00)
[2022-06-26] MEDS: DAPAGLIFLOZIN PROPANEDIOL 10 MG TABLET PO SCH (08:45)
[2022-06-26] MEDS: FUROSEMIDE 10 MG/ML 4 ML VIAL IV SCH (08:45)
[2022-06-26] MEDS: metFORMIN 500 MG TAB PO SCH (08:45)
[2022-06-26 12:06] LABS: Glucose,Whole Blood 160 mg/dL (70-110)
--- NOTE | 2022-06-26 12:21 | CA ---
Transthoracic Echo Report Name: Phoebe Matamoros Age: 82 Gender: F : 1940 Exam Date: 06/26/2022 09:34 Exam Location: [facility] Ht (in): 62 Wt (lb): 135 Ordering Physician: Riri Collins MD ([id number]) Attending/Referring Phys: Anesthesia Assistant Meli Greenfield RDCS Procedure CPT: Indications: check LV function Cardiac Hx: Technical Quality: Fair Contrast 1: Total Dose (mL): Contrast 2: Total Dose (mL): MEASUREMENTS (Male / Female) Normal Values 2D ECHO LV Diastolic Diameter PLAX 4.6 cm 4.2 - 5.9 / 3.9 - 5.3 cm LV Systolic Diameter PLAX 3.3 cm IVS Diastolic Thickness 1.3 cm 0.6 - 1.0 / 0.6 - 0.9 cm LVPW Diastolic Thickness 1.6 cm 0.6 - 1.0 / 0.6 - 0.9 cm LV Relative Wall Thickness 0.6 FINDINGS Left Ventricle Mildly increased left ventricular wall thickness. Moderately reduced global left ventricular systolic function. Left ventricular ejection fraction is estimated at 40-45 %. Right Ventricle Right Atrium Left Atrium Mitral Valve Aortic Valve Tricuspid Valve Pulmonic Valve Pericardium Aorta CONCLUSIONS Impaired LV function with EF between 40-45% Previewed by: Dr. Emmanuel Sarmiento MD (Electronically Signed) Final Date: 26 June 2022 12:20
--- NOTE | 2022-06-26 16:30 | PN ---
PROGRESS NOTE SUBJECTIVE: Ms. Matamoros is breathing much better today. She does not have any chest discomfort or shortness of breath. She has a left above-knee amputation and chronic atrial fibrillation. Rate control is fairly good. I am recommending to switch her from IV to oral Lasix, check echocardiogram, increase activity, and plan for discharge today. Her LV function was lower. I am recommending a limited repeat echo to assess LV function. OBJECTIVE: VITAL SIGNS: Stable. NECK: JVD 1 cm. HEART: Reveals regular rhythm. S1 and S2 with a short systolic murmur. LUNGS: Reveal diminished air entry. ABDOMEN: Unremarkable. EXTREMITIES: She has a left above-knee amputation. PLAN: To switch her to oral Lasix. Do a limited echo to see if LV function has improved now that she is in sinus rhythm and plan for discharge today. MMODL / IJN: [id number] /
[2022-06-26 16:32] LABS: Glucose,Whole Blood 169 mg/dL (70-110)
[2022-06-26 16:44] VITALS: TEMP 97.6
[2022-06-26] MEDS: FUROSEMIDE 40 MG TAB PO SCH (17:11)
[2022-06-26] MEDS: ATORVASTATIN 20 MG TAB PO SCH (21:00)
[2022-06-26] MEDS: INSULIN DETEMIR (LEVEMIR) 100 UNIT/ML SYR SQ SCH (21:10)
[2022-06-26 23:42] VITALS: RESP 16
[2022-06-27] MEDS: PANTOPRAZOLE 40 MG TABLET PO SCH (06:11)
[2022-06-27] MEDS: LEVOTHYROXINE 75 MCG TAB PO SCH (06:11)
[2022-06-27 06:14] LABS: Glucose,Whole Blood 92 mg/dL (70-110)
[2022-06-27] MEDS: FUROSEMIDE 40 MG TAB PO SCH (10:00)
[2022-06-27] MEDS: METOPROLOL TARTRATE 25 MG TAB PO SCH (10:01)
[2022-06-27] MEDS: SPIRONOLACTONE 25 MG TAB PO SCH (10:01)
[2022-06-27] MEDS: DAPAGLIFLOZIN PROPANEDIOL 10 MG TABLET PO SCH (10:01)
[2022-06-27] MEDS: OXYBUTYNIN CHLORIDE 5 MG TAB PO SCH (10:01)
[2022-06-27] MEDS: metFORMIN 500 MG TAB PO SCH (10:01)
[2022-06-27] MEDS: APIXABAN 5 MG TAB PO SCH (10:01)
[2022-06-27] MEDS: lisinopriL 5 MG TAB PO SCH (10:01)
[2022-06-27 10:58] VITALS: BMI 23.6
[2022-06-27 11:25] VITALS: BP 140/67; PULSE 51
[2022-06-27 11:46] LABS: Glucose,Whole Blood 128 mg/dL (70-110)
--- NOTE | 2022-06-27 22:24 | PN ---
PROGRESS NOTE SUBJECTIVE: Ms. Matamoros is in sinus rhythm, feeling better. Her echo revealed improved ejection fraction. OBJECTIVE: VITAL SIGNS: Stable. NECK: JVD is not evident. HEART: S1 and S2 heard normally. LUNGS: Clear. ABDOMEN: Unchanged. LOWER EXTREMITIES: Unchanged. She has a known amputation. PLAN: She can be discharged on current medical regimen with increase in activity and follow up with Dr. Khoury. MMODL / IJN: [id number] /
[2022-06-28] MEDS ORDERED: METOPROLOL SUCCINATE (ER) 25 MG TAB.ER.24H PO SCH (09:00)
--- NOTE | 2022-06-29 21:27 | PN ---
PROGRESS NOTE DATE OF SERVICE: 06/26/2022 CHIEF COMPLAINT: Congestive heart failure. HISTORY OF PRESENT ILLNESS: This lady is doing well and feeling fine, but she is still edematous and still has occasional rales. PHYSICAL EXAMINATION: CHEST: She has scattered rales posteriorly. CARDIAC: Otherwise unremarkable. ABDOMEN: Soft. EXTREMITIES: She still has about 3 to 4+ edema in the left leg amputation as well as the right leg. IMPRESSION: Congestive heart failure. PLAN: Continue diuresis for another day and cancel discharge for today. MMODL / IJN: [id number] /
--- NOTE | 2022-06-30 00:48 | DS ---
DISCHARGE SUMMARY CHIEF COMPLAINT: Difficulty breathing. HISTORY OF PRESENT ILLNESS AND PHYSICAL EXAMINATION: Details of this lady's history and physical can be found in the initial workup. LABORATORY STUDIES: While she is in the hospital, she had laboratory studies, details of which can be found in the laboratory section of her chart. COURSE IN HOSPITAL: After admission, she was placed on bedrest and started on intravenous fluids and diuresis. Breathing improved quite quickly. Peripheral edema also began to subside. She was doing well and was anxious to be discharged on the and she will go home on her usual medication and diet and we will work towards getting her on Entresto. She will come to the office several days after discharge. FINAL DIAGNOSES: 1. Acute congestive heart failure. 2. Chronic congestive heart failure. 3. Previous cerebrovascular accident. 4. Type 2 diabetes mellitus. OPERATIONS: None. CONSULTATIONS: Cardiology. CONDITION: Improved. EVGENY / SURINDER: [id number] /
== END 2022-06-27 14:20 | disposition home health service (06) | DRG 291 ==
LOC: EC 10:41 → 3SCARD 13:45
PROVIDERS: ADMIT Family Medicine; ATTEND Family Medicine
DX: I13.0 Hypertensive heart and chronic kidney disease with heart failure and stage 1 through stage 4 chronic kidney disease, or unspecified chronic kidney disease (principal); I50.33 Acute on chronic diastolic (congestive) heart failure; I69.354 Hemiplegia and hemiparesis following cerebral infarction affecting left non-dominant side; N18.4 Chronic kidney disease, stage 4 (severe); J96.11 Chronic respiratory failure with hypoxia; I47.1 Supraventricular tachycardia; E11.22 Type 2 diabetes mellitus with diabetic chronic kidney disease; I48.0 Paroxysmal atrial fibrillation; I27.20 Pulmonary hypertension, unspecified; Z99.81 Dependence on supplemental oxygen; Z79.01 Long term (current) use of anticoagulants; Z79.84 Long term (current) use of oral hypoglycemic drugs; Z79.890 Hormone replacement therapy; Z79.899 Other long term (current) drug therapy; Z83.3 Family history of diabetes mellitus; Z85.850 Personal history of malignant neoplasm of thyroid; Z86.19 Personal history of other infectious and parasitic diseases; Z87.440 Personal history of urinary (tract) infections; Z89.612 Acquired absence of left leg above knee; Z28.311 Partially vaccinated for COVID-19; Z28.21 Immunization not carried out because of patient refusal; Z20.822 Contact with and (suspected) exposure to COVID-19
CPT/HCPCS: 36415; 71046; 80048; 80053; 81003; 83605; 83735; 83880; 84100; 84443; 84484; 85025; 85610; 85730; 87636; 93005; 93306; 93308; 94760; 96374; 99285

== ENCOUNTER 2024-08-23 19:51 | Emergency (ER) | payer MEDICARE, BC ==
[2024-08-23 20:00] VITALS: RESP 18; TEMP 98.6
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
--- NOTE | 2024-08-23 20:39 | XR ---
EXAMINATION TYPE: XR hand complete LT DATE OF EXAM: 08/23/2024 8:16 PM COMPARISON: None CLINICAL INDICATION: Female, 84 years old with history of pain; PHH, pain TECHNIQUE: XR hand complete LT 23 views were obtained. FINDINGS: Complex fracture of the first digit proximal phalanx with some shortening. Additionally the head neck region of the second metacarpal also appears to have cortical irregularity. Atherosclerosi s of the arterial vasculature. IMPRESSION: 1. Complex fracture of the first digit proximal phalanx. 2. Possible fracture of the second metacarpal head/neck region. Correlate with point tenderness. [facility], , 08/23/2024 8:37 PM
[2024-08-23] MEDS: CEPHALEXIN 500 MG CAP PO STA (20:55)
[2024-08-23 22:01] VITALS: BP 177/74; PULSE 64
[2024-08-23] MEDS: CEPHALEXIN 500MG STARTER PACK 4 CAP BTL PO STA (22:02)
== END 2024-08-23 22:42 | disposition home or self-care (01) ==
LOC: EC 19:51
DX: S62.92XA Unspecified fracture of left hand, initial encounter for closed fracture (principal); Z87.891 Personal history of nicotine dependence; V89.2XXA Person injured in unspecified motor-vehicle accident, traffic, initial encounter; Y92.410 Unspecified street and highway as the place of occurrence of the external cause
CPT/HCPCS: 99284